=== PATIENT | female | born 1935 | race Caucasian/White ===

== ENCOUNTER 2017-08-01 10:46 | Inpatient (IN) | payer MEDICARE, OTHER ==
[~2017-08-01] VITALS: Ht 180.3 cm; Wt 72.8 kg
[~2017-08-01 10:46] MED LIST: ASPI-9 PO; CYCL10TA9 PO; DCS100C PO; DILT30TA30 PO; ESOM20CA PO; FLUC100T PO; HYDR-3730 PO; LORA0.5T PO; LORA2TAB PO; MIRT30TA6 PO; NITR-65 PO; ONDA-43 PO; POLY17PO23 GT; PRIM250T33 PO; PROM50SU10 RC; QUET25TA PO; QUET50TA PO; SENN8.6T80 GT; SUCR1TAB23 PO; TRAM-21 PO
[2017-08-01] MEDS ORDERED: FAMOTIDINE 20 MG (PEPCID) TABLET PO PRN (12:30)
[2017-08-01] MEDS: FAMOTIDINE 20 MG (PEPCID) TABLET PO SCH ×2 (13:30→20:52)
[2017-08-01] MEDS: clonazePAM 0.5 MG (KlonoPIN) TAB PO SCH ×2 (13:56→20:51)
[2017-08-01 15:00] VITALS: BP 103/63
--- NOTE | 2017-08-01 15:33 | Physical Therapy Evaluation ---
PT Evaluation-General Medical Diagnosis Admission Date Aug 01, 2017 at 14:25 Medical Diagnosis: Right distal femoral fracture Onset Date: Jul 26, 2017 Therapy Diagnosis Therapy Diagnosis: Poor activity tolerance, functional mobility, weakness, pain Height/Weight Height (Feet): 5 Height (Inches): 11.00 Weight (Pounds): 132 Precautions Precautions/Isolations: Fall Prevention, Standard Precautions NWB on the RLE Weight Bear Status Right Lower Extremity: Right Non Weight Bearing Left Lower Extremity: Left Full Weight Bearing Referral Physician: Michael Reason for Referral: Evaluation/Treatment Medical History Additional Medical History TKA in R and L, BEATRICE in R, pacemaker Current History s/p R femoral fracture and underwent ORIF and developed acute renal failure and acute blood loss Reviewed History: Yes Social History Home: Apartment Current Living Status: Alone Entry Into Home: Stairs With Railing PT Steps Into Home: 2 PT Steps Inside Home: 1 Pt has daughter visit everyday and another woman is with her to help with bathing for 4-6 hours per day. Prior/Core FIM Prior Level of Function Functional [place] Measure 0=Not Assessed/NA 4=Minimal Assistance 1=Total Assistance 5=Supervision or Setup 2=Maximal Assistance 6=Modified [place] 3=Moderate Assistance 7=Complete [place] Bed Mobility: 7 Transfers (B,C,W/C) (FIM): 6 Gait: 6 Locomotion: 6 Patient was using a 4 wheeled walker PT Evaluation-Current Subjective Pt is sitting in [facility] pre tx and rates pain at 5/10 in the R distal thigh. Pt agrees to PT. Pain Numeric Pain Scale: 5-Moderate Pain Pt/Family Goals [place] at home with woman visiting for 4-6 hours per day Objective Patient Orientation: Person, Place, Situation Attachments: Knee Immobilizer HELEN wrap on RLE from ankle to distal thigh ROM/Strength ROM Lower Extremities R: NT due to knee immobilizer L: grossly WNL with mild tightness in hip IR Strenght Lower Extremities NT Integumentary/Posture Integumentary Patient had a lot of swelling in her right lower extremity, especially in her foot, but it was not pitting. Nurse notified. Neuromuscular (Tone, Coordination, Reflexes) NT Sensory Vision: Functional Hearing: Functional Sensation Right Lower Extremit: Intact Sensation Left Lower Extremity: Intact Sensation Lower Extremities Patient had intact light touch sensation tested in both lower extremities. Transfers Functional [place] Measure 0=Not Assessed/NA 4=Minimal Assistance 1=Total Assistance 5=Supervision or Setup 2=Maximal Assistance 6=Modified [place] 3=Moderate Assistance 7=Complete IndependenceIRFPAI Quality Coding Scale 6 Independent with activity with or without an assistive device 5 Patient requires set up or clean up by helper. Patient completes activity by themselves 4 Supervision or touching assist (CGA). [place] provide cues , steadying assist 3 The helper provides less than half the effort to complete the activity 2 The helper provides more than half the effort to complete the activity 1 Dependent. The helper does all the effort to complete an activity 7 Patient refused to complete or attempt activity 9 The patient did not perform the activity before the current illness or injury 88 Not attempted due to Medical conditions or safety concerns Transfers (B, C, W/C) (FIM): 1 Scootin Rollin Roll Left to Right (QC): 4 Supine to/from Sit: 4 Sit to/from Stand: 1 bed t/f WC(FIM only if WC use): 1 Sit to Lying (QC): 4 Lying to Sitting/Side of Bed(Q: 4 Sit to Stand (QC): 1 Chair/Vvx-qq-Epohe Xfer(QC): 1 Car Transfer (QC): 88 Patient performed bed mobility with min assist, all transfers and sit to stand was total assist Gait Does the Patient Walk?: No and Walking Goal IS indicated Mode of Locomotion: Wheelchair Anticipated Mode of Locomotion: Walk Gait (FIM): 0 Distance (FIM): 0=does not occure Walk 10 feet (QC): 88 Walk 50 ft with 2 Turns(QC): 88 Walk 150 ft (QC): 88 Walking 10ft/uneven surface-QC: 88 Distance: 0 feet Comments/Gait Description Pt is not yet walking. She is dependent for just standing. Wheelchair Training Does the Pt Use a Wheelchair?: No Stairs Pt did not perform steps because she is not yet walking. Balance Sitting Static: Normal Sitting Dynamic: Poor Standing Static: Poor Standing Dynamic: Poor Picking up an Object (QC): 88 Treatment Pt performing bed mobility and functional activity. Assessment/Needs Pt seems to be fearful of standing as she requires total A for sit to stand and bed to chair transfer. As time went on, pain in R distal thigh increase form / 10 to 7/10. Rehab Potential: Fair Equipment Needs FWW PT Short Term Goals Short Term Goals Time Frame: Aug 08, 2017 Transfers (B,C,W/C) (FIM): 3 Gait (FIM): 1 Distance (FIM): 7=225-39 ft Gait Distance Comment: 20' Gait Level of Assist: 4 Gait Assistive Device: FWW Wheelchair (FIM): 5 Wheelchair distance (FIM): 8=777-31 ft Wheelchair Distance: 150 feet Wheelchair Level of Assist: 5 PT Prison Goals Prison Goals PT Prison Goals Time Frame: Aug 22, 2017 Transfers (B,C,W/C) (FIM): 5 Sit to Lying (QC): 4 Lying-Sitting on Side/Bed(QC): 4 Sit to Stand (QC): 4 Rollin Roll Left to Right (QC): 4 Chair/Pgg-vs-Uhfqa Xfer(QC): 4 Car Transfer (QC): 4 Does the Patient Walk: No and Walking Goal IS indicated Gait (FIM): 2 Distance: 50' Walk 10 feet (QC): 4 Walk 10ft-Uneven Surface(QC): 4 Walk 50ft with 2 Turns (QC): 4 Walk 150 ft (QC): 4 Gait Level of Assist: 5 Gait Assistive Device: FWW Does the Pt use WC or Scooter?: No Stairs (FIM): 2 # of Steps: 4 1 Step (curb) (QC): 4 4 Steps (QC): 4 12 Steps (QC): 88 Stairs Level Of Assist: 4 PT Plan Problem List Problem List: Activity Tolerance, Functional Strength, Safety, Balance, Gait, Transfer, Bed Mobility, ROM Treatment/Plan Treatment Plan: Continue Plan of Care Treatment Plan: Bed Mobility, Education, Functional Activity Ana, Functional Strength, Group Therapy, Gait, Safety, Therapeutic Exercise, Transfers Treatment Duration: Aug 22, 2017 Frequency: At least 5 of 7 days/Wk (IRF) Estimated Hrs Per Day: 1.5 hours per day Patient and/or Family Agrees t: Yes Safety Risks/Education Patient Education: Transfer Techniques, Reviewed Precautions, Correct Positioning, W/C Management, Reviewed Don/Doff Brace, Disease Process, Safety Issues Teaching Recipient: Patient Teaching Methods: Demonstration, Discussion Response to Teaching: Reinforcement Needed Discharge Recommendations Plan Patient will perform bed mobility and transfer training, balance and endurance training, functional strengthening, stair training, gait training, and education , to improve functional mobility and independence at home. Therapy D/C Recommendations: Home w/ Family Support, Senior Care (TCU/NH) Time/GCodes Time In: 1414 Time Out: 1514 Total Billed Treatment Time: 60 Total Billed Treatment 1 visit 10' EVM 40' FA PT performed evaluation from [id number]. OT performed evaluation from 1424- 1434. PT and OT co-treated from [id number] for 40'. PT worked on bed mobility, transfers, standing and sitting balance. OT worked on upper extremity positioning during transfers and ADL's. LISE BRUCE PT Aug 01, 2017 15:33
[2017-08-01] MEDS ORDERED: LACTOBACILLUS Acidoph/Bulgar (LACTINEX/FLORANEX) TAB PO SCH (16:00)
--- NOTE | 2017-08-01 16:08 | Physical Therapy Daily Note ---
PT Daily Note-Current Subjective Pt. states she has a fear of falling and will work on trying to let that go so she can participate in Rx better. Pain Numeric Pain Scale: 3 Location: Right Location Body Site: Knee Pain Description: Pressure Transfers Functional [place] Measure 0=Not Assessed/NA 4=Minimal Assistance 1=Total Assistance 5=Supervision or Setup 2=Maximal Assistance 6=Modified [place] 3=Moderate Assistance 7=Complete IndependenceIRFPAI Quality Coding Scale 6 Independent with activity with or without an assistive device 5 Patient requires set up or clean up by helper. Patient completes activity by themselves 4 Supervision or touching assist (CGA). [place] provide cues , steadying assist 3 The helper provides less than half the effort to complete the activity 2 The helper provides more than half the effort to complete the activity 1 Dependent. The helper does all the effort to complete an activity 7 Patient refused to complete or attempt activity 9 The patient did not perform the activity before the current illness or injury 88 Not attempted due to Medical conditions or safety concerns Transfers (B, C, W/C) (FIM): 2 Scootin Rollin Supine to/from Sit: 4 Sit to/from Stand: 2 Weight Bearing Right Lower Extremity: Right Non Weight Bearing Left Lower Extremity: Left Full Weight Bearing Exercises Supine Ex: Ankle pumps (bilkat), Rolling, Straight leg raise Supine Reps: 10 Treatments During SPT toward pts left pt. required mod to max assist of 1-2 BSC to bed. sit to stand x 3 with pt. expressing fear and clinging to the arms of the w/c and BSC requiring instruction and explanation as well as reassurance that she is safe here with therapists for TRFs and mobility. immobilizer insitu on RLE. Pt. in bed after TRF training and toileting with RLE elevated. co Rx with OT for balance and NWB patency during pants up down for toileting. troubleshooting and problem solving for appropriate w/c height as well as likely appropriate TRF mode for nurses was established likely the slide board or 2 man SPT. Assessment Current Status: Good Progress pt. tall at 5ft 11.5 in and will profit from tall w/c and cushion as well as lift recline chair. A shoe was applied L foot to attempt to increase pts height for TRF clearance PT Plan Problem List Problem List: Activity Tolerance, Functional Strength, Safety, Balance, Gait, Transfer, Bed Mobility, ROM Treatment/Plan Treatment Plan: Continue Plan of Care Treatment Plan: Bed Mobility, Concurrent Therapy, Education, Functional Activity Ana, Functional Strength, Group Therapy, Gait, Safety, Therapeutic Exercise, Transfers Treatment Duration: Aug 22, 2017 Frequency: At least 5 of 7 days/Wk (IRF) Estimated Hrs Per Day: 1.5 hours per day Patient and/or Family Agrees t: Yes Safety Risks/Education Patient Education: Transfer Techniques, Correct Positioning, Safety Issues Teaching Recipient: Patient Teaching Methods: Demonstration Response to Teaching: Verbalize Understanding, Unable to Return Demonstration ( fearful), Reinforcement Needed Time/GCodes Time In: 1515 Time Out: 1555 Total Billed Treatment Time: 40 Total Billed Treatment 1,FA40m co Rx w OT G Codes Necessary: NIKKI Molina LEADITE HEATER Aug 01, 2017 16:08
--- NOTE | 2017-08-01 16:13 | Occupational Therapy Eval ---
OT Evaluation-General/PLF Medical Diagnosis Admission Date Aug 01, 2017 at 14:25 Medical Diagnosis: R femur fx, R ORIF Onset Date: Jul 27, 2017 Therapy Diagnosis Therapy Diagnosis: decr self care, decr funct mob, decr act merari, weakness, decr funct use UEs Height/Weight Height (Feet): 5 Height (Inches): 11.00 Weight (Pounds): 132 Precautions Precautions/Isolations: Standard Precautions Weight Bear Status Weight Bearing Restriction: Non Weight Bearing Location Restriction: R LE Has knee immobilizer, to be on all the time Medical History Pertinent Medical History: Atrial Fib, CAD, HTN Additional Medical History Pt reported bilat TKA. Anemia, pacemaker Current History Fall at home. s/p R femoral fracture and underwent ORIF and developed acute renal failure and acute blood loss Reviewed History: Yes Social History Home: Apartment Current Living Status: Alone ADL-Prior Level of Function ADL PLOF Comments Pt reported that she was able to manage her basic self care activities except that she has someone help about 4 hours a day, M-F, who helps give her a shower. This person also cleans, and cooks for her. 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 her 11 year old granddaughter comes to stay with her every day after school and her daughter helps her on the weekends. DME/Equipment: Bath Bench, Tub/Shower Drive Self: No OT Current Status Subjective Pt seen in room, up in w/c, agreeable to OT. Pain reported 7/10 in R leg below knee. Not described. Appearance Alert, cooperative, looks fatigued Mental Status/Objective Patient Orientation: Person, Place, Time, Situation Attachments: Knee Immobilizer (R) Current Glasses/Contacts: Yes ("But I don't wear them") Hearing Aids: No Dentures/Partials: Yes (uppers and lowers) Hand Dominance: Right Upper Extremity ROM Grossly WFL bilat. Arthritic changes in hands Upper Extremity Coordination Impaired due to bilat tremors Upper Extremity Sensation Pt reported some general numbness in hands Upper Extremity Strength Grossly 4/5 bilat Edema: Significant edema R foot that is not pitting ADL-Treatment ADL-Current Pt arrived via wheelchair transport and was very fatigued. She was also apprehensive about moving during ADLs. Co-tx with PT due to decreased activity tolerance, fatigue from ride from out of town, need for skilled interventions from two different professionals at the same time. PT looked at transfers, mobility, positioning while OT looked at UE function, ADLs. Pt required two people to transfer from BSC to bed, doing pivot transfers and three people for toileting and lower body dressing (two to stand her and one to manage clothing) . She has a knee immobilizer on R that needs to be on all the time. R foot tends to internally rotate so it was positioned in neutral on pillows. A foot splint would not fit due to immobilizer. Pt is 5'11" tall and needs taller equipment such as tall BSC and w/c with cushion Functional [place] Measure 0=Not Assessed/NA 4=Minimal Assistance 1=Total Assistance 5=Supervision or Setup 2=Maximal Assistance 6=Modified [place] 3=Moderate Assistance 7=Complete IndependenceIRFPAI Quality Coding Scale 6 Independent with activity with or without an assistive device 5 Patient requires set up or clean up by helper. Patient completes activity by themselves 4 Supervision or touching assist (CGA). [place] provide cues , steadying assist 3 The helper provides less than half the effort to complete the activity 2 The helper provides more than half the effort to complete the activity 1 Dependent. The helper does all the effort to complete an activity 7 Patient refused to complete or attempt activity 9 The patient did not perform the activity before the current illness or injury 88 Not attempted due to Medical conditions or safety concerns Eating (FIM): 5 (Pt reported setup needed for meals. She is able to feed herself and did not think that tremors affected her eating. She wears dentures and there are food that she cannot eat without them. ) Eating (QC): 5 Bathing (FIM): 1 (70%. Sponge bath. Unable to stand without help to wash bottom - required three person assist (two to stand and one to clean)) Bathing Location: L Arm, R Arm, L Upper Leg, R Upper Leg, Chest, Abdomen, Perineal Area Shower/Bathe Self (QC): 1 Upper Body Dressing (FIM): 4 (Just a little help needed to pull shirt down in back. Able to take shirt off) Upper Body Dressing (QC): 3 Lower Body Dressing (FIM): 1 (Three people needed - two to stand her and 1 to manage clothing. Unable to doff/don pants or slipper socks) Lower Body Dressing (QC): 1 On/Off Footwear (QC): 1 Toileting (FIM): 1 (Two people to stand her to wipe bottom and one to manage clothing. BSC) Toileting Hygiene (QC): 1 Toilet/Commode Transfer (FIM): 1 (Two person assist, BSC) Toilet Transfer (QC): 1 At end of tx, pt was in bed, 4 rails up, all needs met. Orientation to rehab process and expectations completed. Education OT Patient Education: Modified ADL techniques, Purpose of tx/functional activities, Reviewed precautions, Rehab process, Safety issues, Transfer techniques Teaching Recipient: Patient Teaching Methods: Demonstration, Discussion Response to Teaching: Verbalize Understanding, Reinforcement Needed OT Short Term Goals Short Term Goals Time Frame: Aug 15, 2017 Bathing(FIM): 4 Lower Body Dressing(FIM): 3 Toileting(FIM): 3 Toilet/Commode Transfer(FIM): 3 Additional Short Term Goals: 1-Demonstrate ADL Tasks, 2-Verbalize Understanding , 3-ImproveStrength/Ana 1=Demonstrate adherence to instructed precautions during ADL tasks. 2=Patient will verbalize/demonstrate understanding of assistive devices/ modifications for ADL. 3=Patient will improve strength/tolerance for activity to enable patient to perform ADL's. OT Voip Technician Goals Voip Technician Goals Time Frame: Aug 22, 2017 Eating (FIM): 6 Eating (QC): 6 Groomin Oral Hygiene (QC): 6 Bathing(FIM): 5 Shower/Bathe Self (QC): 5 Upper Body Dressing(FIM): 5 Upper Body Dressing (QC): 5 Lower Body Dressing(FIM): 5 Lower Body Dressing (QC): 5 On/Off Footwear (QC): 5 Toileting(FIM): 5 Toileting Hygiene (QC): 5 Toilet/Commode Transfer(FIM): 5 Toilet/Commode Transfer (QC): 5 Shower Transfer(FIM): 5 Additional Goals: 1-Demonstrate ADL Tasks, 2-Verbalize Understanding, 3- ImproveStrength/Ana 1=Demonstrate adherence to instructed precautions during ADL tasks. 2=Patient will verbalize/demonstrate understanding of assistive devices/ modifications for ADL. 3=Patient will improve strength/tolerance for activity to enable patient to perform ADL's. OT Education/Plan Problem List/Assessment Assessment: Decreased Activ Tolerance, Decreased UE Strength, Dependent Transfers, Impaired Coordination, Impaired Funct Balance, Impaired Self-Care Skills, Restricted Funct UE ROM Pt would benefit from skilled OT to increase her independence in basic self care and to decrease caregiver burden Discharge Recommendations Plan/Recommendations: Continue POC Barriers to Progress fear of movement, inability to maintain weight bearing restrictions Treatment Plan/Plan of Care Treatment,Training & Education: Yes Patient would benefit from OT for education, treatment and training to promote independence in ADL's, mobility, safety and/or upper extremity function for ADL' s. Plan of Care: ADL Retraining, Functional Mobility, Group Exercise/Act as Ind ( education, exercise, act tolerance, funct activities, mobility), UE Funct Exercise/Act, UE Neuromus Re-Ed/Coord Treatment Duration: Aug 22, 2017 Frequency: At least 5 of 7 days/Wk (IRF) Estimated Hrs Per Day: 1.5 hours per day Agreement: Yes Rehab Potential: Fair Time/GCodes Start Time: 14:25 Stop Time: 16:00 Total Time Billed (hr/min): 95 Billed Treatment Time visit, 10 minutes evaluation high intensity, 25 minutes functional activities, 60 minutes ADL (all but evaluation were co-tx with PT). MINOO HOLLAND OT Aug 01, 2017 16:13
[2017-08-01] MEDS: ACETAMINOPHEN 500 MG TAB (TYLENOL) PO PRN (16:55)
[2017-08-01] MEDS: PRIMIDONE 250MG (MYSOLINE) TAB PO SCH ×2 (16:56→20:52)
--- NOTE | 2017-08-01 18:15 | Diagnostic Imaging Report ---
PROCEDURE: US right lower extremity venous. TECHNIQUE: Multiple real-time grayscale images were obtained over the right lower extremity in various projections. Additional duplex Doppler and color Doppler images were also obtained. INDICATION: Leg pain and swelling. FINDINGS: There are no prior studies available for comparison. There is generally good blood flow and compressibility at all levels of the deep venous system. There is no evidence for deep venous thrombosis. IMPRESSION: There is no evidence for deep venous thrombosis of the right lower extremity. Dictated by: Dictated on workstation # [id number]
[2017-08-01 18:36] VITALS: BP 107/61
[2017-08-01] MEDS ORDERED: INFLUENZA TRIvalent 2017-2018 0.5 ML/45 MCG SYR IM ONE (18:45)
[2017-08-01] MEDS: meTOprolol TARTRATE 25 MG (LOPRESSOR) TABLET PO SCH (20:51)
[2017-08-01] MEDS: SENNA W/DOCUSATE (SENOKOT S) TABLET PO SCH (20:52)
[2017-08-01] MEDS: DILTIAZEM 30 MG (CARDIZEM) TAB PO SCH (20:52)
[2017-08-01] MEDS: MIRTAZAPINE 15 MG (REMERON) TAB PO SCH (20:52)
[2017-08-01] MEDS ORDERED: meTOprolol TARTRATE 50 MG (LOPRESSOR) TAB PO SCH (21:00)
[2017-08-02 05:11] VITALS: BP 99/57
[2017-08-02] MEDS: PRIMIDONE 250MG (MYSOLINE) TAB PO SCH ×3 (05:28→20:20)
[2017-08-02 08:51] VITALS: BP 120/78
[2017-08-02] MEDS: FAMOTIDINE 20 MG (PEPCID) TABLET PO SCH ×2 (08:53→20:21)
[2017-08-02] MEDS: ASPIRIN E.C. 325 MG (ECOTRIN) TABLET PO SCH (08:53)
[2017-08-02] MEDS: DULoxetine 30 MG (CYMBALTA) CAP PO SCH (08:54)
[2017-08-02] MEDS: SENNA W/DOCUSATE (SENOKOT S) TABLET PO SCH ×2 (08:54→20:21)
[2017-08-02] MEDS: meTOprolol TARTRATE 50 MG (LOPRESSOR) TAB PO SCH (08:54)
[2017-08-02] MEDS: clonazePAM 0.5 MG (KlonoPIN) TAB PO SCH ×3 (08:54→20:21)
[2017-08-02] MEDS: LACTOBACILLUS Acidoph/Bulgar (LACTINEX/FLORANEX) TAB PO SCH (08:54)
[2017-08-02] MEDS: DILTIAZEM 30 MG (CARDIZEM) TAB PO SCH ×2 (08:54→20:21)
[2017-08-02] MEDS: ACETAMINOPHEN 500 MG TAB (TYLENOL) PO PRN ×2 (08:55→23:56)
[2017-08-02] MEDS ORDERED: lisINopril 20 MG (ZESTRIL) TAB PO SCH ×2 (09:00)
[2017-08-02] MEDS ORDERED: HYDROCHLOROTHIAZIDE 12.5 MG (HCTZ) CAP PO SCH (09:00)
[2017-08-02] MEDS ORDERED: AMIODARONE 200 MG (CORDARONE) TAB PO SCH (09:00)
--- NOTE | 2017-08-02 09:12 | PM&R Post Admission Assessment ---
Post Admission Physician Asses The preadmission screen agrees with the post admission assessment that the patient is a good candidate for inpatient rehabilitation. The patient will have a comprehensive program of inpatient rehabilitation with a goal of maximizing level of functional independence prior to discharge home with daughter and HHC. The patient will have PT/OT ninety minutes per day, each discipline, five days a week for gait, strengthening, conditioning, balance , ADLs, any patient/family/caregiver training as necessary. Speech therapy to do cognitive assessment and treat as indicated. Rehabilitation nursing to assist with bowel, bladder, skin, wound care, medication administration, pain management. Mixer Operator [employer] to assist with discharge planning, community reentry. SCD's for DVT prophylaxis. She appears to be well motivated to participate in three hours of therapy a day. She should be able to tolerate three hours of therapy a day from a medical and surgical standpoint. She should benefit from the three hours of therapy a day. She has a reasonable discharge plan, reasonable discharge rehabilitation goals and a supportive family. She has various comorbidities that need to be closely monitored with medications and treatments adjusted on a daily basis as needed. These include: Postop anemia Acute renal failure due to dehydration SSS s/p pacemaker SVT Prior BTKRS and RT BEATRICE for OA Barriers to discharge for this patient who had been independent prior to this are for her to be modified independent to supervision for ADLs and mobility skills at the w/c level of function due to NWBS RLE prior to discharge home with daughter and HHC, so as to lessen the burden of the caregivers.The patient and family are considering a discharge to an RETIREMENT if necessary. Risks for this patient include: 1. Fall 2. Fracture 3. DVT 4. Pulmonary embolism 5. Wound infection 6. Skin breakdown 7. Contractures 8. Poorly controlled pain 9. Urinary retention 10. UTI 11. Respiratory infection 12. Aspiration 13. recurrent SVT 14. Hypotension Estimated Length of Stay: 17 days Prognosis: Rehab prognosis appears good for goal of discharge home with daughter and HHC or to an [facility] modified independent to supervision for ADLs and mobility skills.at the w/c level of function until WBS can be advanced RLE by orthopedics. JACQUELINE HORNE MD Aug 02, 2017 09:12
--- NOTE | 2017-08-02 09:37 | Physical Therapy Daily Note ---
PT Daily Note-Current Subjective Patient is in bed and agrees to PT. Pain Numeric Pain Scale: 6 Location: Right Location Body Site: Thigh Pain Description: Ache, Acute Mental Status Patient Orientation: Normal For Age Attachments: Knee Immobilizer Transfers Functional [place] Measure 0=Not Assessed/NA 4=Minimal Assistance 1=Total Assistance 5=Supervision or Setup 2=Maximal Assistance 6=Modified [place] 3=Moderate Assistance 7=Complete IndependenceIRFPAI Quality Coding Scale 6 Independent with activity with or without an assistive device 5 Patient requires set up or clean up by helper. Patient completes activity by themselves 4 Supervision or touching assist (CGA). [place] provide cues , steadying assist 3 The helper provides less than half the effort to complete the activity 2 The helper provides more than half the effort to complete the activity 1 Dependent. The helper does all the effort to complete an activity 7 Patient refused to complete or attempt activity 9 The patient did not perform the activity before the current illness or injury 88 Not attempted due to Medical conditions or safety concerns Transfers (B, C, W/C) (FIM): 2 Scootin Rollin Roll Left to Right (QC): 5 Supine to/from Sit: 4 Sit to/from Stand: 2 Sit to Lying (QC): 4 Sit to Stand (QC): 2 Chair/Cdb-ut-Yzahw Xfer(QC): 2 Bed to/from Chair: 2 Patient performed bed mobility to EOB with PT assist for right LE. Patient did perform bridging and rolling to pull pants up in supine position. Sit to stand and SPT max assist with PT to left. Weight Bearing Right Lower Extremity: Right Non Weight Bearing Left Lower Extremity: Left Full Weight Bearing Exercises Supine Ex: Ankle pumps, Quad Set, Heel Slides (left LE), Straight leg raise ( AAROM right LE) Supine Reps: 10 (2 sets) Assessment Patient c/o nausea during treatment, however, participate with therapy without difficulty. PT to increase activity as tolerated by patient. PT Short Term Goals Short Term Goals Time Frame: Aug 08, 2017 Transfers (B,C,W/C) (FIM): 3 Gait (FIM): 1 Distance (FIM): 3=763-54 ft Gait Distance Comment: 20' Gait Level of Assist: 4 Gait Assistive Device: FWW Wheelchair (FIM): 5 Wheelchair distance (FIM): 3=124-37 ft Wheelchair Distance: 150 feet Wheelchair Level of Assist: 5 PT Certified Orthotist Goals Certified Orthotist Goals PT Mcc Goals Time Frame: Aug 22, 2017 Transfers (B,C,W/C) (FIM): 5 Sit to Lying (QC): 4 Lying-Sitting on Side/Bed(QC): 4 Sit to Stand (QC): 4 Rollin Roll Left to Right (QC): 4 Chair/Yey-rd-Wmrwb Xfer(QC): 4 Car Transfer (QC): 4 Does the Patient Walk: No and Walking Goal IS indicated Gait (FIM): 2 Distance: 50' Walk 10 feet (QC): 4 Walk 10ft-Uneven Surface(QC): 4 Walk 50ft with 2 Turns (QC): 4 Walk 150 ft (QC): 4 Gait Level of Assist: 5 Gait Assistive Device: FWW Does the Pt use WC or Scooter?: No Stairs (FIM): 2 # of Steps: 4 1 Step (curb) (QC): 4 4 Steps (QC): 4 12 Steps (QC): 88 Stairs Level Of Assist: 4 PT Plan Treatment/Plan Treatment Plan: Continue Plan of Care Treatment Plan: Bed Mobility, Concurrent Therapy, Education, Functional Activity Ana, Functional Strength, Group Therapy, Gait, Safety, Therapeutic Exercise, Transfers Treatment Duration: Aug 22, 2017 Frequency: At least 5 of 7 days/Wk (IRF) Estimated Hrs Per Day: 1.5 hours per day Patient and/or Family Agrees t: Yes Time/GCodes Time In: 850 Time Out: 915 Total Billed Treatment Time: 25 Total Billed Treatment 1 visit EX 14 min FA 11 min SONYA MRAIA PT Aug 02, 2017 09:37
--- NOTE | 2017-08-02 10:49 | HISTORY AND PHYSICAL ---
DATE OF SERVICE: CHIEF COMPLAINT: Difficulty walking. HISTORY OF PRESENT ILLNESS: The patient is an 82-year-old female who has been living alone in an apartment in [place], [place], with her daughter looking at her daily and also a academic associate assisting, who fell at home and sustained a distal right femur fracture. The patient was admitted to [facility] and underwent ORIF of the right distal femur. The patient was made nonweightbearing right lower extremity and is now referred to inpatient rehabilitation unit at [facility] to be closer to home for ongoing care and therapies. She has a supportive daughter that presents to the unit with her. She had been modified independent with a front wheel walker for the most part prior to this. Currently, she is nonambulatory. She is a min assist for transfers and bed mobility. She is modified independent for eating, set up for grooming, min assist for upper body dressing, max assist for lower body dressing and toileting. She has some swelling in the right foot. Doppler was done at this facility upon admission and was negative for DVT. The patient was also somewhat hypotensive and some of her medications were adjusted immediately. PAST MEDICAL HISTORY: She had a postop anemia required transfusion. She had acute renal failure due to dehydration and she was provided with IV fluids. She has a history of SVT and is on diltiazem. Also sick sinus syndrome and is status post pacemaker. PAST SURGICAL HISTORY: Pacemaker and as per above, bilateral total knee replacements, right total hip arthroplasty. ALLERGIES: No known medication allergies. FAMILY HISTORY: Noncontributory. SOCIAL HISTORY: She is single, lives alone. There is an apartment in [place], [place]. Her PCP is Dr. Smith. REVIEW OF SYSTEMS: The 10-point review of systems significant for leg pain, falls, irregular heartbeat. MEDICATIONS: ASA 325 mg p.o. daily, Cymbalta 60 mg p.o. every day, Lactinex one tablet p.o. every day, metoprolol 50 mg p.o. q.a.m. and 25 mg p.o. q. evening, diltiazem 30 mg p.o. b.i.d., Senokot-S 1 tablet p.o. b.i.d., Remeron 30 mg p.o. each day at bedtime, hydrocodone/APAP 5 mg 1 tablet p.o. q.4 hours p.r.n. moderate pain, Mysoline 125 mg p.o. q.8 hours, Pepcid 20 mg p.o. b.i.d., clonazepam 0.5 mg p.o. t.i.d. PHYSICAL EXAMINATION: GENERAL: Significant for a pleasant elderly female, sitting in wheelchair, in no acute distress. VITAL SIGNS: She is afebrile. Blood pressure is 103/63, respirations 18, pulse 81, O2 sat 99% on room air. HEENT: Vision, speech and hearing are grossly intact. No oral lesions noted. NECK: Supple without mass. CHEST: Pacemaker noted. HEART: Regular rhythm. ABDOMEN: Soft, nontender, bowel sounds present. EXTREMITIES: There is 2+ edema noted in the right ankle. No calf tenderness. The incision site is healing. MUSCULOSKELETAL: The patient has functional active range of motion both upper extremities and left lower extremity. NEUROLOGIC: Cognition mild memory deficit. Sensation is grossly intact to light touch. Strength is 4/5 both upper limbs and left lower limb. She has some tremors, which impairs her coordination in both upper limbs. She is right hand dominant. There are some arthritic changes noted in her hands. She is able to dorsi and plantar flex the right ankle. She has limited active range of motion right lower limb due to recent fracture and repair. IMPRESSION: 1. Ambulatory dysfunction secondary to fall resulting distal right femur fracture status post open reduction and internal fixation at [facility], nonweightbearing right lower extremity. 2. Osteoarthritis with prior bilateral total knee replacements and right total hip arthroplasty. 3. Postop anemia status post transfusion. 4. Supraventricular tachycardia, controlled with diltiazem. 5. Sick sinus syndrome, status post pacemaker. 6. Dehydration with acute renal failure, improved with IV fluids. 7. Mild cognitive deficit PLAN: The patient is admitted for a comprehensive program of inpatient rehabilitation with goal of maximizing level of functional Indpendence prior to discharge home with her daughter and home health care. The patient and family are considering assisted living facility placement. Focus will be on wheelchair level of function due to nonweightbearing status right lower extremity until advanced by orthopedics at a later time. Please see details of PT, OT therapies POC in post-admission physician evaluation. Speech therapy to do a cognitive eval and treat as indicated for cognition. Rehabilitation nursing to assist with bowel, bladder, skin, wound care, medication administration, pain management. Social service to assist with discharge planning, community reentry. Therapy with cardiac and fall precautions. Consult Dr. Alvarado in lieu of Dr. Smith for medical concerns. ESTIMATED LENGTH OF STAY: 14 days. PROGNOSIS: Prognosis appears good with goal of discharging either to home with home health care and daughter or to assisted living facility, modified independent to supervision for ADLs and mobility skills at wheelchair level of function due to nonweightbearing status right lower extremity. DIET: Regular. CODE STATUS: Full code. Job ID: [id number] DocumentID: [id number] Dictated Date: 08/02/2017 09:22:58 Swimming Pool Cleaner Date: 08/02/2017 10:48:55 Dictated By: JACQUELINE HORNE MD MTDD
--- NOTE | 2017-08-02 10:54 | Occupational Ther Daily Note ---
OT Current Status-Daily Note Subjective Pt seen in room, up in recliner, after PT. Agreeable to OT. No pain mentioned. Appearance Alert, cooperative. Mental Status/Objective Functional [place] Measure 0=Not Assessed/NA 4=Minimal Assistance 1=Total Assistance 5=Supervision or Setup 2=Maximal Assistance 6=Modified [place] 3=Moderate Assistance 7=Complete [place] ADL-Treatment Pt reported she had toileted over night, using bedpan so had not been up to [facility]. Pt cleaned dentures and put them in (they were soaking already), washed face and hands and combed hair, all with setup, done seating level. Pt left up in recliner, all needs met. Functional [place] Measure 0=Not Assessed/NA 4=Minimal Assistance 1=Total Assistance 5=Supervision or Setup 2=Maximal Assistance 6=Modified [place] 3=Moderate Assistance 7=Complete IndependenceIRFPAI Quality Coding Scale 6 Independent with activity with or without an assistive device 5 Patient requires set up or clean up by helper. Patient completes activity by themselves 4 Supervision or touching assist (CGA). [place] provide cues , steadying assist 3 The helper provides less than half the effort to complete the activity 2 The helper provides more than half the effort to complete the activity 1 Dependent. The helper does all the effort to complete an activity 7 Patient refused to complete or attempt activity 9 The patient did not perform the activity before the current illness or injury 88 Not attempted due to Medical conditions or safety concerns Grooming (FIM): 5 (setup) Oral Hygiene (QC): 5 OT Short Term Goals Short Term Goals Time Frame: Aug 15, 2017 Bathing(FIM): 4 Lower Body Dressing(FIM): 3 Toileting(FIM): 3 Transfers (B,C,W/C) (FIM): 3 Toilet/Commode Transfer(FIM): 3 Additional Short Term Goals: 1-Demonstrate ADL Tasks, 2-Verbalize Understanding , 3-ImproveStrength/Ana 1=Demonstrate adherence to instructed precautions during ADL tasks. 2=Patient will verbalize/demonstrate understanding of assistive devices/ modifications for ADL. 3=Patient will improve strength/tolerance for activity to enable patient to perform ADL's. OT Usp Goals Distillery Worker Goals Time Frame: Aug 22, 2017 Eating (FIM): 6 Eating (QC): 6 Groomin Oral Hygiene (QC): 6 Bathing(FIM): 5 Shower/Bathe Self (QC): 5 Upper Body Dressing(FIM): 5 Upper Body Dressing (QC): 5 Lower Body Dressing(FIM): 5 Lower Body Dressing (QC): 5 On/Off Footwear (QC): 5 Toileting(FIM): 5 Toileting Hygiene (QC): 5 Toilet/Commode Transfer(FIM): 5 Toilet/Commode Transfer (QC): 5 Shower Transfer(FIM): 5 Additional Goals: 1-Demonstrate ADL Tasks, 2-Verbalize Understanding, 3- ImproveStrength/Ana 1=Demonstrate adherence to instructed precautions during ADL tasks. 2=Patient will verbalize/demonstrate understanding of assistive devices/ modifications for ADL. 3=Patient will improve strength/tolerance for activity to enable patient to perform ADL's. OT Education/Plan Problem List/Assessment Pt would benefit from skilled OT to increase her independence in basic self care and to decrease caregiver burden Discharge Recommendations Plan/Recommendations: Continue POC Treatment Plan/Plan of Care Patient would benefit from OT for education, treatment and training to promote independence in ADL's, mobility, safety and/or upper extremity function for ADL' s. Plan of Care: ADL Retraining, Functional Mobility, Group Exercise/Act as Ind ( education, exercise, act tolerance, funct activities, mobility), UE Funct Exercise/Act, UE Neuromus Re-Ed/Coord Treatment Duration: Aug 22, 2017 Frequency: At least 5 of 7 days/Wk (IRF) Estimated Hrs Per Day: 1.5 hours per day Agreement: Yes Rehab Potential: Fair Time/GCodes Start Time: 10:13 Stop Time: 10:29 Total Time Billed (hr/min): 16 Billed Treatment Time visit, 16 minutes ADL MINOO HOLLAND OT Aug 02, 2017 10:54
--- NOTE | 2017-08-02 11:43 | Consultation-Hospitalist ---
HPI History of Present Illness: HPI/Chief Complaint CC: Medical management following right hip fracture HPI: This is an 82-year-old white female clinic patient of Dr. Smith at [facility] who also sees [facility] in [place] who presents to inpatient rehabilitation to recover from right hip fracture. Since she has been here she is been placed on bowel regimen due to constipation and had a right lower extremity ultrasound to rule out DVT due to the significant edema but that was negative for thrombosis. She has been restarted on all of her home medication except for blood pressure medicine since she has been slightly hypotensive. Her family has no concerns at this time and patient appears to be comfortable. Source: patient Exam Limitations: no limitations Date Seen 08/02/17 Attending Physician Kedar Rodriguez MD PCP Yanni Smith MD Referring Physician Date of Admission Aug 01, 2017 at 14:25 Home Medications & Allergies Home Medications Reviewed patient Home Medication Reconciliation Form Allergies Allergies Coded Allergies No Known Drug Allergies (Ynapomaeoc00/7/14) Past Wdkrwvb-Okpwxt-Zvrlgc Hx Patient Social History Marrital Status: Employed/Student: retired Alcohol Use: Denies Use Recreational Drug Use: No Smoking Status: Never a Smoker Physical Abuse Screen: No Sexual Abuse: No Recent Foreign Travel: No Contact w/other who traveled: No Recent Hopitalizations: Yes Recent Infectious Disease Expo: No Immunizations Up To Date Date of Pneumonia Vaccine: Jul 23, 2012 Seasonal Allergies Seasonal Allergies: No Surgeries Yes (HEART ABLATION, PACEMAKER, BILAT TKR, RIGHT HIP REPLACEMENT, LEFT SHOULDER ) Orthopedic, Pacemaker Respiratory No Cardiovascular Yes (MEDITRONIC PACEMAKER for SVT) Hypertension Neurological No Reproductive System Female Reproductive Disorders: Denies Genitourinary Yes Renal Failure Gastrointestinal No Musculoskeletal Yes Arthritis Endocrine History of Endocrine Disorders: No HEENT History of HEENT Disorders: No Loss of Vision: Denies Cancer No Psychosocial History of Psychiatric Problem: No Blood Transfusions History of Blood Disorders: No Adverse Reaction to a Blood Tr: No Family Medical History Family Hx: Diabetes mellitus 19 MOTHER FH: cancer 19 MOTHER FH: heart disease 19 FATHER FH: stroke 19 MOTHER Hypertension 19 FATHER Review of Systems Constitutional: see HPI, weakness EENTM: no symptoms reported Respiratory: no symptoms reported Cardiovascular: no symptoms reported Gastrointestinal: constipation Genitourinary: no symptoms reported Musculoskeletal: joint pain Skin: no symptoms reported Psychiatric/Neurological: No Symptoms Reported All Other Systems Reviewed Negative Unless Noted: Yes Physical Exam Physical Exam Vital Signs Vital Sign - Last 12Hours 08/01/17 15:00 Temp 97.9 Pulse 81 Resp 18 B/P (MAP) 103/63 (76) Pulse Ox 99 O2 Delivery Room Air Capillary Refill : General Appearance: No Apparent Distress, WD/WN, Chronically ill Eyes: Bilateral Eye Normal Inspection, Bilateral Eye PERRL HEENT: PERRL/EOMI, Normal ENT Inspection, Pharynx Normal Neck: Full Range of Motion, Normal Inspection, Non Tender, Supple, Carotid Bruit Respiratory: Chest Non Tender, Lungs Clear, Normal Breath Sounds, No Accessory Muscle Use, No Respiratory Distress Cardiovascular: Regular Rate, Rhythm, No Edema, No Gallop, No JVD, No Murmur, Normal Peripheral Pulses Gastrointestinal: Normal Bowel Sounds, No Organomegaly, No Pulsatile Mass, Non Tender, Soft Back: Normal Inspection, No CVA Tenderness, No Vertebral Tenderness Extremity: Normal Capillary Refill, Normal Inspection, Normal Range of Motion, Non Tender, No Calf Tenderness, No Pedal Edema Neurologic/Psychiatric: Alert, Oriented x3, No Motor/Sensory Deficits, Depressed Affect Skin: Normal Color, Warm/Dry Lymphatic: No Adenopathy Assessment/Plan Admission Diagnosis Assessment: Severe debility following right hip fracture status post uncomplicated repair Postop anemia requiring transfusion History of acute renal failure due to dehydration Sick sinus syndrome requiring permanent pacemaker managed by Dr. Serafin Sarmiento Hypertension Assessment and Plan Plan: Bowel regimen Home meds Monitor blood pressure Rehabilitation Copy Copies To 1: YANNI SMITH MD Clinical Quality Measures DVT/VTE Risk/Contraindication: Risk Factor Score Per Nursin RFS Level Per Nursing on Admit: 4+=Very High ZEUS FREEMAN DO Aug 02, 2017 11:43
[2017-08-02 17:49] VITALS: BP 114/57
[2017-08-02] MEDS: meTOprolol TARTRATE 25 MG (LOPRESSOR) TABLET PO SCH (20:20)
[2017-08-02] MEDS: MIRTAZAPINE 15 MG (REMERON) TAB PO SCH (20:21)
[2017-08-03 05:14] VITALS: BP 135/84
[2017-08-03] MEDS: PRIMIDONE 250MG (MYSOLINE) TAB PO SCH ×3 (07:03→21:03)
--- OUTSIDE RECORDS SUMMARY | 2017-08-03 08:01 | XMS REPORT | Clinical Summary ---
Author Author [facility] Organization [facility] Address Unknown Phone Unavailable Care Team Providers Care Prekindergarten Teacher Name Role Phone Thi Macdonald MD Unavailable Yanni Smith MD PCP Source Comments Some departments are not documenting in the electronic medical record. If you do not see the information that you expected, contact Release of Information in the Health Information Management department at [phone] for further assistance in locating additional records.[facility] Allergies No Known Allergies Current Medications Prescription Sig. Disp. Refills Start End Date Status Date LORazepam (ATIVAN) 1 mg Take 1 mg by mouth three Active tablet times daily. Patient takes 1/2 tab twice daily and 2tabs at bedtime escitalopram (LEXAPRO) 10 Take 10 mg by mouth Active mg tablet daily. amiodarone (CORDARONE) Take 200 mg by mouth four Active 200 mg tablet times weekly. diltiazem (CARDIZEM) 30 Take 30 mg by mouth twice Active mg tablet daily. primidone (MYSOLINE) 250 Take 250 mg by mouth four Active mg tablet times daily. Patient takes 1/2 tab four times daily VITS Take by mouth daily. Active W-CA,FE,FA(<1MG) ( VITAMIN PO) cholecalciferol (Vitamin Take 1,000 Units by mouth Active D3) (VITAMIN D) 1,000 daily. units tablet lisinopril (PRINIVIL; Take 20 mg by mouth Active ZESTRIL) 20 mg tablet daily. DOCUSATE SODIUM (DULCOLAX Take by mouth daily. Active STOOL SOFTENER PO) ondansetron (ZOFRAN) 8 mg Take 8 mg by mouth every Active tablet 8 hours as needed. cyclobenzaprine Take 5 mg by mouth three Active (FLEXERIL) 5 mg tablet times daily as needed. traMADol (ULTRAM) 50 mg Take 50 mg by mouth every Active tablet 8 hours as needed. esomeprazole DR(+) 1 Cap twice daily. 60 Cap 3 01/12/20 Active (NEXIUM) 40 mg 13 capsuleIndications: Dyspepsia, Anemia Active Problems Problem Noted Date Dyspepsia 08/13/2012 Overview: Duration: 6 mth. EGD 02/2012: h.pylori positive, treated with ABx. Eradication has not been documented. Anemia 08/13/2012 Overview: No evidence of overt GI bleeding. egd and colonoscopy in 02/2012: no source of bleeding. Family History Medical History Relation Name Comments Diabetes Father Heart Disease Father Stroke Father Heart Disease Mother Stroke Mother Diabetes Sister Heart Disease Sister Cancer Sister Diabetes Sister Relation Name Status Comments Daughter Alive Father Mother Sister Alive Sister Sister Social History Tobacco Use Types Packs/Day Years Used Date Never Smoker Alcohol Use Drinks/Week oz/Week Comments No Sex Assigned at Date Recorded Not on file Last Filed Vital Signs Vital Sign Reading Time Taken Blood Pressure 145/74 08/13/2012 10:52 AM LOOM FIXER APPRENTICE Pulse 100 08/13/2012 10:52 AM LOOM FIXER APPRENTICE Temperature 36.1 C (97 F) 08/13/2012 10:52 AM LOOM FIXER APPRENTICE Respiratory Rate 16 08/13/2012 10:52 AM LOOM FIXER APPRENTICE Oxygen Saturation - - Inhaled Oxygen - - Concentration Weight 60.4 kg (133 lb 1.6 oz) 08/13/2012 10:52 AM LOOM FIXER APPRENTICE Height 180.3 cm (5' 11") 08/13/2012 10:52 AM LOOM FIXER APPRENTICE Body Mass Index 18.56 08/13/2012 10:52 AM LOOM FIXER APPRENTICE Plan of Treatment Health Maintenance Due Date Last Done Comments PHYSICAL (COMPREHENSIVE) 02/02/1942 EXAM PERTUSSIS VACCINE 02/02/1948 TETANUS VACCINE 1954 SHINGLES VACCINE 1997 OSTEOPOROSIS SCREENING 2002 PREVNAR/PNEUMOVAX (#1) 2002 INFLUENZA VACCINE 02/04/2017 Results Not on filefrom Last 3 Months
--- OUTSIDE RECORDS SUMMARY | 2017-08-03 08:01 | XMS REPORT | Continuity of Care Document ---
Author Author [facility] Organization [facility] Address Unknown Phone Unavailable Allergies Active Description Code Type Severity Reaction Onset Reported/Identified Relationship to Patient Clinical Status Yes No Known Drug Allergies [id number] Drug Allergy Unknown N/A 05/13/2014 Medications There is no data. Problems Date Dx Coded Attending Type Code Diagnosis Diagnosed By 05/20/2014 BRUNO ABRAHAM MD Ot 574.10 06/09/2014 BRUNO ABRAHAM MD Ot 496 06/09/2014 BRUNO ABRAHAM MD Ot 574.10 06/09/2014 BRUNO ABRAHAM MD Ot V72.83 06/09/2014 BRUNO ABRAHMA MD Ot V74.8 01/20/2015 BRUNO ABRAHAM MD Ot 530.11 01/20/2015 BRUNO ABRAHAM MD Ot 535.50 01/20/2015 BRUNO ABRAHAM MD Ot 553.3 Procedures There is no data. Results There is no data. Encounters ACCT No. Visit Date/Time Discharge Status Pt. Type Provider Facility Loc./Unit Complaint [id number] 01/20/2015 11:07:00 01/20/2015 13:35:00 DIS Outpatient BRUNO ABRAHAM MD [facility] [id number] 05/20/2014 07:15:00 05/20/2014 14:30:00 DIS Outpatient BRUNO ABRAHAM MD [facility] [id number] 05/19/2014 14:59:00 05/19/2014 23:59:59 CLS Outpatient BRUNO ABRAHAM MD [facility] PREOP [id number] 05/13/2014 07:08:00 05/13/2014 23:59:59 CLS Outpatient [id number] 08/01/2017 14:25:00 ACT Inpatient JACQUELINE HORNE MD [facility] IRF RIGHT FEMUR FRACTURE
[2017-08-03 08:35] VITALS: BP 127/68
[2017-08-03] MEDS: meTOprolol TARTRATE 50 MG (LOPRESSOR) TAB PO SCH (08:35)
[2017-08-03] MEDS: clonazePAM 0.5 MG (KlonoPIN) TAB PO SCH ×3 (08:35→20:19)
[2017-08-03] MEDS: DILTIAZEM 30 MG (CARDIZEM) TAB PO SCH ×2 (08:35→20:19)
[2017-08-03] MEDS: LACTOBACILLUS Acidoph/Bulgar (LACTINEX/FLORANEX) TAB PO SCH (08:35)
[2017-08-03] MEDS: FAMOTIDINE 20 MG (PEPCID) TABLET PO SCH ×2 (08:35→20:20)
[2017-08-03] MEDS: SENNA W/DOCUSATE (SENOKOT S) TABLET PO SCH ×2 (08:35→20:20)
[2017-08-03] MEDS: DULoxetine 30 MG (CYMBALTA) CAP PO SCH (08:35)
[2017-08-03] MEDS: ASPIRIN E.C. 325 MG (ECOTRIN) TABLET PO SCH (08:35)
[2017-08-03 18:11] VITALS: BP 128/78
[2017-08-03] MEDS: MIRTAZAPINE 15 MG (REMERON) TAB PO SCH (20:19)
[2017-08-03] MEDS: meTOprolol TARTRATE 25 MG (LOPRESSOR) TABLET PO SCH (20:20)
[2017-08-03] MEDS: ACETAMINOPHEN 500 MG TAB (TYLENOL) PO PRN (20:20)
[2017-08-04 04:22] VITALS: BP 117/75
[2017-08-04] MEDS: PRIMIDONE 250MG (MYSOLINE) TAB PO SCH ×3 (05:30→20:18)
[2017-08-04] MEDS: LACTOBACILLUS Acidoph/Bulgar (LACTINEX/FLORANEX) TAB PO SCH (06:38)
[2017-08-04] MEDS: FAMOTIDINE 20 MG (PEPCID) TABLET PO SCH ×2 (06:38→20:19)
[2017-08-04 08:40] VITALS: BP 127/74
--- NOTE | 2017-08-04 09:32 | ST Cognitive Linguistic Eval ---
Speech Evaluation-General Medical Diagnosis R femur fx, R ORIF Onset Date: Jul 27, 2017 Therapy Diagnosis Therapy Diagnosis: Suspected Mild Cognitive Deficit Precautions Precautions/Isolations: Fall Prevention, Standard Precautions Referral Referring Physician: Dr. Kedar Rodriguez Reason for Referral: Evaluation/Treatment Cognitive Evaluation Medical History Pertinent Medical History: Atrial Fib, CAD, HTN Reviewed History: Yes Social History Current Living Status: Alone Speech PLF-Current Status Prior Level of Function The patient denied deficits with language or speech. Per patient, "I have been struggling with my memory for a bit now." Subjective The patient was laying in bed upon entrance. The patient greeted the clinician and stated she was feeling nauseated. The patient's RN was present in the room and provided the patient with water and crackers in attempts to settle her stomach. The patient was agreeable to a limited cognitive evaluation. Language Eval: Auditory Comprehends Simple Yes/No Ques: Functional Indent/Objects Multiple Murphy: Functional Ident/Pics in Multiple Murphy: Functional Follows 1-Step Commands: Functional Follows General Conversations: Functional Language Eval: Verbal Language Completes Spontaneous Greeting: Functional Produces Auto, Serial Info: Functional Imitates Simple Words/Phrases: Functional Word Finding: Mild Requests Basic Needs: Functional States Basic Personal Info: Functional Cognitive Patient Orientation The patient was oriented to month and day of week. The patient stated she was in [place] and the year was "." Objective Cognitive Domain Attention: Mild (Attention was difficult to assess due to the patient's current discomfort.) Memory: Mild (The patient was able to recall two of three single words following a five minute delay.) Objective Impression At this time, the patient demonstrates a minimal to mild cognitive deficit in the area of memory and attention. Due to the patient's current discomfort, a full evaluation was limited. Speech pathology will reattempt a full evaluation at a later date/time, as the patient is feeling less nauseated. Communication/Social Cognition Comprehension: 5 Expression: 5 Social Interaction: 5 Problem Solvin Memory: 4 Speech Patient Assess Expression of Ideas/Wants: Exhibits (3) Understanding [place] Content: Usually Understands (3) Brief Interview-Mental Status: Yes Repetition of Three Words: Three (3) Temporal Orientation: Year: No answer (0) Temporal Orientation: Month: Accurate within 5 days(2) Temporal Orientation: Day: Correct (1) Recall : Wear to say "Sock": Yes, no cue required (2) Recall : Color: Yes, no cue required (2) Recall : Bed: No, could not recall (0) Speech Short Term Goals Short Term Goals Short Term Goals 1. The patient will complete a full cognitive evaluation with limited verbal prompting from the clinician. Time Frame-STG: One Day Speech Cost Reduction Engineer Goals Skilled Nursing Goals 1. To be determined following complete cognitive evaluation. Time Frame: Two Days Speech-Plan Treatment Plan Speech Therapy Treatment Plan: Continue Plan of Care Continue skilled speech pathology to complete a full cognitive evaluation as the patient is feeling less nauseated. Treatment Duration: Aug 18, 2017 Frequency: Modified Program (IRF) (Four to five times per week.) Estimated Hrs Per Day: .5 hour per day Rehab Potential: Fair Safety Risks/Education Teaching Recipient: Patient Teaching Methods: Discussion Response to Teaching: Verbalize Understanding Education Topics Provided: Results, Recommendations, Plan of Care Time Speech Therapy Time In: 08:45 Speech Therapy Time Out: 09:00 Total Billed Time: 15 Billed Treatment Time 1, ELENA MORA Aug 04, 2017 09:32
[2017-08-04] MEDS: ASPIRIN E.C. 325 MG (ECOTRIN) TABLET PO SCH (09:35)
[2017-08-04] MEDS: DILTIAZEM 30 MG (CARDIZEM) TAB PO SCH ×2 (09:35→20:19)
[2017-08-04] MEDS: meTOprolol TARTRATE 50 MG (LOPRESSOR) TAB PO SCH (09:35)
[2017-08-04] MEDS: clonazePAM 0.5 MG (KlonoPIN) TAB PO SCH ×3 (09:35→20:19)
[2017-08-04] MEDS: ACETAMINOPHEN 500 MG TAB (TYLENOL) PO PRN (09:36)
[2017-08-04] MEDS: DULoxetine 30 MG (CYMBALTA) CAP PO SCH (09:36)
[2017-08-04] MEDS: SENNA W/DOCUSATE (SENOKOT S) TABLET PO SCH ×2 (09:41→20:19)
[2017-08-04] MEDS ORDERED: PREMPRO PO (10:13)
[2017-08-04] MEDS ORDERED: DOCU-143 PO (10:13)
[2017-08-04] MEDS ORDERED: LACT1CAP40 PO (10:13)
[2017-08-04] MEDS ORDERED: PRIM250T PO (10:13)
[2017-08-04] MEDS ORDERED: LISI1TAB8 PO (10:13)
[2017-08-04] MEDS ORDERED: ASPI325T32 PO (10:13)
[2017-08-04] MEDS ORDERED: AMIO200T2 PO (10:13)
[2017-08-04] MEDS ORDERED: RANI150T11 PO (10:13)
[2017-08-04] MEDS ORDERED: MIRT30TA6 PO (10:13)
[2017-08-04] MEDS ORDERED: METO50TA15 PO ×2 (10:13→10:23)
[2017-08-04] MEDS ORDERED: DULO60CA58 PO (10:13)
[2017-08-04] MEDS ORDERED: DILT30TA PO (10:13)
[2017-08-04] MEDS ORDERED: CLON0.5T3 PO (10:13)
--- NOTE | 2017-08-04 10:14 | Occupational Ther Daily Note ---
OT Current Status-Daily Note Subjective Pt alert, lying in bed. Pt c/o headache and stomach. Reported to nrsg, pt rated pain 7/10. Pt agreed to therapy. Pt appears anxious and timid about getting up out of bed. Then fearful with transfers, needing continual encouragement. Mental Status/Objective Patient Orientation: Person, Place, Time, Situation Functional [place] Measure 0=Not Assessed/NA 4=Minimal Assistance 1=Total Assistance 5=Supervision or Setup 2=Maximal Assistance 6=Modified [place] 3=Moderate Assistance 7=Complete [place] ADL-Treatment Pt requested to use BSC prior to sponge bathe. Min A to go from supine to siting with HOB raised and using bedrails. Pt then required max A to complete stand pivot transfer. Mulitiple cues to push up from bed and push with L LE to come to stand. Attempted sit to stand 3x's before pt was able to assist to push self up off of bed with arms and L LE. After therapy, pt sitting in w/c with call light/phone in reach. All needs met in room. Functional [place] Measure 0=Not Assessed/NA 4=Minimal Assistance 1=Total Assistance 5=Supervision or Setup 2=Maximal Assistance 6=Modified [place] 3=Moderate Assistance 7=Complete IndependenceIRFPAI Quality Coding Scale 6 Independent with activity with or without an assistive device 5 Patient requires set up or clean up by helper. Patient completes activity by themselves 4 Supervision or touching assist (CGA). [place] provide cues , steadying assist 3 The helper provides less than half the effort to complete the activity 2 The helper provides more than half the effort to complete the activity 1 Dependent. The helper does all the effort to complete an activity 7 Patient refused to complete or attempt activity 9 The patient did not perform the activity before the current illness or injury 88 Not attempted due to Medical conditions or safety concerns Grooming (FIM): 5 (After being positioned in w/c at sink then assist in retrieving dentures from room, pt able to complete own grooming.) Oral Hygiene (QC): 5 Bathing (FIM): 3 (Sitting on BSC, pt was able to bathe upper body, lisa area and upper legs after setup.) Bathing Location: L Arm, R Arm, L Upper Leg, R Upper Leg, Chest, Abdomen, Perineal Area Shower/Bathe Self (QC): 2 Upper Body (FIM): 5 (After set up, pt able to complete by self.) Upper Body Dressing (QC): 5 Lower Body Dressing (FIM): 1 (Assist x2 to don/doff pants. When pt completes standing pt is very anxious and holds onto therapist. Assist to hike pants over hips.) Lower Body Dressing (QC): 1 On/Off Footwear (QC): 1 Toileting (FIM): 1 (When pt completes standing pt is very anxious and holds onto therapist. Assist x2 to cleanse buttocks and manipulate clothing. Pt able to cleanse lisa area sitting on toilet.) Toileting Hygiene (QC): 1 Toilet/Commode Transfer (FIM): 2 Toilet Transfer (QC): 2 OT Short Term Goals Short Term Goals Time Frame: Aug 15, 2017 Bathing(FIM): 4 Lower Body Dressing(FIM): 3 Toileting(FIM): 3 Transfers (B,C,W/C) (FIM): 3 Toilet/Commode Transfer(FIM): 3 Additional Short Term Goals: 1-Demonstrate ADL Tasks, 2-Verbalize Understanding , 3-ImproveStrength/Ana 1=Demonstrate adherence to instructed precautions during ADL tasks. 2=Patient will verbalize/demonstrate understanding of assistive devices/ modifications for ADL. 3=Patient will improve strength/tolerance for activity to enable patient to perform ADL's. OT Crop Duster Goals Group Home Goals Time Frame: Aug 22, 2017 Eating (FIM): 6 Eating (QC): 6 Groomin Oral Hygiene (QC): 6 Bathing(FIM): 5 Shower/Bathe Self (QC): 5 Upper Body Dressing(FIM): 5 Upper Body Dressing (QC): 5 Lower Body Dressing(FIM): 5 Lower Body Dressing (QC): 5 On/Off Footwear (QC): 5 Toileting(FIM): 5 Toileting Hygiene (QC): 5 Toilet/Commode Transfer(FIM): 5 Toilet/Commode Transfer (QC): 5 Shower Transfer(FIM): 5 Additional Goals: 1-Demonstrate ADL Tasks, 2-Verbalize Understanding, 3- ImproveStrength/Ana 1=Demonstrate adherence to instructed precautions during ADL tasks. 2=Patient will verbalize/demonstrate understanding of assistive devices/ modifications for ADL. 3=Patient will improve strength/tolerance for activity to enable patient to perform ADL's. OT Education/Plan Problem List/Assessment Pt would benefit from skilled OT to increase her independence in basic self care and to decrease caregiver burden Discharge Recommendations Plan/Recommendations: Continue POC Treatment Plan/Plan of Care Patient would benefit from OT for education, treatment and training to promote independence in ADL's, mobility, safety and/or upper extremity function for ADL' s. Plan of Care: ADL Retraining, Functional Mobility, Group Exercise/Act as Ind ( education, exercise, act tolerance, funct activities, mobility), UE Funct Exercise/Act, UE Neuromus Re-Ed/Coord Treatment Duration: Aug 22, 2017 Frequency: At least 5 of 7 days/Wk (IRF) Estimated Hrs Per Day: 1.5 hours per day Agreement: Yes Rehab Potential: Fair Time/GCodes Start Time: 09:00 Stop Time: 10:00 Total Time Billed (hr/min): 60 Billed Treatment Time 1 visit-ADL 4 (60 min) SONIA CROCKETT Aug 04, 2017 10:14
[2017-08-04] MEDS: ONDANSETRON 4 MG (ZOFRAN) ORAL DISSOLVE TAB PO PRN (11:05)
[2017-08-04 11:16] LABS: HEMOGLOBIN 9.6 G/DL (11.5-16.0); MEAN PLATELET VOLUME 9.2 FL (7.4-10.4); RED BLOOD COUNT 3.11 10^6/uL (4.35-5.85); RED CELL DISTRIBUTION WIDTH 16.2 % (10.0-14.5); WHITE BLOOD COUNT 8.2 10^3/uL (4.3-11.0)
[2017-08-04 11:43] LABS: ALBUMIN 3.1 GM/DL (3.2-4.5); BILIRUBIN,TOTAL 0.6 MG/DL (0.1-1.0); CREATININE SERUM 1.36 MG/DL (0.60-1.30); POTASSIUM 4.8 MMOL/L (3.6-5.0); TOTAL PROTEIN 5.9 GM/DL (6.4-8.2)
--- NOTE | 2017-08-04 11:45 | Physical Therapy Daily Note ---
PT Daily Note-Current Subjective Pt. states she feels so weak and that she has had nursing lift her in out bed. Pt. states she has been in bed for a long time. Long discussion regarding NWB status and strengthening process. Pain Numeric Pain Scale: 0-No Pain Mental Status Patient Orientation: Person, Place, Time, Situation Attachments: Other-See Comments (right knee immoblizer ) Transfers Functional [place] Measure 0=Not Assessed/NA 4=Minimal Assistance 1=Total Assistance 5=Supervision or Setup 2=Maximal Assistance 6=Modified [place] 3=Moderate Assistance 7=Complete IndependenceIRFPAI Quality Coding Scale 6 Independent with activity with or without an assistive device 5 Patient requires set up or clean up by helper. Patient completes activity by themselves 4 Supervision or touching assist (CGA). [place] provide cues , steadying assist 3 The helper provides less than half the effort to complete the activity 2 The helper provides more than half the effort to complete the activity 1 Dependent. The helper does all the effort to complete an activity 7 Patient refused to complete or attempt activity 9 The patient did not perform the activity before the current illness or injury 88 Not attempted due to Medical conditions or safety concerns Transfers (B, C, W/C) (FIM): 2 Scootin Rollin Supine to/from Sit: 4 Sit to/from Stand: 2 initiated slide board with pt. requiring only min assist with levels even and some education and instruction Weight Bearing Right Lower Extremity: Right Non Weight Bearing Left Lower Extremity: Left Full Weight Bearing Gait Training Does the Patient Walk?: No and Walking Goal IS indicated Wheelchair Training Does the Pt Use a Wheelchair?: Yes Wheelchair (FIM): 2 Wheelchair Distance: 6=338-74 ft Wheelchair Level of Assist: 4 Type of Wheelchair: Manual pt. weak and has difficulty locking brakes, but does with great effort. needs instruction for turns, slow moving for all Exercises Supine Ex: Bridging, Ankle pumps, Quad Set, Rolling, Glut sets, Heel Slides ( left), Short Arc Quads (left), Scooting, Straight leg raise (assist right), Hip abd/add (assist right) Supine Reps: 12 Treatments sit to stand at parallel bars max assist 1-2. after standing pt. maintained 40sec Assessment Current Status: Good Progress, Fair Progress pt. progressed with w/c mobility and slide board is a good safe way for TRF at this time as pt is unable to stand without max assist 1-2 PT Short Term Goals Short Term Goals Time Frame: Aug 08, 2017 Transfers (B,C,W/C) (FIM): 3 Gait (FIM): 1 Distance (FIM): 5=718-66 ft Gait Distance Comment: 20' Gait Level of Assist: 4 Gait Assistive Device: FWW Wheelchair (FIM): 5 Wheelchair distance (FIM): 7=515-11 ft Wheelchair Distance: 150 feet Wheelchair Level of Assist: 5 PT Assistant Portfolio Manager Goals Half-Way Goals PT Assistant Portfolio Manager Goals Time Frame: Aug 22, 2017 Transfers (B,C,W/C) (FIM): 5 Sit to Lying (QC): 4 Lying-Sitting on Side/Bed(QC): 4 Sit to Stand (QC): 4 Rollin Roll Left to Right (QC): 4 Chair/Onn-ht-Yooeg Xfer(QC): 4 Car Transfer (QC): 4 Does the Patient Walk: No and Walking Goal IS indicated Gait (FIM): 2 Distance: 50' Walk 10 feet (QC): 4 Walk 10ft-Uneven Surface(QC): 4 Walk 50ft with 2 Turns (QC): 4 Walk 150 ft (QC): 4 Gait Level of Assist: 5 Gait Assistive Device: FWW Does the Pt use WC or Scooter?: No Stairs (FIM): 2 # of Steps: 4 1 Step (curb) (QC): 4 4 Steps (QC): 4 12 Steps (QC): 88 Stairs Level Of Assist: 4 PT Plan Treatment/Plan Treatment Plan: Continue Plan of Care Treatment Plan: Bed Mobility, Concurrent Therapy, Education, Functional Activity Ana, Functional Strength, Group Therapy, Gait, Safety, Therapeutic Exercise, Transfers Treatment Duration: Aug 22, 2017 Frequency: At least 5 of 7 days/Wk (IRF) Estimated Hrs Per Day: 1.5 hours per day Patient and/or Family Agrees t: Yes Safety Risks/Education Patient Education: Transfer Techniques, Correct Positioning, W/C Management, Safety Issues Teaching Recipient: Patient Teaching Methods: Demonstration, Discussion Response to Teaching: Verbalize Understanding, Return Demonstration, Reinforcement Needed slide board and w/c Time/GCodes Time In: 1000 Time Out: 1115 Total Billed Treatment Time: 75 Total Billed Treatment 1,WC30m,EX15m,FA30m G Codes Necessary: NIKKI Molina CRIPPLE WORKER Aug 04, 2017 11:45
--- NOTE | 2017-08-04 13:49 | Occupational Ther Daily Note ---
OT Current Status-Daily Note Subjective Pt alert, lying in bed. Pt stated that she had to go to the bathroom and felt like she had already started. Mental Status/Objective Patient Orientation: Person, Place, Time, Situation Functional [place] Measure 0=Not Assessed/NA 4=Minimal Assistance 1=Total Assistance 5=Supervision or Setup 2=Maximal Assistance 6=Modified [place] 3=Moderate Assistance 7=Complete [place] ADL-Treatment Min A to go from supine to sitting EOB with HOB raised. CARUSO explained sequence of stand pivot transfer from bed to BSC. Pt progressed by pushing to stand with more strength than earlier in the day. Max A for stand pivot transfer. Pt required assist x2 for toileting, assist to stand then assist to manipulate clothing. Assist x2 for hygiene. Pt transfers to strong side with max A. Pt transferred back to bed with max A. After therapy, pt sitting in recliner with call light/phone in reach. All needs met in room. Nrsg notified that pt was incontinent of bowel. Functional [place] Measure 0=Not Assessed/NA 4=Minimal Assistance 1=Total Assistance 5=Supervision or Setup 2=Maximal Assistance 6=Modified [place] 3=Moderate Assistance 7=Complete IndependenceIRFPAI Quality Coding Scale 6 Independent with activity with or without an assistive device 5 Patient requires set up or clean up by helper. Patient completes activity by themselves 4 Supervision or touching assist (CGA). [place] provide cues , steadying assist 3 The helper provides less than half the effort to complete the activity 2 The helper provides more than half the effort to complete the activity 1 Dependent. The helper does all the effort to complete an activity 7 Patient refused to complete or attempt activity 9 The patient did not perform the activity before the current illness or injury 88 Not attempted due to Medical conditions or safety concerns Toileting (FIM): 1 Toileting Hygiene (QC): 1 Transfers (B, C, W/C) (FIM): 2 Toilet/Commode Transfer (FIM): 2 Toilet Transfer (QC): 2 OT Short Term Goals Short Term Goals Time Frame: Aug 15, 2017 Bathing(FIM): 4 Lower Body Dressing(FIM): 3 Toileting(FIM): 3 Transfers (B,C,W/C) (FIM): 3 Toilet/Commode Transfer(FIM): 3 Additional Short Term Goals: 1-Demonstrate ADL Tasks, 2-Verbalize Understanding , 3-ImproveStrength/Ana 1=Demonstrate adherence to instructed precautions during ADL tasks. 2=Patient will verbalize/demonstrate understanding of assistive devices/ modifications for ADL. 3=Patient will improve strength/tolerance for activity to enable patient to perform ADL's. OT Farmworker Fruit Goals Farmworker Fruit Goals Time Frame: Aug 22, 2017 Eating (FIM): 6 Eating (QC): 6 Groomin Oral Hygiene (QC): 6 Bathing(FIM): 5 Shower/Bathe Self (QC): 5 Upper Body Dressing(FIM): 5 Upper Body Dressing (QC): 5 Lower Body Dressing(FIM): 5 Lower Body Dressing (QC): 5 On/Off Footwear (QC): 5 Toileting(FIM): 5 Toileting Hygiene (QC): 5 Toilet/Commode Transfer(FIM): 5 Toilet/Commode Transfer (QC): 5 Shower Transfer(FIM): 5 Additional Goals: 1-Demonstrate ADL Tasks, 2-Verbalize Understanding, 3- ImproveStrength/Ana 1=Demonstrate adherence to instructed precautions during ADL tasks. 2=Patient will verbalize/demonstrate understanding of assistive devices/ modifications for ADL. 3=Patient will improve strength/tolerance for activity to enable patient to perform ADL's. OT Education/Plan Problem List/Assessment Pt would benefit from skilled OT to increase her independence in basic self care and to decrease caregiver burden Discharge Recommendations Plan/Recommendations: Continue POC Treatment Plan/Plan of Care Patient would benefit from OT for education, treatment and training to promote independence in ADL's, mobility, safety and/or upper extremity function for ADL' s. Plan of Care: ADL Retraining, Functional Mobility, Group Exercise/Act as Ind ( education, exercise, act tolerance, funct activities, mobility), UE Funct Exercise/Act, UE Neuromus Re-Ed/Coord Treatment Duration: Aug 22, 2017 Frequency: At least 5 of 7 days/Wk (IRF) Estimated Hrs Per Day: 1.5 hours per day Agreement: Yes Rehab Potential: Fair Time/GCodes Start Time: 13:00 Stop Time: 13:30 Total Time Billed (hr/min): 30 Billed Treatment Time 1 visit-ADL 2 (30 min) SONIA CROCKETT Aug 04, 2017 13:49
[2017-08-04 18:05] VITALS: BP 119/71
--- NOTE | 2017-08-04 18:58 | PM & R (SOAP) Progress Note ---
Subjective Time Seen by Provider: 18:50 Subjective/Events-last exam Patient was seen in her room this evening Patient min assist for transfers Appreciate Dr Paz note and orders Discussed case with RN Patient with mild nausea this AM -relieved with Zofrmacarena Review of Systems Cardiovascular: Edema Gastrointestinal: Nausea Musculoskeletal: leg pain Objective Exam Last Set of Vital Signs Vital Signs Date Time Temp Pulse Resp B/P (MAP) Pulse Ox O2 Delivery O2 Flow Rate FiO2 08/04/17 08:40 97.3 89 18 127/74 (91) 97 Room Air Capillary Refill : I&O Intake and Output 08/04/17 00:00 Intake Total 1320 ml Output Total 400 ml Balance 920 ml Intake Oral 1320 ml Output Urine Total 400 ml # Voids 3 # Urine Diapers 2 # Bowel Movements 1 General: Alert, Oriented X3, Cooperative, No Acute Distress HEENT: Atraumatic, PERRLA, EOMI, Mucous Memb Moist/[place] Neck: Supple, No JVD Lungs: Clear to Auscultation Heart: Regular Rate, Other (S/P pacemaker) Abdomen: Normal Bowel Sounds, Soft, No Tenderness Extremities: Other (plus edeam RT ankle > left) Neuro: Other (Weakness RT leg functional BUES and LEFT LE) Psych/Mental Status: Mental Status NL Results Lab Laboratory Tests 08/04/17 11:09: White Blood Count 8.2, Red Blood Count 3.11L, Hemoglobin 9.6L, Hematocrit 29L, Mean Corpuscular Volume 94, Mean Corpuscular Hemoglobin 31, Mean Corpuscular Hemoglobin Concent 33, Red Cell Distribution Width 16.2H, Platelet Count 374, Mean Platelet Volume 9.2, Sodium Level 139, Potassium Level 4.8, Chloride Level 109H, Carbon Dioxide Level 19L, Anion Gap 11, Blood Urea Nitrogen 21H, Creatinine 1.36H, Estimat Glomerular Filtration Rate 37, BUN/Creatinine Ratio 15 , Glucose Level 105, Calcium Level 9.0, Total Bilirubin 0.6, Aspartate Amino Transf (AST/SGOT) 27, Alanine Aminotransferase (ALT/SGPT) 18, Alkaline Phosphatase 105, Total Protein 5.9L, Albumin 3.1L Assessment/Plan Assessment Distal RT Femur FRX s/p ORIF OSH NWB RLE Prior RT TKR Postop anemia Postop nausea HTN Renal insufficiency Hypoalbuminemia S/P pacemanker for SSS S/P cardiac ablation Plan Continue PT/OT Team Conference 08-06-17 Venous doppler negative for DVT Pierre stoner for Edema SCDS for DVT Prophylaxis JACQUELINE HORNE MD Aug 04, 2017 18:58
[2017-08-04] MEDS: meTOprolol TARTRATE 25 MG (LOPRESSOR) TABLET PO SCH (20:18)
[2017-08-04] MEDS: MIRTAZAPINE 15 MG (REMERON) TAB PO SCH (20:19)
[2017-08-05] MEDS: PRIMIDONE 250MG (MYSOLINE) TAB PO SCH ×3 (05:14→19:55)
[2017-08-05 05:16] VITALS: BP 108/71
--- NOTE | 2017-08-05 08:12 | PM & R (SOAP) Progress Note ---
Subjective Time Seen by Provider: 07:40 Subjective/Events-last exam Patient was seen in her room this AM Patient Max assist for toilet transfers Review of Systems Cardiovascular: Edema Musculoskeletal: leg pain Objective Exam Last Set of Vital Signs Vital Signs Date Time Temp Pulse Resp B/P (MAP) Pulse Ox O2 Delivery O2 Flow Rate FiO2 08/05/17 05:16 98.8 88 16 108/71 (83) 99 Room Air Capillary Refill : I&O Intake and Output 08/05/17 00:00 Intake Total 1520 ml Balance 1520 ml Intake Oral 1520 ml # Voids 9 # Bowel Movements 1 General: Alert, Oriented X3, Cooperative, No Acute Distress HEENT: Atraumatic, PERRLA, EOMI, Mucous Memb Moist/[place] Neck: Supple, No JVD Lungs: Clear to Auscultation Heart: Regular Rate, Other (S/P pacemaker) Abdomen: Normal Bowel Sounds, Soft, No Tenderness Extremities: Other (plus edeam RT ankle > left) Neuro: Other (Weakness RT leg functional BUES and LEFT LE) Psych/Mental Status: Mental Status NL Results Lab Laboratory Tests 08/04/17 11:09: White Blood Count 8.2, Red Blood Count 3.11L, Hemoglobin 9.6L, Hematocrit 29L, Mean Corpuscular Volume 94, Mean Corpuscular Hemoglobin 31, Mean Corpuscular Hemoglobin Concent 33, Red Cell Distribution Width 16.2H, Platelet Count 374, Mean Platelet Volume 9.2, Sodium Level 139, Potassium Level 4.8, Chloride Level 109H, Carbon Dioxide Level 19L, Anion Gap 11, Blood Urea Nitrogen 21H, Creatinine 1.36H, Estimat Glomerular Filtration Rate 37, BUN/Creatinine Ratio 15 , Glucose Level 105, Calcium Level 9.0, Total Bilirubin 0.6, Aspartate Amino Transf (AST/SGOT) 27, Alanine Aminotransferase (ALT/SGPT) 18, Alkaline Phosphatase 105, Total Protein 5.9L, Albumin 3.1L Assessment/Plan Assessment Distal RT Femur FRX s/p ORIF OSH NWB RLE Prior RT TKR Postop anemia Postop nausea HTN Renal insufficiency Hypoalbuminemia S/P pacemanker for SSS S/P cardiac ablation Plan Continue PT/OT Team Conference tomorrow 08-06-17 Venous doppler negative for DVT Pierre stoner for Edema SCDS for DVT Prophylaxis JACQUELINE HORNE MD Aug 05, 2017 08:12
--- NOTE | 2017-08-05 08:29 | Individualized Plan of Care ---
Individualized Plan of Care Rehab Nursing IPOC Order Admission Date Aug 01, 2017 at 14:25 Current Orders Orders Follow-Up Appointment (08/01/17 11:07) Admission-Acute Rehab Unit (08/01/17 12:17) Vital Signs: Routine 08,16,00 (08/01/17 12:17) Pulmonary Physical Therapist-Inpt Rehab (08/01/17 12:17) Rehab Nursing Orders-Ipoc (08/01/17 12:17) Physical Therapy Rehab Orders (08/01/17 12:17) Occupational Therapy Rehab Ord (08/01/17 12:17) Speech Therapy Rehab Orders (08/01/17 12:17) General/Regular (08/01/17 Dinner) Turn And Reposition Q2HR (08/01/17 12:17) Intake & Output 06,14,22 (08/01/17 12:17) Weight Bearing Status (08/01/17 12:17) Precautions (Aru) (08/01/17 12:17) Weekly Weight (Lbs) WEEK (08/01/17 12:17) Amiodarone Tablet (Cordarone Tablet) (08/02/17 09:00) Aspirin Enteric Coated Tablet (Ecotrin T (08/02/17 09:00) Clonazepam Tablet (Klonopin Tablet) (08/01/17 13:00) Lactobacillus/Bulgaricus Tab (Lactinex (08/01/17 16:00) Diltiazem Tablet (Cardizem Tablet) (08/01/17 21:00) Senna S Tablet (Senokot S Tablet) (08/01/17 21:00) Duloxetine Capsule (Cymbalta Capsule) (08/02/17 09:00) Lisinopril Tablet (Zestril Tablet) (08/02/17 09:00) Hydrochlorothiazide Cap/Tablet (Hctz Cap (08/02/17 09:00) Metoprolol Tartrate (Ir) Tab (Lopressor (08/01/17 21:00) Mirtazapine Tablet (Remeron Tablet) (08/01/17 21:00) Primidone Tablet (Mysoline Tablet) (08/01/17 14:00) Famotidine Tablet (Pepcid Tablet) (08/01/17 12:30) Lactobacillus/Bulgaricus Tab (Lactinex (08/02/17 09:00) Pharmacy Communication (Pharmacy Communi (08/01/17 13:00) Famotidine Tablet (Pepcid Tablet) (08/01/17 13:30) Consult Physician (08/01/17 13:28) Lisinopril Tablet (Zestril Tablet) (08/02/17 09:00) Admission Arrival Bed Request (08/01/17 14:33) Us Venous Lower Ext Rt (08/01/17 15:50) Hydrocodone/Apap 5/325 Tablet (Lortab 5 (08/01/17 16:00) Acetaminophen Tablet (Tylenol Tablet) (08/01/17 16:00) Metoprolol Tartrate (Ir) Tab (Lopressor (08/02/17 09:00) Metoprolol Tartrate (Ir) Tab (Lopressor (08/01/17 21:00) Ambulate TID (08/01/17 18:36) Sequential Compression Device 08,20 (08/01/17 18:36) Dvt/Vte Risk - Notifiy Physici (08/01/17 18:36) Influenza Trivalent [id number] (Afluria (08/01/17 18:45) Patient Visit (08/02/17 ) Exercise Therap, Ea 15 Min (08/02/17 ) Functional Activities, Ea 15 (08/02/17 ) Patient Visit (08/01/17 ) Pt Eval Moderate Complexity (08/01/17 ) Functional Activities, Ea 15 (08/01/17 ) Patient Visit (08/01/17 ) Functional Activities, Ea 15 (08/01/17 ) Cbc No Diff (08/04/17 09:29) Comprehensive Metabolic Panel (08/04/17 09:29) Patient Visit (08/04/17 ) Speech Sound Lang Comp (08/04/17 ) Ondansetron Oral Dissolve Tab (Zofran (08/04/17 10:30) Patient Visit (08/04/17 ) Wheelchair Mgmt/Propulsn 15min (08/04/17 ) Exercise Therap, Ea 15 Min (08/04/17 ) Functional Activities, Ea 15 (08/04/17 ) Pierre Coughlin 09,21 (08/05/17 08:14) Rehab Nursing Orders: Diseage Management, Edu in Press Rel Techn, Hydration Management, Nutrition Management, Pain Management Other Nursing Orders: Monitor for postop constipation and urinary retention PT IPOC Problem List: Activity Tolerance, Functional Strength, Safety, Balance, Gait, Transfer, Bed Mobility, ROM Treatment Plan: Continue Plan of Care Bed Mobility, Concurrent Therapy, Education, Functional Activity Ana, Functional Strength, Group Therapy, Gait, Safety, Therapeutic Exercise, Transfers Treatment Duration: Aug 22, 2017 Frequency: At least 5 of 7 days/Wk (IRF) Estimated Hrs Per Day: 1.5 hours per day OT IPOC Problems: Decreased Activ Tolerance, Decreased UE Strength, Dependent Transfers , Impaired Coordination, Impaired Funct Balance, Impaired Self-Care Skills, Restricted Funct UE ROM OT Treatment, Training and Edu: Yes OT Problems Pt would benefit from skilled OT to increase her independence in basic self care and to decrease caregiver burden Plan of Care: ADL Retraining, Functional Mobility, Group Exercise/Act as Ind ( education, exercise, act tolerance, funct activities, mobility), UE Funct Exercise/Act, UE Neuromus Re-Ed/Coord Treatment Duration: Aug 22, 2017 Frequency: At least 5 of 7 days/Wk (IRF) Estimated Hrs Per Day: 1.[address] IPOC Speech Therapy Treatment Plan: Continue Plan of Care Treatment Duration: Aug 18, 2017 Frequency: Modified Program (IRF) (Four to five times per week.) Estimated Hrs Per Day: .5 hour per day Pulmonary Physical Therapist/Case Mgmt Pulmonary Physical Therapist/Case Managemen: Discharge Planning, Patient/Family Counseling Physician IPOC Medical Issues being managed closely and that require the 24 hour availability of a physician: Postop confusion and anemia Pain management SVT on diltiazam SSS s/p Pacemaker Medical Issues: Bowel/Bladder Function, DVT Prophylaxis, Falls Precautions, Fluid/Electrolyte/Nutrition Balance, Infection Protection, Pain Management, Weight Bearing Precautions, Wound Care, Other (List) (as per above) Brief Synthesis of Preadmission Screen, Post-Admission Evaluation, and Therapy Evaluations:82 yo female s/p fal with resulting distal rt femur frx s/p ORIF OSH NWB RLE Patient had been Modified Independent prior to this with her daughter looking in her daily.PMH Post op confusion Post op anemia Acute renal failure treated with IVFS Medical Prognosis: good Anticipated Length of Stay: 17 days Rehab Goals Modified Independent to supervision for adls and mobility skills at the W/C level due to NWB status RLE Anticipated discharge destinat: Home with helio and C vs JACQUELINE HARRIS MD Aug 05, 2017 08:29
[2017-08-05 09:00] VITALS: BP 121/68
[2017-08-05] MEDS: LACTOBACILLUS Acidoph/Bulgar (LACTINEX/FLORANEX) TAB PO SCH (09:04)
[2017-08-05] MEDS: clonazePAM 0.5 MG (KlonoPIN) TAB PO SCH ×3 (09:04→19:56)
[2017-08-05] MEDS: DILTIAZEM 30 MG (CARDIZEM) TAB PO SCH ×2 (09:05→19:56)
[2017-08-05] MEDS: SENNA W/DOCUSATE (SENOKOT S) TABLET PO SCH ×2 (09:05→19:56)
[2017-08-05] MEDS: DULoxetine 30 MG (CYMBALTA) CAP PO SCH (09:05)
[2017-08-05] MEDS: ASPIRIN E.C. 325 MG (ECOTRIN) TABLET PO SCH (09:05)
[2017-08-05] MEDS: FAMOTIDINE 20 MG (PEPCID) TABLET PO SCH (09:05)
[2017-08-05] MEDS: ACETAMINOPHEN 500 MG TAB (TYLENOL) PO PRN ×3 (09:06→19:10)
[2017-08-05] MEDS: meTOprolol TARTRATE 50 MG (LOPRESSOR) TAB PO SCH (09:08)
--- NOTE | 2017-08-05 10:00 | Physical Therapy Daily Note ---
PT Daily Note-Current Subjective Pt is laying in bed pre tx and c/o pain at 10/10. Nurse gave pt pain pills a few minutes before tx began. Pt agrees to PT. Pain Numeric Pain Scale: 10-Worst Possible Pain Location: Left Location Body Site: Hip Appearance Pt is sitting in [facility] in room post tx with nurse call, remote, and tray within reach. Mental Status Patient Orientation: Person, Place, Situation Knee immobilizer on RLE. Transfers Functional [place] Measure 0=Not Assessed/NA 4=Minimal Assistance 1=Total Assistance 5=Supervision or Setup 2=Maximal Assistance 6=Modified [place] 3=Moderate Assistance 7=Complete IndependenceIRFPAI Quality Coding Scale 6 Independent with activity with or without an assistive device 5 Patient requires set up or clean up by helper. Patient completes activity by themselves 4 Supervision or touching assist (CGA). [place] provide cues , steadying assist 3 The helper provides less than half the effort to complete the activity 2 The helper provides more than half the effort to complete the activity 1 Dependent. The helper does all the effort to complete an activity 7 Patient refused to complete or attempt activity 9 The patient did not perform the activity before the current illness or injury 88 Not attempted due to Medical conditions or safety concerns Transfers (B, C, W/C) (FIM): 2 Scootin Rollin Supine to/from Sit: 4 Sit to/from Stand: 2 Bed to/from Chair: 2 Max A needed for sit to stand and min A for bed mobility. Patient needs cues for positioning and needs a lot of assistance due to weakness. Weight Bearing Right Lower Extremity: Right Non Weight Bearing Left Lower Extremity: Left Full Weight Bearing Gait Training Does the Patient Walk?: No and Walking Goal IS indicated Wheelchair Training Does the Pt Use a Wheelchair?: Yes Wheelchair (FIM): 2 Distance: 50 feet x1 Wheelchair Level of Assist: 4 Type of Wheelchair: Manual Min A required due to UE weakness. Exercises Supine Ex: Heel Slides (10 x2 LLE), Short Arc Quads (10 x2 LLE), Hip abd/add ( 10 x2 LLE) Standing: Sit to Stand (2 x1) Treatments Pt performed bed mobility, functional activity, LE exercises, WCH mobility. Assessment Current Status: Poor Progress Pt continues to need max A for sit to stand and bed to chair transfer. Pt pain decreased from 10/10 to 7/10 during treatment session. Pt utilizes sliding board and requires set up and verbal cues to succeed in task. PT Short Term Goals Short Term Goals Time Frame: Aug 08, 2017 Transfers (B,C,W/C) (FIM): 3 Gait (FIM): 1 Distance (FIM): 7=781-68 ft Gait Distance Comment: 20' Gait Level of Assist: 4 Gait Assistive Device: FWW Wheelchair (FIM): 5 Wheelchair distance (FIM): 9=257-29 ft Wheelchair Distance: 150 feet Wheelchair Level of Assist: 5 PT Nursing Home Goals Plant Operations Manager Goals PT Plant Operations Manager Goals Time Frame: Aug 22, 2017 Transfers (B,C,W/C) (FIM): 5 Sit to Lying (QC): 4 Lying-Sitting on Side/Bed(QC): 4 Sit to Stand (QC): 4 Rollin Roll Left to Right (QC): 4 Chair/Cjv-wj-Ltigg Xfer(QC): 4 Car Transfer (QC): 4 Does the Patient Walk: No and Walking Goal IS indicated Gait (FIM): 2 Distance: 50' Walk 10 feet (QC): 4 Walk 10ft-Uneven Surface(QC): 4 Walk 50ft with 2 Turns (QC): 4 Walk 150 ft (QC): 4 Gait Level of Assist: 5 Gait Assistive Device: FWW Does the Pt use WC or Scooter?: No Stairs (FIM): 2 # of Steps: 4 1 Step (curb) (QC): 4 4 Steps (QC): 4 12 Steps (QC): 88 Stairs Level Of Assist: 4 PT Plan Problem List Problem List: Activity Tolerance, Functional Strength, Safety, Balance, Gait, Transfer, Bed Mobility, ROM Treatment/Plan Treatment Plan: Continue Plan of Care Treatment Plan: Bed Mobility, Concurrent Therapy, Education, Functional Activity Ana, Functional Strength, Group Therapy, Gait, Safety, Therapeutic Exercise, Transfers Treatment Duration: Aug 22, 2017 Frequency: At least 5 of 7 days/Wk (IRF) Estimated Hrs Per Day: 1.5 hours per day Patient and/or Family Agrees t: Yes Safety Risks/Education Patient Education: Transfer Techniques, Reviewed Precautions, Correct Positioning, W/C Management, Safety Issues Teaching Recipient: Patient Teaching Methods: Demonstration, Discussion Response to Teaching: Reinforcement Needed Time/GCodes Time In: 900 Time Out: 1000 Total Billed Treatment Time: 60 Total Billed Treatment 1 visit 20 min FA 25 min EX 15' LISE MENJIVAR PT Aug 05, 2017 10:00
--- NOTE | 2017-08-05 10:16 | Speech Therapy Daily Note ---
Speech Daily Progress Note Subjective Date Seen by Provider: Aug 05, 2017 Time Seen by Provider: 08:30 The patient was laying in bed, eyes closed upon entrance. The patient was roused easily, however, remained significantly fatigued throughout the session. The patient complained of a headache and of a slightly nauseated stomach. Per patient, the RN was aware and was returning to provide medication momentarily. Objective To continue cognitive evaluation, the MoCA was provided with the following results: - Visuospatial/Executive Functioning: The patient stated she was unable to complete writing activities due to her tremors, therefore, these activities were not attempted. - Memory: The patient was unable to recall any of five single words following a five minute delay. - Language: The patient was able to repeat short phrases, however, was unable to repeat word-finding activity or find similarities between two items. - Naming: The patient was able to name two of three black and white images of animals. - Orientation: The patient was oriented to year and day of week. The patient was not oriented to date, location, city, or month. - Attention: The patient was able to complete serial seven subtraction, identification of specific letter in a string of letters, and digit repetition. Overall, the patient demonstrated a result of +14/25 (56%) correlating to a moderate cognitive deficit. Assessment Assessment Current Status: Poor Progress Treatment Plan Continue Plan of Care Communication Comprehension: 4 Expression: 4 Social Cognition Social Interaction: 4 Problem Solvin Memory: 3 Speech Short Term Goals Short Term Goals Short Term Goals 1. The patient will complete a full cognitive evaluation with limited verbal prompting from the clinician. MET (08/05/17) 2. The patient will provide simple orientation information with 90% accuracy independently or with the use of an external aid. 3. The patient will recall two functional memory strategies for use at home. 4. The patient will demonstrate 80% accuracy with safety problem solving with mild clinician verbal cueing. Time Frame-STG: Two Weeks Speech Retirement Goals Retirement Goals 1. The patient will demonstrate improved cognitive linguistic skills for increased function and safety with ADL's. Time Frame: Three Weeks Comprehension: 5 Expression: 5 Social Interaction: 5 Problem Solvin Memory: 4 Speech-Plan Treatment Plan Speech Therapy Treatment Plan: Continue Plan of Care Continue skilled speech pathology to target functional problem solving and memory. Treatment Duration: Aug 18, 2017 Frequency: Modified Program (IRF) (Four to five times per week.) Estimated Hrs Per Day: .5 hour per day Rehab Potential: Fair Safety Risks/Education Teaching Recipient: Patient Teaching Methods: Discussion Response to Teaching: Reinforcement Needed Education Topics Provided: Results, Recommendations, Plan of Care Time Speech Therapy Time In: 08:30 Speech Therapy Time Out: 09:00 Total Billed Time: 30 Billed Treatment Time 1 ELENA OTOOLE Aug 05, 2017 10:16
--- NOTE | 2017-08-05 13:30 | Physical Therapy Daily Note ---
PT Daily Note-Current Subjective Pt is laying in bed in room with pain rated at 7/10 and agrees to PT. Pain Numeric Pain Scale: 7 Location: Right Location Body Site: Hip Appearance Pt is sitting in [facility] post tx in therapy gym, has OT right after PT. Pt needs met. Mental Status Patient Orientation: Person, Place, Situation Attachments: Knee Immobilizer Transfers Functional [place] Measure 0=Not Assessed/NA 4=Minimal Assistance 1=Total Assistance 5=Supervision or Setup 2=Maximal Assistance 6=Modified [place] 3=Moderate Assistance 7=Complete IndependenceIRFPAI Quality Coding Scale 6 Independent with activity with or without an assistive device 5 Patient requires set up or clean up by helper. Patient completes activity by themselves 4 Supervision or touching assist (CGA). [place] provide cues , steadying assist 3 The helper provides less than half the effort to complete the activity 2 The helper provides more than half the effort to complete the activity 1 Dependent. The helper does all the effort to complete an activity 7 Patient refused to complete or attempt activity 9 The patient did not perform the activity before the current illness or injury 88 Not attempted due to Medical conditions or safety concerns Transfers (B, C, W/C) (FIM): 2 Scootin Rollin Supine to/from Sit: 4 Sit to/from Stand: 2 Bed to/from Chair: 2 Pt requires max A during sit to stand and bed to WCH transfer. Verbal cues needed for hand placement and safety. Weight Bearing Right Lower Extremity: Right Non Weight Bearing Left Lower Extremity: Left Full Weight Bearing Gait Training Does the Patient Walk?: No and Walking Goal IS indicated Wheelchair Training Does the Pt Use a Wheelchair?: Yes Wheelchair (FIM): 2 Distance: 100 feet x1 Wheelchair Level of Assist: 4 Type of Wheelchair: Manual Min A needed for steering. Exercises Standing: Sit to Stand (3 x1) Pt stood in parallel x2 for 60 seconds each. Treatments Pt performed bed mobility, WCH mobility, functional activity. Assessment Current Status: Fair Progress Pt was able to stand, after max A sit to stand transfer, for 60 seconds x2 and only holding on with the RUE. Pt requires manual and verbal cues to extend L knee. Pt was able to propel WCH from room to therapy gym, which is 100 feet. PT Short Term Goals Short Term Goals Time Frame: Aug 08, 2017 Transfers (B,C,W/C) (FIM): 3 Gait (FIM): 1 Distance (FIM): 6=554-38 ft Gait Distance Comment: 20' Gait Level of Assist: 4 Gait Assistive Device: FWW Wheelchair (FIM): 5 Wheelchair distance (FIM): 0=088-94 ft Wheelchair Distance: 50 feet x1 Wheelchair Level of Assist: 5 PT Detention Goals Detention Goals PT Senior Peoplesoft Developer Goals Time Frame: Aug 22, 2017 Transfers (B,C,W/C) (FIM): 5 Sit to Lying (QC): 4 Lying-Sitting on Side/Bed(QC): 4 Sit to Stand (QC): 4 Rollin Roll Left to Right (QC): 4 Chair/Gzp-bt-Kjafb Xfer(QC): 4 Car Transfer (QC): 4 Does the Patient Walk: No and Walking Goal IS indicated Gait (FIM): 2 Distance: 50' Walk 10 feet (QC): 4 Walk 10ft-Uneven Surface(QC): 4 Walk 50ft with 2 Turns (QC): 4 Walk 150 ft (QC): 4 Gait Level of Assist: 5 Gait Assistive Device: FWW Does the Pt use WC or Scooter?: No Stairs (FIM): 2 # of Steps: 4 1 Step (curb) (QC): 4 4 Steps (QC): 4 12 Steps (QC): 88 Stairs Level Of Assist: 4 PT Plan Problem List Problem List: Activity Tolerance, Functional Strength, Safety, Balance, Gait, Transfer, Bed Mobility, ROM Treatment/Plan Treatment Plan: Continue Plan of Care Treatment Plan: Bed Mobility, Concurrent Therapy, Education, Functional Activity Ana, Functional Strength, Group Therapy, Gait, Safety, Therapeutic Exercise, Transfers Treatment Duration: Aug 22, 2017 Frequency: At least 5 of 7 days/Wk (IRF) Estimated Hrs Per Day: 1.5 hours per day Patient and/or Family Agrees t: Yes Safety Risks/Education Patient Education: Transfer Techniques, Correct Positioning, W/C Management, Safety Issues Teaching Recipient: Patient Teaching Methods: Demonstration, Discussion Response to Teaching: Reinforcement Needed Time/GCodes Time In: 1300 Time Out: 1330 Total Billed Treatment Time: 30 (30) Total Billed Treatment 1 visit 10 min WC 20 min LISE AVALOS PT Aug 05, 2017 13:30
--- NOTE | 2017-08-05 17:02 | Occupational Ther Daily Note ---
OT Current Status-Daily Note Subjective Pt. reports pain with movement, but does not report pain level. Has already had her pain medication per nursing. Appearance Pt. is up in chair finishing breakfast. Agrees to treatment. Mental Status/Objective Patient Orientation: Person, Place, Time, Situation Functional [place] Measure 0=Not Assessed/NA 4=Minimal Assistance 1=Total Assistance 5=Supervision or Setup 2=Maximal Assistance 6=Modified [place] 3=Moderate Assistance 7=Complete [place] ADL-Treatment Functional [place] Measure 0=Not Assessed/NA 4=Minimal Assistance 1=Total Assistance 5=Supervision or Setup 2=Maximal Assistance 6=Modified [place] 3=Moderate Assistance 7=Complete IndependenceIRFPAI Quality Coding Scale 6 Independent with activity with or without an assistive device 5 Patient requires set up or clean up by helper. Patient completes activity by themselves 4 Supervision or touching assist (CGA). [place] provide cues , steadying assist 3 The helper provides less than half the effort to complete the activity 2 The helper provides more than half the effort to complete the activity 1 Dependent. The helper does all the effort to complete an activity 7 Patient refused to complete or attempt activity 9 The patient did not perform the activity before the current illness or injury 88 Not attempted due to Medical conditions or safety concerns Eating (FIM): 5 (set up with packages.) Eating (QC): 5 Grooming (FIM): 5 (set up to brush hair.) Bathing (FIM): 2 (Pt. requires assist to wash lisa areas and LE. Pt. is able to wash all other parts, but still requires cues to lean forward and assist for OT to wash her back.) Shower/Bathe Self (QC): 2 Upper Body (FIM): 4 (Min assist to fully pull down shirt.) Upper Body Dressing (QC): 4 Lower Body Dressing (FIM): 1 (Pt. attempts to put on pants, but is unable to do so. Requires dependent assist for brief and socks as well, as well as leg brace.) Lower Body Dressing (QC): 1 On/Off Footwear (QC): 1 Toileting (FIM): 1 (Max/Dependent assist to stand while another person fully cleanses and pulls up pants.) Toileting Hygiene (QC): 1 Transfers (B, C, W/C) (FIM): 1 (Please see note.) Toilet/Commode Transfer (FIM): 1 Toilet Transfer (QC): 1 Other Treatment Pt. up in wheelchair. Requests to use BSC. OT places it. OT assist with sit- stand. However, due to NWB precautions on right LE, pt. is unable to assist much and OT completes dependent stand pivot to commode. Pt. is able to assist with bathing while up on BSC, but OT does most of this for her. OT also assists with dressing tasks, as this is difficult for pt. OT positions BSC by bed, and pt. requires assist of two to stand and pull pants up, and transfer to bed. Note that pt. is significantly weak in all areas. Max assist for sit- supine. All needs met and pt. positioned. Education OT Patient Education: Correct positioning, Modified ADL techniques, Progress toward Goal/Update tx plan, Purpose of tx/functional activities, Reviewed precautions, Rehab process, Transfer techniques Teaching Recipient: Patient Teaching Methods: Demonstration, Discussion Response to Teaching: Verbalize Understanding, Return Demonstration OT Short Term Goals Short Term Goals Time Frame: Aug 15, 2017 Bathing(FIM): 4 Lower Body Dressing(FIM): 3 Toileting(FIM): 3 Transfers (B,C,W/C) (FIM): 3 Toilet/Commode Transfer(FIM): 3 Additional Short Term Goals: 1-Demonstrate ADL Tasks, 2-Verbalize Understanding , 3-ImproveStrength/Ana 1=Demonstrate adherence to instructed precautions during ADL tasks. 2=Patient will verbalize/demonstrate understanding of assistive devices/ modifications for ADL. 3=Patient will improve strength/tolerance for activity to enable patient to perform ADL's. OT Emergency Generator Mechanic Goals Emergency Generator Mechanic Goals Time Frame: Aug 22, 2017 Eating (FIM): 6 Eating (QC): 6 Groomin Oral Hygiene (QC): 6 Bathing(FIM): 5 Shower/Bathe Self (QC): 5 Upper Body Dressing(FIM): 5 Upper Body Dressing (QC): 5 Lower Body Dressing(FIM): 5 Lower Body Dressing (QC): 5 On/Off Footwear (QC): 5 Toileting(FIM): 5 Toileting Hygiene (QC): 5 Toilet/Commode Transfer(FIM): 5 Toilet/Commode Transfer (QC): 5 Shower Transfer(FIM): 5 Comprehension(FIM): 5 Expression (FIM): 5 Social Interaction(FIM): 5 Problem Solving(FIM): 4 Memory(FIM): 4 Additional Goals: 1-Demonstrate ADL Tasks, 2-Verbalize Understanding, 3- ImproveStrength/Ana 1=Demonstrate adherence to instructed precautions during ADL tasks. 2=Patient will verbalize/demonstrate understanding of assistive devices/ modifications for ADL. 3=Patient will improve strength/tolerance for activity to enable patient to perform ADL's. OT Education/Plan Problem List/Assessment Assessment: Decreased Activ Tolerance, Decreased UE Strength, Dependent Transfers, Impaired Bed Mobility, Impaired Coordination, Impaired Funct Balance , Impaired I ADL's, Impaired Self-Care Skills, Restricted Funct UE ROM Pt would benefit from skilled OT to increase her independence in basic self care and to decrease caregiver burden Discharge Recommendations Plan/Recommendations: Continue POC Therapy D/C Recommendations: 24 hr Supervision Treatment Plan/Plan of Care Treatment,Training & Education: Yes Patient would benefit from OT for education, treatment and training to promote independence in ADL's, mobility, safety and/or upper extremity function for ADL' s. Plan of Care: ADL Retraining, Functional Mobility, Group Exercise/Act as Ind ( education, exercise, act tolerance, funct activities, mobility), UE Funct Exercise/Act, UE Neuromus Re-Ed/Coord Treatment Duration: Aug 22, 2017 Frequency: At least 5 of 7 days/Wk (IRF) Estimated Hrs Per Day: 1.5 hours per day Agreement: Yes Rehab Potential: Fair Time/GCodes Start Time: 10:15 Stop Time: 11:00 Total Time Billed (hr/min): 45 Billed Treatment Time 1, ADL x 3 JAMIL MONTOYA OT Aug 05, 2017 17:02
--- NOTE | 2017-08-05 17:10 | Occupational Ther Daily Note ---
OT Current Status-Daily Note Subjective Pt. does not report pain, but reports that she has a headache. Appearance Pt. is up in chair in gym. Agrees to treatment. Mental Status/Objective Patient Orientation: Unable to Assess Functional [place] Measure 0=Not Assessed/NA 4=Minimal Assistance 1=Total Assistance 5=Supervision or Setup 2=Maximal Assistance 6=Modified [place] 3=Moderate Assistance 7=Complete [place] ADL-Treatment Functional [place] Measure 0=Not Assessed/NA 4=Minimal Assistance 1=Total Assistance 5=Supervision or Setup 2=Maximal Assistance 6=Modified [place] 3=Moderate Assistance 7=Complete IndependenceIRFPAI Quality Coding Scale 6 Independent with activity with or without an assistive device 5 Patient requires set up or clean up by helper. Patient completes activity by themselves 4 Supervision or touching assist (CGA). [place] provide cues , steadying assist 3 The helper provides less than half the effort to complete the activity 2 The helper provides more than half the effort to complete the activity 1 Dependent. The helper does all the effort to complete an activity 7 Patient refused to complete or attempt activity 9 The patient did not perform the activity before the current illness or injury 88 Not attempted due to Medical conditions or safety concerns Lower Body Dressing (FIM): 2 (OT introduced LE equipment and educated pt. on using this. Pt. attempted, but had great difficulty. Utilized dressing stick and sock aide.) Lower Body Dressing (QC): 2 On/Off Footwear (QC): 2 Toileting (FIM): 1 Toileting Hygiene (QC): 1 Transfers (B, C, W/C) (FIM): 1 (Dependent sit-stand and pivot to BSC.) Toilet/Commode Transfer (FIM): 1 Toilet Transfer (QC): 1 Other Treatment Pt. reports that her brace is "on sideways." OT checks this, but it is noted that pt. has her right LE internally rotated. Consulted PT, who came and looked at leg as well. It is noted that pt. is weak, and is unable to externally rotate leg. Educated her that the brace is adjusted to her knee in the position that she is holding it, not the other way around. OT doffed brace and re-applied. However, due to her having her leg internally rotated, knee brace looks rotated as well. Pt. is educated on importance of increasing strength. Completed 3 bilateral UE exercises with yellow theraband x 10 reps each. Required increased time as pt. is very slow. Pt. requires assist to open packages when food comes, and declines ordering her own food. Does not seem to initiate her own care, and requires encouragement to do for herself. When nursing came to give medication, pt. waited for nursing to put water to her lips instead of reaching for water glass herself. Will continue to address strength issues. Education OT Patient Education: Correct positioning, Exercise program, Instructions don/ doff splint/brace, Modified ADL techniques, Progress toward Goal/Update tx plan , Purpose of tx/functional activities, Reviewed precautions, Rehab process, Transfer techniques, Use of adapted equipment Teaching Recipient: Patient Teaching Methods: Demonstration, Discussion Response to Teaching: Verbalize Understanding, Return Demonstration OT Short Term Goals Short Term Goals Time Frame: Aug 15, 2017 Bathing(FIM): 4 Lower Body Dressing(FIM): 3 Toileting(FIM): 3 Transfers (B,C,W/C) (FIM): 3 Toilet/Commode Transfer(FIM): 3 Additional Short Term Goals: 1-Demonstrate ADL Tasks, 2-Verbalize Understanding , 3-ImproveStrength/Ana 1=Demonstrate adherence to instructed precautions during ADL tasks. 2=Patient will verbalize/demonstrate understanding of assistive devices/ modifications for ADL. 3=Patient will improve strength/tolerance for activity to enable patient to perform ADL's. OT Nursing Home Goals Hospice Care Transitions Coordinator Goals Time Frame: Aug 22, 2017 Eating (FIM): 6 Eating (QC): 6 Groomin Oral Hygiene (QC): 6 Bathing(FIM): 5 Shower/Bathe Self (QC): 5 Upper Body Dressing(FIM): 5 Upper Body Dressing (QC): 5 Lower Body Dressing(FIM): 5 Lower Body Dressing (QC): 5 On/Off Footwear (QC): 5 Toileting(FIM): 5 Toileting Hygiene (QC): 5 Toilet/Commode Transfer(FIM): 5 Toilet/Commode Transfer (QC): 5 Shower Transfer(FIM): 5 Comprehension(FIM): 5 Expression (FIM): 5 Social Interaction(FIM): 5 Problem Solving(FIM): 4 Memory(FIM): 4 Additional Goals: 1-Demonstrate ADL Tasks, 2-Verbalize Understanding, 3- ImproveStrength/Ana 1=Demonstrate adherence to instructed precautions during ADL tasks. 2=Patient will verbalize/demonstrate understanding of assistive devices/ modifications for ADL. 3=Patient will improve strength/tolerance for activity to enable patient to perform ADL's. OT Education/Plan Problem List/Assessment Assessment: Decreased Activ Tolerance, Decreased UE Strength, Dependent Transfers, Impaired Bed Mobility, Impaired Funct Balance, Impaired I ADL's, Impaired Self-Care Skills, Restricted Funct UE ROM Pt would benefit from skilled OT to increase her independence in basic self care and to decrease caregiver burden Discharge Recommendations Plan/Recommendations: Continue POC Therapy D/C Recommendations: 24 hr Supervision Treatment Plan/Plan of Care Treatment,Training & Education: Yes Patient would benefit from OT for education, treatment and training to promote independence in ADL's, mobility, safety and/or upper extremity function for ADL' s. Plan of Care: ADL Retraining, Functional Mobility, Group Exercise/Act as Ind ( education, exercise, act tolerance, funct activities, mobility), UE Funct Exercise/Act, UE Neuromus Re-Ed/Coord Treatment Duration: Aug 22, 2017 Frequency: At least 5 of 7 days/Wk (IRF) Estimated Hrs Per Day: 1.5 hours per day Agreement: Yes Rehab Potential: Fair Time/GCodes Start Time: 13:30 Stop Time: 14:15 Total Time Billed (hr/min): 45 Billed Treatment Time 1, EX x 15minutes, FA x 15minutes, ADL x 15minutes JAMIL MONTOYA OT Aug 05, 2017 17:10
[2017-08-05 18:03] VITALS: BP 142/93
[2017-08-05] MEDS ORDERED: FAMOTIDINE 20 MG (PEPCID) TABLET ONE (19:51)
[2017-08-05] MEDS: meTOprolol TARTRATE 25 MG (LOPRESSOR) TABLET PO SCH (19:55)
[2017-08-05] MEDS: MIRTAZAPINE 15 MG (REMERON) TAB PO SCH (19:56)
[2017-08-06] MEDS: ACETAMINOPHEN 500 MG TAB (TYLENOL) PO PRN ×2 (04:58→18:21)
[2017-08-06] MEDS: PRIMIDONE 250MG (MYSOLINE) TAB PO SCH ×3 (04:58→21:11)
[2017-08-06 05:38] VITALS: BP 104/61
--- NOTE | 2017-08-06 07:51 | PM & R (SOAP) Progress Note ---
Subjective Time Seen by Provider: 07:30 Subjective/Events-last exam Patient was seen in her room this AM Patient c/o nausea again Zofran offered Current meds reviewed,Will check U/A Review of Systems Gastrointestinal: Nausea Objective Exam Last Set of Vital Signs Vital Signs Date Time Temp Pulse Resp B/P (MAP) Pulse Ox O2 Delivery O2 Flow Rate FiO2 08/06/17 05:38 98.0 78 17 104/61 (75) 100 Room Air Capillary Refill : I&O Intake and Output 08/06/17 00:00 Intake Total 1230 ml Balance 1230 ml Intake Oral 1230 ml # Voids 7 General: Alert, Oriented X3, Cooperative, No Acute Distress HEENT: Atraumatic, PERRLA, EOMI, Mucous Memb Moist/[place] Neck: Supple, No JVD Lungs: Clear to Auscultation Heart: Regular Rate, Other (S/P pacemaker) Abdomen: Normal Bowel Sounds, Soft, No Tenderness Extremities: Other (plus edeam RT ankle > left) Neuro: Other (Weakness RT leg functional BUES and LEFT LE) Psych/Mental Status: Mental Status NL Results Lab Laboratory Tests 08/04/17 11:09: White Blood Count 8.2, Red Blood Count 3.11L, Hemoglobin 9.6L, Hematocrit 29L, Mean Corpuscular Volume 94, Mean Corpuscular Hemoglobin 31, Mean Corpuscular Hemoglobin Concent 33, Red Cell Distribution Width 16.2H, Platelet Count 374, Mean Platelet Volume 9.2, Sodium Level 139, Potassium Level 4.8, Chloride Level 109H, Carbon Dioxide Level 19L, Anion Gap 11, Blood Urea Nitrogen 21H, Creatinine 1.36H, Estimat Glomerular Filtration Rate 37, BUN/Creatinine Ratio 15 , Glucose Level 105, Calcium Level 9.0, Total Bilirubin 0.6, Aspartate Amino Transf (AST/SGOT) 27, Alanine Aminotransferase (ALT/SGPT) 18, Alkaline Phosphatase 105, Total Protein 5.9L, Albumin 3.1L Assessment/Plan Assessment Distal RT Femur FRX s/p ORIF OSH NWB RLE Prior RT TKR Postop anemia Postop nausea HTN Renal insufficiency Hypoalbuminemia S/P pacemanker for SSS S/P cardiac ablation Plan Continue PT/OT Team Conference later today-see report for full functional update and POC and ELOS Venous doppler negative for DVT Pierre stoner for Edema SCDS for DVT Prophylaxis F/U re recurrent nausea. JACQUELINE HORNE MD Aug 06, 2017 07:50
[2017-08-06] MEDS: LACTOBACILLUS Acidoph/Bulgar (LACTINEX/FLORANEX) TAB PO SCH (07:58)
[2017-08-06] MEDS: ASPIRIN E.C. 325 MG (ECOTRIN) TABLET PO SCH (07:58)
[2017-08-06] MEDS: ONDANSETRON 4 MG (ZOFRAN) ORAL DISSOLVE TAB PO PRN (07:58)
[2017-08-06] MEDS: DILTIAZEM 30 MG (CARDIZEM) TAB PO SCH ×2 (07:58→20:05)
[2017-08-06] MEDS: PANTOPRAZOLE 20 MG TABLET (PROTONIX) PO SCH ×2 (07:58→15:57)
[2017-08-06] MEDS: SENNA W/DOCUSATE (SENOKOT S) TABLET PO SCH ×2 (07:58→20:05)
[2017-08-06] MEDS: clonazePAM 0.5 MG (KlonoPIN) TAB PO SCH ×3 (07:59→20:05)
[2017-08-06] MEDS: meTOprolol TARTRATE 50 MG (LOPRESSOR) TAB PO SCH (07:59)
[2017-08-06] MEDS: DULoxetine 30 MG (CYMBALTA) CAP PO SCH (07:59)
[2017-08-06] MEDS: FAMOTIDINE 20 MG (PEPCID) TABLET PO SCH (07:59)
--- NOTE | 2017-08-06 10:22 | Speech Therapy Daily Note ---
Speech Daily Progress Note Subjective Date Seen by Provider: Aug 06, 2017 Time Seen by Provider: 08:30 The patient was laying in bed, eyes closed and lights off, upon entrance. The patient was roused with gentle verbal prompts, however, continued to re-close eyes and speak in a soft, weak vocal quality. The clinician turned additional lights on in attempts to improve alertness and participation. Maximum verbal cueing was required for limited participation by the patient. The patient again reported nausea. The patient's RN was notified, who stated the patient recently received medication. The patient forgot she received her medication, asking the clinician several times through the session, "Now did I get my medication?" Objective Telling Time: The patient was asked to tell time on an analog clock. With maximum clinician cuing, the patient demonstrated 60% accuracy with frequent "rest breaks" and pauses. Self-Awareness: Due to the patient's reduced participation, the clinician discussed her goals for her stay in rehab. Per patient, "I want to get stronger and get back to what I was doing." The clinician asked the patient how she wished to accomplish this goal and she stated, "well you guys are working with me." At this time, the patient participates minimally in treatment and demonstrates significant weakness. The patient appears unaware of this observation. Assessment Assessment Current Status: Poor Progress Treatment Plan Continue Plan of Care Communication Comprehension: 3 Expression: 3 Social Cognition Social Interaction: 3 Problem Solvin Memory: 3 Speech Short Term Goals Short Term Goals Short Term Goals 1. The patient will complete a full cognitive evaluation with limited verbal prompting from the clinician. MET (08/05/17) 2. The patient will provide simple orientation information with 90% accuracy independently or with the use of an external aid. 3. The patient will recall two functional memory strategies for use at home. 4. The patient will demonstrate 80% accuracy with safety problem solving with mild clinician verbal cueing. Time Frame-STG: Two Weeks Speech Snf Goals Snf Goals 1. The patient will demonstrate improved cognitive linguistic skills for increased function and safety with ADL's. Time Frame: Three Weeks Comprehension: 5 Expression: 5 Social Interaction: 5 Problem Solvin Memory: 4 Speech-Plan Treatment Plan Speech Therapy Treatment Plan: Continue Plan of Care Continue skilled speech pathology to target functional communication and problem solving. Treatment Duration: Aug 18, 2017 Frequency: Modified Program (IRF) (Four to five times per week.) Estimated Hrs Per Day: .5 hour per day Rehab Potential: Fair Safety Risks/Education Teaching Recipient: Patient Teaching Methods: Discussion Response to Teaching: Verbalize Understanding Education Topics Provided: Necessity of Participation, Goals of Therapy Time Speech Therapy Time In: 08:30 Speech Therapy Time Out: 09:00 Total Billed Time: 30 Billed Treatment Time 1, ELENA OTOOLE Aug 06, 2017 10:22
--- NOTE | 2017-08-06 10:39 | Progress Note-Hospitalist ---
Progress Note HPI/CC on Admission CC: Medical management following right hip fracture HPI: This is an 82-year-old white female clinic patient of Dr. Smith at [facility] who also sees [facility] in [place] who presents to inpatient rehabilitation to recover from right hip fracture. Since she has been here she is been placed on bowel regimen due to constipation and had a right lower extremity ultrasound to rule out DVT due to the significant edema but that was negative for thrombosis. She has been restarted on all of her home medication except for blood pressure medicine since she has been slightly hypotensive. Her family has no concerns at this time and patient appears to be comfortable. Progress Notes/Assess & Plan Date Seen 08/06/17 Time Seen by Provider: 10:30 Admission Dx/Process Assessment: Severe debility following right hip fracture status post uncomplicated repair Postop anemia requiring transfusion History of acute renal failure due to dehydration Sick sinus syndrome requiring permanent pacemaker managed by Dr. Sreafin Sarmiento Hypertension Diagonsis/Assessment & Plan Pt Interview: Pt states she is not well and wakes up sick. Pt denies having taken medication for GI issues at home. I informed the pt that I will discuss switching the timing of her medication with her RN so that she can take it earlier. Pt states she may need to eat with the medication as she does at home. Physical exam stable. Lung sound perfect Pt confirms having BMs Patient appears to have chronic somatic issues and unsure how much we can improve upon while hospitalized No fever, vital signs stable Frail, thin, debilitated, depressed Irregular rhythm noted Clear to auscultation bilaterally No edema Assessment: Severe debility following right hip fracture status post uncomplicated repair Postop anemia requiring transfusion History of acute renal failure due to dehydration Sick sinus syndrome requiring permanent pacemaker managed by Dr. Serafin Sarmiento Hypertension Nausea recurrent? Plan: Bowel regimen Home meds Monitor blood pressure Rehabilitation Look into timing of medication administration? ZEUS FREEMAN DO Aug 06, 2017 10:39
--- NOTE | 2017-08-06 12:08 | Physical Therapy Daily Note ---
PT Daily Note-Current Subjective Pt is laying in bed in room pre tx with c/o pain at 10/10 in right knee. Pt has no signs of distress. Pt agrees to PT. Appearance Pt is sitting in recliner in room post tx with legs elevated and nurse call, phone, and tray within reach. Mental Status Patient Orientation: Person, Place, Situation Attachments: Knee Immobilizer Transfers Functional [place] Measure 0=Not Assessed/NA 4=Minimal Assistance 1=Total Assistance 5=Supervision or Setup 2=Maximal Assistance 6=Modified [place] 3=Moderate Assistance 7=Complete IndependenceIRFPAI Quality Coding Scale 6 Independent with activity with or without an assistive device 5 Patient requires set up or clean up by helper. Patient completes activity by themselves 4 Supervision or touching assist (CGA). [place] provide cues , steadying assist 3 The helper provides less than half the effort to complete the activity 2 The helper provides more than half the effort to complete the activity 1 Dependent. The helper does all the effort to complete an activity 7 Patient refused to complete or attempt activity 9 The patient did not perform the activity before the current illness or injury 88 Not attempted due to Medical conditions or safety concerns Transfers (B, C, W/C) (FIM): 2 Scootin Rollin Supine to/from Sit: 4 Sit to/from Stand: 2 Bed to/from Chair: 2 Pt requires max A for sit to stand and bed to chair transfer. Pt requires mod A for most other transfers. Verbal and manual cues required for safety. Weight Bearing Right Lower Extremity: Right Non Weight Bearing Left Lower Extremity: Left Full Weight Bearing Gait Training Does the Patient Walk?: No and Walking Goal IS indicated Wheelchair Training Does the Pt Use a Wheelchair?: Yes Wheelchair (FIM): 2 Distance: 100 feet x1 Wheelchair Level of Assist: 4 Type of Wheelchair: Manual Exercises Standing: Sit to Stand (5 x5 from differing heights) Sitting: Leaning side to side and forward and backward 15 x2 to work on trunk strengthening and sitting limits of stability Treatments Pt performed bed mobility, [facility] mobility, functional activity. Assessment Pt leans mostly through the arms during sit to stand at differing heights. Pt c/ o increase pain at R knee and back after exercises. Pt requires many manual and verbal cues to stand and extend the L hip and knee. Patient has profound weakness and has a lot of difficulty performing simple activities that she should be able to perform easily with three good limbs, like scooting forward or sideways in bed for example. She seems to try to maintain her weight bearing status but may be too weak to be always compliant. PT Short Term Goals Short Term Goals Time Frame: Aug 08, 2017 Transfers (B,C,W/C) (FIM): 3 Gait (FIM): 1 Distance (FIM): 8=081-81 ft Gait Distance Comment: 20' Gait Level of Assist: 4 Gait Assistive Device: FWW Wheelchair (FIM): 5 Wheelchair distance (FIM): 1=517-62 ft Wheelchair Distance: 100 feet x1 Wheelchair Level of Assist: 5 PT Long-Term Goals Long-Term Goals PT Long-Term Goals Time Frame: Aug 22, 2017 Transfers (B,C,W/C) (FIM): 5 Sit to Lying (QC): 4 Lying-Sitting on Side/Bed(QC): 4 Sit to Stand (QC): 4 Rollin Roll Left to Right (QC): 4 Chair/Wjk-ft-[place] Xfer(QC): 4 Car Transfer (QC): 4 Does the Patient Walk: No and Walking Goal IS indicated Gait (FIM): 2 Distance: 50' Walk 10 feet (QC): 4 Walk 10ft-Uneven Surface(QC): 4 Walk 50ft with 2 Turns (QC): 4 Walk 150 ft (QC): 4 Gait Level of Assist: 5 Gait Assistive Device: FWW Does the Pt use WC or Scooter?: No Stairs (FIM): 2 # of Steps: 4 1 Step (curb) (QC): 4 4 Steps (QC): 4 12 Steps (QC): 88 Stairs Level Of Assist: 4 PT Plan Problem List Problem List: Activity Tolerance, Functional Strength, Safety, Balance, Gait, Transfer, Bed Mobility, ROM Treatment/Plan Treatment Plan: Continue Plan of Care Treatment Plan: Bed Mobility, Concurrent Therapy, Education, Functional Activity Ana, Functional Strength, Group Therapy, Gait, Safety, Therapeutic Exercise, Transfers Treatment Duration: Aug 22, 2017 Frequency: At least 5 of 7 days/Wk (IRF) Estimated Hrs Per Day: 1.5 hours per day Patient and/or Family Agrees t: Yes Safety Risks/Education Patient Education: Transfer Techniques, Reviewed Precautions, Correct Positioning, W/C Management, Safety Issues Teaching Recipient: Patient Teaching Methods: Demonstration, Discussion Response to Teaching: Reinforcement Needed Time/GCodes Time In: 1100 Time Out: 1200 Total Billed Treatment Time: 60 Total Billed Treatment 1 visit 45 min FA 15 min LISE MENJIVAR PT Aug 06, 2017 12:08
--- NOTE | 2017-08-06 13:17 | Occupational Ther Daily Note ---
OT Current Status-Daily Note Subjective Pt. states that she needs "something" but can't state if she is nauseated or if she is in pain. Appearance Pt. in bed. Requires cues for encouragement. Mental Status/Objective Patient Orientation: Person Functional [place] Measure 0=Not Assessed/NA 4=Minimal Assistance 1=Total Assistance 5=Supervision or Setup 2=Maximal Assistance 6=Modified [place] 3=Moderate Assistance 7=Complete [place] ADL-Treatment Functional [place] Measure 0=Not Assessed/NA 4=Minimal Assistance 1=Total Assistance 5=Supervision or Setup 2=Maximal Assistance 6=Modified [place] 3=Moderate Assistance 7=Complete IndependenceIRFPAI Quality Coding Scale 6 Independent with activity with or without an assistive device 5 Patient requires set up or clean up by helper. Patient completes activity by themselves 4 Supervision or touching assist (CGA). [place] provide cues , steadying assist 3 The helper provides less than half the effort to complete the activity 2 The helper provides more than half the effort to complete the activity 1 Dependent. The helper does all the effort to complete an activity 7 Patient refused to complete or attempt activity 9 The patient did not perform the activity before the current illness or injury 88 Not attempted due to Medical conditions or safety concerns Bathing (FIM): 2 (Max assist to wash rear lisa area and bilateral LE. Cues to wash chest.) Shower/Bathe Self (QC): 2 Upper Body (FIM): 4 (Min assist and cues to pull down shirt.) Upper Body Dressing (QC): 4 Lower Body Dressing (FIM): 1 (Pt. attempts to use AE, but is not very motivated to do for self. Overall, requires dependent assist to don socks and pants, depend.) Lower Body Dressing (QC): 1 On/Off Footwear (QC): 1 Toileting (FIM): 1 (Max assist x 2 to toilet self.) Toileting Hygiene (QC): 1 Transfers (B, C, W/C) (FIM): 1 (Max assist x 2.) Toilet/Commode Transfer (FIM): 1 Toilet Transfer (QC): 1 Other Treatment Pt. is somewhat lethargic. Requires cues and encouragement. Does not initiate tasks. Pt. was asked if she had a back up plan. Pt. states that she has a "lady" that will come and stay with her. Education OT Patient Education: Correct positioning, Modified ADL techniques, Progress toward Goal/Update tx plan, Purpose of tx/functional activities, Reviewed precautions, Rehab process, Transfer techniques Teaching Recipient: Patient Teaching Methods: Demonstration, Discussion Response to Teaching: Verbalize Understanding, Return Demonstration OT Short Term Goals Short Term Goals Time Frame: Aug 15, 2017 Bathing(FIM): 4 Lower Body Dressing(FIM): 3 Toileting(FIM): 3 Transfers (B,C,W/C) (FIM): 3 Toilet/Commode Transfer(FIM): 3 Additional Short Term Goals: 1-Demonstrate ADL Tasks, 2-Verbalize Understanding , 3-ImproveStrength/Ana 1=Demonstrate adherence to instructed precautions during ADL tasks. 2=Patient will verbalize/demonstrate understanding of assistive devices/ modifications for ADL. 3=Patient will improve strength/tolerance for activity to enable patient to perform ADL's. OT Plastics Design Engineer Goals Residential Goals Time Frame: Aug 22, 2017 Eating (FIM): 6 Eating (QC): 6 Groomin Oral Hygiene (QC): 6 Bathing(FIM): 5 Shower/Bathe Self (QC): 5 Upper Body Dressing(FIM): 5 Upper Body Dressing (QC): 5 Lower Body Dressing(FIM): 5 Lower Body Dressing (QC): 5 On/Off Footwear (QC): 5 Toileting(FIM): 5 Toileting Hygiene (QC): 5 Toilet/Commode Transfer(FIM): 5 Toilet/Commode Transfer (QC): 5 Shower Transfer(FIM): 5 Comprehension(FIM): 5 Expression (FIM): 5 Social Interaction(FIM): 5 Problem Solving(FIM): 4 Memory(FIM): 4 Additional Goals: 1-Demonstrate ADL Tasks, 2-Verbalize Understanding, 3- ImproveStrength/Ana 1=Demonstrate adherence to instructed precautions during ADL tasks. 2=Patient will verbalize/demonstrate understanding of assistive devices/ modifications for ADL. 3=Patient will improve strength/tolerance for activity to enable patient to perform ADL's. OT Education/Plan Problem List/Assessment Assessment: Decreased Activ Tolerance, Decreased UE Strength, Dependent Transfers, Impaired Bed Mobility, Impaired Cognition, Impaired Funct Balance, Impaired I ADL's, Impaired Self-Care Skills Pt would benefit from skilled OT to increase her independence in basic self care and to decrease caregiver burden Discharge Recommendations Plan/Recommendations: Continue POC Therapy D/C Recommendations: 24 hr Supervision Treatment Plan/Plan of Care Treatment,Training & Education: Yes Patient would benefit from OT for education, treatment and training to promote independence in ADL's, mobility, safety and/or upper extremity function for ADL' s. Plan of Care: ADL Retraining, Functional Mobility, Group Exercise/Act as Ind ( education, exercise, act tolerance, funct activities, mobility), UE Funct Exercise/Act, UE Neuromus Re-Ed/Coord Treatment Duration: Aug 22, 2017 Frequency: At least 5 of 7 days/Wk (IRF) Estimated Hrs Per Day: 1.5 hours per day Agreement: Yes Rehab Potential: Fair Time/GCodes Start Time: 09:00 Stop Time: 10:00 Total Time Billed (hr/min): 60 Billed Treatment Time 1, ADL x 4 JAMIL MONTOYA OT Aug 06, 2017 13:17
--- NOTE | 2017-08-06 14:58 | Therapy Group Daily Note ---
Therapy Daily Group Note Patient Education Topic Other List Below (Relaxation Strategies) Exercises LE Seated Exercise, UE Exercise Other/Notes Pt was propelled to PT/Ot Group via [facility]. PT/OT Group consisted of Introductions (Name, Where you are from & What relaxes you), Socialization, ARU Description & Expectations, Patient led UE & LE Exercises and Relaxation Strategies. Pt participated in Group today by not only leading a couple of Exercises but was able to cite personal relaxation strategies that the pt uses when needed. Pt returned to room via [facility] to rest. Pt transfers at Max A from [facility] to [facility] to use before going back to bed at the end of Group with all needs met. Start Time: 13:00 Stop Time: 14:30 Total Billed Treatment Time: 90 Total Billed Treatment 1, Group (90m) SHERITA JAY HOGSHEAD DUMPER Aug 06, 2017 14:58
[2017-08-06 18:23] VITALS: BP 128/79
[2017-08-06] MEDS: meTOprolol TARTRATE 25 MG (LOPRESSOR) TABLET PO SCH (20:05)
[2017-08-06] MEDS: MIRTAZAPINE 15 MG (REMERON) TAB PO SCH (20:05)
[2017-08-07 02:00] VITALS: BP 95/62
[2017-08-07] MEDS: ACETAMINOPHEN 500 MG TAB (TYLENOL) PO PRN (04:49)
[2017-08-07] MEDS: PRIMIDONE 250MG (MYSOLINE) TAB PO SCH ×3 (06:18→21:06)
[2017-08-07] MEDS: PANTOPRAZOLE 20 MG TABLET (PROTONIX) PO SCH ×2 (06:18→16:05)
[2017-08-07 08:01] VITALS: BP 113/67
[2017-08-07] MEDS: ASPIRIN E.C. 325 MG (ECOTRIN) TABLET PO SCH (08:01)
[2017-08-07] MEDS: SENNA W/DOCUSATE (SENOKOT S) TABLET PO SCH ×2 (08:01→21:06)
[2017-08-07] MEDS: LACTOBACILLUS Acidoph/Bulgar (LACTINEX/FLORANEX) TAB PO SCH (08:01)
[2017-08-07] MEDS: DILTIAZEM 30 MG (CARDIZEM) TAB PO SCH ×2 (08:01→21:07)
[2017-08-07] MEDS: DULoxetine 30 MG (CYMBALTA) CAP PO SCH (08:01)
[2017-08-07] MEDS: clonazePAM 0.5 MG (KlonoPIN) TAB PO SCH ×3 (08:01→21:06)
[2017-08-07] MEDS: meTOprolol TARTRATE 50 MG (LOPRESSOR) TAB PO SCH (08:01)
[2017-08-07] MEDS: FAMOTIDINE 20 MG (PEPCID) TABLET PO SCH (08:01)
--- NOTE | 2017-08-07 08:47 | PM & R (SOAP) Progress Note ---
Subjective Time Seen by Provider: 07:55 Subjective/Events-last exam Patient was seen in her room this AM Patient Mod assist for transfers Still with c/o nausea Will check ABD Xray aaaaaaand add Reglan lowdose Consider checking U/A Review of Systems Gastrointestinal: Nausea Objective Exam Last Set of Vital Signs Vital Signs Date Time Temp Pulse Resp B/P (MAP) Pulse Ox O2 Delivery O2 Flow Rate FiO2 08/07/17 02:00 97.5 84 16 95/62 (73) 96 Room Air Capillary Refill : I&O Intake and Output 08/07/17 00:00 Intake Total 1225 ml Balance 1225 ml Intake Oral 1225 ml # Voids 7 General: Alert, Oriented X3, Cooperative, No Acute Distress HEENT: Atraumatic, PERRLA, EOMI, Mucous Memb Moist/[place] Neck: Supple, No JVD Lungs: Clear to Auscultation Heart: Regular Rate, Other (S/P pacemaker) Abdomen: Normal Bowel Sounds, Soft, No Tenderness Extremities: Other (plus edeam RT ankle > left) Neuro: Other (Weakness RT leg functional BUES and LEFT LE) Psych/Mental Status: Mental Status NL Results Lab Laboratory Tests 08/04/17 11:09: White Blood Count 8.2, Red Blood Count 3.11L, Hemoglobin 9.6L, Hematocrit 29L, Mean Corpuscular Volume 94, Mean Corpuscular Hemoglobin 31, Mean Corpuscular Hemoglobin Concent 33, Red Cell Distribution Width 16.2H, Platelet Count 374, Mean Platelet Volume 9.2, Sodium Level 139, Potassium Level 4.8, Chloride Level 109H, Carbon Dioxide Level 19L, Anion Gap 11, Blood Urea Nitrogen 21H, Creatinine 1.36H, Estimat Glomerular Filtration Rate 37, BUN/Creatinine Ratio 15 , Glucose Level 105, Calcium Level 9.0, Total Bilirubin 0.6, Aspartate Amino Transf (AST/SGOT) 27, Alanine Aminotransferase (ALT/SGPT) 18, Alkaline Phosphatase 105, Total Protein 5.9L, Albumin 3.1L Assessment/Plan Assessment Distal RT Femur FRX s/p ORIF OSH NWB RLE Prior RT TKR Postop anemia Nausea HTN Renal insufficiency Hypoalbuminemia S/P pacemanker for SSS S/P cardiac ablation Plan Continue PT/OT Team Conference held yesterday-see report for full functional update and POC and ELOS Venous doppler negative for DVT Pierre stoner for Edema SCDS for DVT Prophylaxis F/U re recurrent nausea. See orders JACQUELINE HORNE MD Aug 07, 2017 08:47
--- NOTE | 2017-08-07 09:40 | ST Dysphagia Evaluation ---
Speech Evaluation-General Medical Diagnosis R femur fx, R ORIF Onset Date: Jul 27, 2017 Therapy Diagnosis Therapy Diagnosis: Oropharyngeal Swallow WNL Precautions Precautions/Isolations: Fall Prevention, Standard Precautions Referral Referring Physician: Dr. Kedar Rodriguez Reason for Referral: Evaluation/Treatment Bedside Swallowing Evaluation Medical History Pertinent Medical History: Atrial Fib, CAD, HTN Reviewed History: Yes Social History Current Living Status: Alone Speech PLF/Current-Dysphagia Prior Level of Function The patient reported an intermittent globus sensation upon swallowing. The patient denied any correlation of the globus sensation to specific food consistencies. Subjective The patient was seated upright in a chair upon entrance. The patient had her breakfast meal present. The patient was agreeable to participation in the bedside swallowing evaluation. Cognitive Status Patient Orientation: Person, Place Oral Motor Skills Dentition: Edentalous Denture Type: Full- Upper & Lower (The patient has dentures present, however, does not wish to wear them throughout her meal.) Current Food Consistancy: Regular, Thin Liquids Ability to Follow Directions: Fair Oral Expression Ability: Mild Impairment Voice Voice Phonatory-Based Quality: Breathy, Weak Voice Pitch: Normal Voice Loudness: Mildly Soft/Quiet Face Facial Symmetry: Symmetrical Oral-Facial Assessment Oral-Facial Dentition: Normal Labial Seal Description: Normal Smile: Normal Lingual Protrusion: Normal Lingual ROM: Normal Lingual Strength: Normal Dysphagia Evaluation Consistencies Presented: Regular (Saltine Cracker), Thin Liquid (Apple Juice via straw.), Pureed, Mixed No oral impairments were noted throughout the evaluation. No pharyngeal deficits were noted throughout the evaluation. - No signs/symptoms of aspiration were demonstrated throughout the evaluation. The patient reported the presence of the globus sensation (near the laryngeal region), however, was able to minimize the sensation with a bolus of thin liquid. Dietary Recommendations: Regular Liquid Recommendations: Thin Swallowing Precautions: Alternate Liquids/Solids, Small Bites and Sips, Sitting Upright 90 Degrees Dysphagia Evaluation Summary The patient displayed an oropharyngeal swallow function within normal limits. Speech Short Term Goals Short Term Goals Short Term Goals 1. The patient will complete a full cognitive evaluation with limited verbal prompting from the clinician. MET (08/05/17) 2. The patient will provide simple orientation information with 90% accuracy independently or with the use of an external aid. 3. The patient will recall two functional memory strategies for use at home. 4. The patient will demonstrate 80% accuracy with safety problem solving with mild clinician verbal cueing. Time Frame-STG: Two Weeks Speech Assisted Goals Song Lyricist Goals 1. The patient will demonstrate improved cognitive linguistic skills for increased function and safety with ADL's. Time Frame: Three Weeks Comprehension: 5 Expression: 5 Social Interaction: 5 Problem Solvin Memory: 4 Speech-Plan Treatment Plan Speech Therapy Treatment Plan: Discontinue ST Evaluation, only. ST will continue cognitive treatment. Treatment Duration: Aug 18, 2017 Frequency: Modified Program (IRF) (Four to five times per week.) Estimated Hrs Per Day: .5 hour per day Rehab Potential: Fair Safety Risks/Education Teaching Recipient: Patient Teaching Methods: Discussion Response to Teaching: Verbalize Understanding Education Topics Provided: Results, Recommendations, Plan of Care, Signs/Symptoms of Aspiration Time Speech Therapy Time In: 08:30 Speech Therapy Time Out: 09:00 Total Billed Time: 30 Billed Treatment Time 1, ELENA JIMÉNEZ Aug 07, 2017 09:40
--- NOTE | 2017-08-07 11:27 | Diagnostic Imaging Report ---
Indication: Abdominal pain. Comparison: No prior studies are available for comparison. Findings: A single view of the abdomen was obtained. The bowel gas pattern is nonobstructed. There are surgical clips in the gallbladder fossa. Calcific densities in the pelvis are noted, indeterminate. There are postop changes of right hip arthroplasty. Degenerative changes to the left hip are noted. Impression: No acute abnormality is detected. Dictated by: Dictated on workstation # [id number]
[2017-08-07] MEDS: METOCLOPRAMIDE 5 MG (REGLAN) TAB PO SCH ×3 (11:42→21:07)
--- NOTE | 2017-08-07 12:10 | Physical Therapy Daily Note ---
PT Daily Note-Current Subjective Pt is sitting in recliner pre tx with both legs elevated. Pt complains of pain at 10/10 with no visual signs of distress. Pt agrees to PT. Pain Numeric Pain Scale: 10-Worst Possible Pain Location: Right Location Body Site: Knee Appearance Pt is laying in bed post tx reports pain has decreased to 8/10. Nurse call, phone, and tray are within reach. Mental Status Patient Orientation: Person, Place, Situation knee immobilizer Transfers Functional [place] Measure 0=Not Assessed/NA 4=Minimal Assistance 1=Total Assistance 5=Supervision or Setup 2=Maximal Assistance 6=Modified [place] 3=Moderate Assistance 7=Complete IndependenceIRFPAI Quality Coding Scale 6 Independent with activity with or without an assistive device 5 Patient requires set up or clean up by helper. Patient completes activity by themselves 4 Supervision or touching assist (CGA). [place] provide cues , steadying assist 3 The helper provides less than half the effort to complete the activity 2 The helper provides more than half the effort to complete the activity 1 Dependent. The helper does all the effort to complete an activity 7 Patient refused to complete or attempt activity 9 The patient did not perform the activity before the current illness or injury 88 Not attempted due to Medical conditions or safety concerns Transfers (B, C, W/C) (FIM): 2 Scootin Rollin Supine to/from Sit: 4 Sit to/from Stand: 2 Bed to/from Chair: 2 (sliding board) Max A required for sit to stand and bed to chair transfers. Cues for positioning Weight Bearing Right Lower Extremity: Right Non Weight Bearing Left Lower Extremity: Left Full Weight Bearing Gait Training Does the Patient Walk?: No and Walking Goal IS indicated Wheelchair Training Does the Pt Use a Wheelchair?: Yes Wheelchair (FIM): 2 Distance: 100 feet x2 Wheelchair Level of Assist: 4 Type of Wheelchair: Manual Min A required for steering. Exercises Supine Ex: Ankle pumps (20 x1 RLE), Hip abd/add (20 x2 RLE) Seated Therapy Exercises: Ankle pumps (20 x2 BLE), Long arc quads (20 x1 LLE), Hip flexion (20 x1 BLE) PROM and stretching of the R ankle in PF, DF, inversion, eversion x 30 seconds each Treatments Pt performed bed mobility, WCH mobility, LE exercises, functional activity. Assessment Current Status: Fair Progress As pt performs exercises with the RLE, her pain diminishes from 10 to 8/10. Due to weakness in the RLE, pt is not yet able to actively lift the R hip off of the floor. Stretching of the R ankle performed to prevent contractures. Pt reports feeling that PT went better today. Pt is making fair progress towards goals. PT Short Term Goals Short Term Goals Time Frame: Aug 08, 2017 Transfers (B,C,W/C) (FIM): 3 Gait (FIM): 1 Distance (FIM): 0=699-42 ft Gait Distance Comment: 20' Gait Level of Assist: 4 Gait Assistive Device: FWW Wheelchair (FIM): 5 Wheelchair distance (FIM): 9=392-80 ft Wheelchair Distance: 100 feet x1 Wheelchair Level of Assist: 5 PT Dehydrogenation Operator Goals Half-Way Goals PT Dehydrogenation Operator Goals Time Frame: Aug 22, 2017 Transfers (B,C,W/C) (FIM): 5 Sit to Lying (QC): 4 Lying-Sitting on Side/Bed(QC): 4 Sit to Stand (QC): 4 Rollin Roll Left to Right (QC): 4 Chair/Gmp-ak-Vcydv Xfer(QC): 4 Car Transfer (QC): 4 Does the Patient Walk: No and Walking Goal IS indicated Gait (FIM): 2 Distance: 50' Walk 10 feet (QC): 4 Walk 10ft-Uneven Surface(QC): 4 Walk 50ft with 2 Turns (QC): 4 Walk 150 ft (QC): 4 Gait Level of Assist: 5 Gait Assistive Device: FWW Does the Pt use WC or Scooter?: No Stairs (FIM): 2 # of Steps: 4 1 Step (curb) (QC): 4 4 Steps (QC): 4 12 Steps (QC): 88 Stairs Level Of Assist: 4 PT Plan Problem List Problem List: Activity Tolerance, Functional Strength, Safety, Balance, Gait, Transfer, Bed Mobility, ROM Treatment/Plan Treatment Plan: Continue Plan of Care Treatment Plan: Bed Mobility, Concurrent Therapy, Education, Functional Activity Ana, Functional Strength, Group Therapy, Gait, Safety, Therapeutic Exercise, Transfers Treatment Duration: Aug 22, 2017 Frequency: At least 5 of 7 days/Wk (IRF) Estimated Hrs Per Day: 1.5 hours per day Patient and/or Family Agrees t: Yes Safety Risks/Education Patient Education: Transfer Techniques, Reviewed Precautions, Correct Positioning, W/C Management, Safety Issues Teaching Recipient: Patient Teaching Methods: Demonstration, Discussion Response to Teaching: Reinforcement Needed Time/GCodes Time In: 1100 Time Out: 1200 Total Billed Treatment Time: 60 Total Billed Treatment 1 visit 10 min WC 30 min EX 20 min FA LISE BRUCE PT Aug 07, 2017 12:10
--- NOTE | 2017-08-07 12:57 | Occupational Ther Daily Note ---
OT Current Status-Daily Note Subjective Pt alert, sitting in recliner. Pt agreed to therapy. C/o pain in head, stomach and a lump in throat. Nrsg notified. Mental Status/Objective Patient Orientation: Person, Place, Time, Situation Functional [place] Measure 0=Not Assessed/NA 4=Minimal Assistance 1=Total Assistance 5=Supervision or Setup 2=Maximal Assistance 6=Modified [place] 3=Moderate Assistance 7=Complete [place] ADL-Treatment Pt completed sponge bath. Pt able to cleanse upper body, lisa area and L LE. Unable to cleanse R LE due to leg brace. Assist x2 to stand and cleanse buttocks. Pt donned/doffed upper body clothing by self after set up. Pt required assist to don/doff clothing over feet then assist x2 to hike pants over hips. Pt able to complete own grooming while sitting. Pt worked on sit to stand with lift recliner to increase height to push up from. Pt still has difficulty with bearing wt with L LE to support body. After therapy, pt sitting in recliner with all needs met in room. Functional [place] Measure 0=Not Assessed/NA 4=Minimal Assistance 1=Total Assistance 5=Supervision or Setup 2=Maximal Assistance 6=Modified [place] 3=Moderate Assistance 7=Complete IndependenceIRFPAI Quality Coding Scale 6 Independent with activity with or without an assistive device 5 Patient requires set up or clean up by helper. Patient completes activity by themselves 4 Supervision or touching assist (CGA). [place] provide cues , steadying assist 3 The helper provides less than half the effort to complete the activity 2 The helper provides more than half the effort to complete the activity 1 Dependent. The helper does all the effort to complete an activity 7 Patient refused to complete or attempt activity 9 The patient did not perform the activity before the current illness or injury 88 Not attempted due to Medical conditions or safety concerns Grooming (FIM): 6 Oral Hygiene (QC): 6 Bathing (FIM): 1 (assist x2 when standing to cleanse buttocks) Bathing Location: L Arm, R Arm, L Upper Leg, R Upper Leg, L Lower Leg ( including foot), Chest, Abdomen, Perineal Area Shower/Bathe Self (QC): 1 Upper Body (FIM): 5 Upper Body Dressing (QC): 5 Lower Body Dressing (FIM): 1 Lower Body Dressing (QC): 1 On/Off Footwear (QC): 1 Toileting Hygiene (QC): 1 OT Short Term Goals Short Term Goals Time Frame: Aug 15, 2017 Bathing(FIM): 4 Lower Body Dressing(FIM): 3 Toileting(FIM): 3 Transfers (B,C,W/C) (FIM): 3 Toilet/Commode Transfer(FIM): 3 Additional Short Term Goals: 1-Demonstrate ADL Tasks, 2-Verbalize Understanding , 3-ImproveStrength/Ana 1=Demonstrate adherence to instructed precautions during ADL tasks. 2=Patient will verbalize/demonstrate understanding of assistive devices/ modifications for ADL. 3=Patient will improve strength/tolerance for activity to enable patient to perform ADL's. OT Studio Operation Engineer Goals Studio Operation Engineer Goals Time Frame: Aug 22, 2017 Eating (FIM): 6 Eating (QC): 6 Groomin Oral Hygiene (QC): 6 Bathing(FIM): 5 Shower/Bathe Self (QC): 5 Upper Body Dressing(FIM): 5 Upper Body Dressing (QC): 5 Lower Body Dressing(FIM): 5 Lower Body Dressing (QC): 5 On/Off Footwear (QC): 5 Toileting(FIM): 5 Toileting Hygiene (QC): 5 Toilet/Commode Transfer(FIM): 5 Toilet/Commode Transfer (QC): 5 Shower Transfer(FIM): 5 Comprehension(FIM): 5 Expression (FIM): 5 Social Interaction(FIM): 5 Problem Solving(FIM): 4 Memory(FIM): 4 Additional Goals: 1-Demonstrate ADL Tasks, 2-Verbalize Understanding, 3- ImproveStrength/Ana 1=Demonstrate adherence to instructed precautions during ADL tasks. 2=Patient will verbalize/demonstrate understanding of assistive devices/ modifications for ADL. 3=Patient will improve strength/tolerance for activity to enable patient to perform ADL's. OT Education/Plan Problem List/Assessment Pt would benefit from skilled OT to increase her independence in basic self care and to decrease caregiver burden Discharge Recommendations Plan/Recommendations: Continue POC Treatment Plan/Plan of Care Patient would benefit from OT for education, treatment and training to promote independence in ADL's, mobility, safety and/or upper extremity function for ADL' s. Plan of Care: ADL Retraining, Functional Mobility, Group Exercise/Act as Ind ( education, exercise, act tolerance, funct activities, mobility), UE Funct Exercise/Act, UE Neuromus Re-Ed/Coord Treatment Duration: Aug 22, 2017 Frequency: At least 5 of 7 days/Wk (IRF) Estimated Hrs Per Day: 1.5 hours per day Agreement: Yes Rehab Potential: Fair Time/GCodes Start Time: 09:00 Stop Time: 10:15 Total Time Billed (hr/min): 75 Billed Treatment Time 1 visit-ADL 5 (75 min) SONIA CROCKETT Aug 07, 2017 12:57
--- NOTE | 2017-08-07 14:37 | Physical Therapy Daily Note ---
PT Daily Note-Current Subjective Patient is in bed and agrees to PT. Pain Numeric Pain Scale: 5-Moderate Pain Location: Right Location Body Site: Thigh Pain Description: Ache Mental Status Patient Orientation: Normal For Age Transfers Functional [place] Measure 0=Not Assessed/NA 4=Minimal Assistance 1=Total Assistance 5=Supervision or Setup 2=Maximal Assistance 6=Modified [place] 3=Moderate Assistance 7=Complete IndependenceIRFPAI Quality Coding Scale 6 Independent with activity with or without an assistive device 5 Patient requires set up or clean up by helper. Patient completes activity by themselves 4 Supervision or touching assist (CGA). [place] provide cues , steadying assist 3 The helper provides less than half the effort to complete the activity 2 The helper provides more than half the effort to complete the activity 1 Dependent. The helper does all the effort to complete an activity 7 Patient refused to complete or attempt activity 9 The patient did not perform the activity before the current illness or injury 88 Not attempted due to Medical conditions or safety concerns Transfers (B, C, W/C) (FIM): 2 Scootin Rollin Roll Left to Right (QC): 4 Supine to/from Sit: 4 Sit to/from Stand: 2 Sit to Lying (QC): 4 Sit to Stand (QC): 2 sit to stand from elevated bed to FWW with max assist x 2 sets. Weight Bearing Right Lower Extremity: Right Non Weight Bearing Left Lower Extremity: Left Full Weight Bearing Exercises Supine Ex: Ankle pumps, Quad Set, Straight leg raise, Hip abd/add Supine Reps: 10 (3 sets AAROM right LE) Assessment Patient continues to have extreme difficulty with sit to stand with use use of left LE and bilateral UE's with NWB right LE. PT Short Term Goals Short Term Goals Time Frame: Aug 08, 2017 Transfers (B,C,W/C) (FIM): 3 Gait (FIM): 1 Distance (FIM): 9=802-08 ft Gait Distance Comment: 20' Gait Level of Assist: 4 Gait Assistive Device: FWW Wheelchair (FIM): 5 Wheelchair distance (FIM): 0=878-34 ft Wheelchair Distance: 100 feet x2 Wheelchair Level of Assist: 5 PT Snf Goals Snf Goals PT Snf Goals Time Frame: Aug 22, 2017 Transfers (B,C,W/C) (FIM): 5 Sit to Lying (QC): 4 Lying-Sitting on Side/Bed(QC): 4 Sit to Stand (QC): 4 Rollin Roll Left to Right (QC): 4 Chair/Nao-es-Xxlol Xfer(QC): 4 Car Transfer (QC): 4 Does the Patient Walk: No and Walking Goal IS indicated Gait (FIM): 2 Distance: 50' Walk 10 feet (QC): 4 Walk 10ft-Uneven Surface(QC): 4 Walk 50ft with 2 Turns (QC): 4 Walk 150 ft (QC): 4 Gait Level of Assist: 5 Gait Assistive Device: FWW Does the Pt use WC or Scooter?: No Stairs (FIM): 2 # of Steps: 4 1 Step (curb) (QC): 4 4 Steps (QC): 4 12 Steps (QC): 88 Stairs Level Of Assist: 4 PT Plan Treatment/Plan Treatment Plan: Continue Plan of Care Treatment Plan: Bed Mobility, Concurrent Therapy, Education, Functional Activity Ana, Functional Strength, Group Therapy, Gait, Safety, Therapeutic Exercise, Transfers Treatment Duration: Aug 22, 2017 Frequency: At least 5 of 7 days/Wk (IRF) Estimated Hrs Per Day: 1.5 hours per day Patient and/or Family Agrees t: Yes Time/GCodes Time In: 1400 Time Out: 1430 Total Billed Treatment Time: 30 Total Billed Treatment 1 visit EX 15 min FA 15 min SONYA MARIA PT Aug 07, 2017 14:37
[2017-08-07 18:41] VITALS: BP 148/76
[2017-08-07] MEDS: meTOprolol TARTRATE 25 MG (LOPRESSOR) TABLET PO SCH (21:06)
[2017-08-07] MEDS: MIRTAZAPINE 15 MG (REMERON) TAB PO SCH (21:07)
[2017-08-08] MEDS: PANTOPRAZOLE 20 MG TABLET (PROTONIX) PO SCH ×2 (05:58→16:32)
[2017-08-08] MEDS: METOCLOPRAMIDE 5 MG (REGLAN) TAB PO SCH ×4 (05:58→20:51)
[2017-08-08] MEDS: PRIMIDONE 250MG (MYSOLINE) TAB PO SCH ×3 (05:58→20:51)
[2017-08-08 06:39] VITALS: BP 121/76
[2017-08-08] MEDS: SENNA W/DOCUSATE (SENOKOT S) TABLET PO SCH ×2 (08:03→20:51)
[2017-08-08] MEDS: LACTOBACILLUS Acidoph/Bulgar (LACTINEX/FLORANEX) TAB PO SCH (08:03)
[2017-08-08] MEDS: DULoxetine 30 MG (CYMBALTA) CAP PO SCH (08:04)
[2017-08-08] MEDS: DILTIAZEM 30 MG (CARDIZEM) TAB PO SCH ×2 (08:04→20:51)
[2017-08-08] MEDS: FAMOTIDINE 20 MG (PEPCID) TABLET PO SCH (08:04)
[2017-08-08] MEDS: clonazePAM 0.5 MG (KlonoPIN) TAB PO SCH ×3 (08:04→20:51)
[2017-08-08] MEDS: ASPIRIN E.C. 325 MG (ECOTRIN) TABLET PO SCH (08:04)
[2017-08-08] MEDS: meTOprolol TARTRATE 50 MG (LOPRESSOR) TAB PO SCH (08:04)
--- NOTE | 2017-08-08 08:19 | PM & R (SOAP) Progress Note ---
Subjective Time Seen by Provider: 07:55 Subjective/Events-last exam Patient was seen in her room this AM No nausea this AM Patient min assist for transfers Review of Systems Musculoskeletal: leg pain Objective Exam Last Set of Vital Signs Vital Signs Date Time Temp Pulse Resp B/P (MAP) Pulse Ox O2 Delivery O2 Flow Rate FiO2 08/08/17 06:39 98.0 77 18 121/76 (91) 99 Room Air Capillary Refill : I&O Intake and Output 08/08/17 00:00 Intake Total 1170 ml Balance 1170 ml Intake Oral 1170 ml # Voids 7 # Bowel Movements 1 General: Alert, Oriented X3, Cooperative, No Acute Distress HEENT: Atraumatic, PERRLA, EOMI, Mucous Memb Moist/[place] Neck: Supple, No JVD Lungs: Clear to Auscultation Heart: Regular Rate, Other (S/P pacemaker) Abdomen: Normal Bowel Sounds, Soft, No Tenderness Extremities: Other (plus edeam RT ankle > left) Neuro: Other (Weakness RT leg functional BUES and LEFT LE) Psych/Mental Status: Mental Status NL Assessment/Plan Assessment Distal RT Femur FRX s/p ORIF OSH NWB RLE Prior RT TKR Postop anemia Nausea-improved HTN Renal insufficiency Hypoalbuminemia S/P pacemanker for SSS S/P cardiac ablation Plan Continue PT/OT Team Conference held 08-06-17 see report for full functional update and POC and ELOS Venous doppler negative for DVT Pierre stoner for Edema SCDS for DVT Prophylaxis Monitor for any further nausea JACQUELINE HORNE MD Aug 08, 2017 08:19
--- NOTE | 2017-08-08 10:01 | Physical Therapy Daily Note ---
PT Daily Note-Current Subjective Patient in bed pre tx, agrees to PT, will be co-treating with OT for a shower and dressing due to impairments in mobility, transfers, and balance. Patient has 5/10 pain in her right leg. Patient had 2+ edema in her right foot. Appearance Patient in bed post tx with nurse call, phone, tray, all needs met. Right leg re-wrapped and brace donned. Mental Status Patient Orientation: Person, Place, Situation Transfers Functional [place] Measure 0=Not Assessed/NA 4=Minimal Assistance 1=Total Assistance 5=Supervision or Setup 2=Maximal Assistance 6=Modified [place] 3=Moderate Assistance 7=Complete IndependenceIRFPAI Quality Coding Scale 6 Independent with activity with or without an assistive device 5 Patient requires set up or clean up by helper. Patient completes activity by themselves 4 Supervision or touching assist (CGA). [place] provide cues , steadying assist 3 The helper provides less than half the effort to complete the activity 2 The helper provides more than half the effort to complete the activity 1 Dependent. The helper does all the effort to complete an activity 7 Patient refused to complete or attempt activity 9 The patient did not perform the activity before the current illness or injury 88 Not attempted due to Medical conditions or safety concerns Transfers (B, C, W/C) (FIM): 2 Scootin Rollin Supine to/from Sit: 4 Sit to/from Stand: 2 Bed to/from Chair: 2 Weight Bearing Right Lower Extremity: Right Non Weight Bearing Left Lower Extremity: Left Full Weight Bearing Treatments Patient had to transfer to the side of the bed and then transfer to a shower chair and was transported to the shower room. She was undressed and showered. Then, she stood up with PT and dried off and sat in wheelchair and transported to her room and back to bed. She then rolled several times back and forth for dressing. PT worked on bed mobility, transfers, standing, and balance. OT worked on dressing and grooming and showering. Assessment Current Status: Poor Progress no change in mobility PT Short Term Goals Short Term Goals Time Frame: Aug 08, 2017 Transfers (B,C,W/C) (FIM): 3 Gait (FIM): 1 Distance (FIM): 6=823-48 ft Gait Distance Comment: 20' Gait Level of Assist: 4 Gait Assistive Device: FWW Wheelchair (FIM): 5 Wheelchair distance (FIM): 2=181-76 ft Wheelchair Distance: 100 feet x2 Wheelchair Level of Assist: 5 PT Care Home Goals Aluminum Siding Applicator Goals PT Care Home Goals Time Frame: Aug 22, 2017 Transfers (B,C,W/C) (FIM): 5 Sit to Lying (QC): 4 Lying-Sitting on Side/Bed(QC): 4 Sit to Stand (QC): 4 Rollin Roll Left to Right (QC): 4 Chair/Hzq-qc-Pwljp Xfer(QC): 4 Car Transfer (QC): 4 Does the Patient Walk: No and Walking Goal IS indicated Gait (FIM): 2 Distance: 50' Walk 10 feet (QC): 4 Walk 10ft-Uneven Surface(QC): 4 Walk 50ft with 2 Turns (QC): 4 Walk 150 ft (QC): 4 Gait Level of Assist: 5 Gait Assistive Device: FWW Does the Pt use WC or Scooter?: No Stairs (FIM): 2 # of Steps: 4 1 Step (curb) (QC): 4 4 Steps (QC): 4 12 Steps (QC): 88 Stairs Level Of Assist: 4 PT Plan Problem List Problem List: Activity Tolerance, Functional Strength, Safety, Balance, Gait, Transfer, Bed Mobility, ROM Treatment/Plan Treatment Plan: Continue Plan of Care Treatment Plan: Bed Mobility, Concurrent Therapy, Education, Functional Activity Ana, Functional Strength, Group Therapy, Gait, Safety, Therapeutic Exercise, Transfers Treatment Duration: Aug 22, 2017 Frequency: At least 5 of 7 days/Wk (IRF) Estimated Hrs Per Day: 1.5 hours per day Patient and/or Family Agrees t: Yes Safety Risks/Education Patient Education: Transfer Techniques, Reviewed Precautions, Correct Positioning, Reviewed Don/Doff Brace, Disease Process Teaching Recipient: Patient Teaching Methods: Demonstration, Discussion Response to Teaching: Reinforcement Needed Time/GCodes Time In: 900 Time Out: 1000 Total Billed Treatment Time: 60 Total Billed Treatment 1 visit FA 60' co-treated with OT for the whole 60 min LISE BRUCE PT Aug 08, 2017 10:00
--- NOTE | 2017-08-08 10:27 | Occupational Ther Daily Note ---
OT Current Status-Daily Note Subjective Pt alert, lying in bed. Pt agreed to therapy. No c/o pain at this time. Mental Status/Objective Patient Orientation: Person, Place, Time, Situation Functional [place] Measure 0=Not Assessed/NA 4=Minimal Assistance 1=Total Assistance 5=Supervision or Setup 2=Maximal Assistance 6=Modified [place] 3=Moderate Assistance 7=Complete [place] ADL-Treatment OT/PT co-treat due to need for skilled care during transfers and ADLs, weakness and decreased activity tolerance hinders ability to assist with functional tasks. PT worked on transfers, bed mobility and dynamic standing. OT worked on bathing, dressing and functional skills in standing. After therapy, pt lying in bed with call light/phone in reach. All needs met in room. Functional [place] Measure 0=Not Assessed/NA 4=Minimal Assistance 1=Total Assistance 5=Supervision or Setup 2=Maximal Assistance 6=Modified [place] 3=Moderate Assistance 7=Complete IndependenceIRFPAI Quality Coding Scale 6 Independent with activity with or without an assistive device 5 Patient requires set up or clean up by helper. Patient completes activity by themselves 4 Supervision or touching assist (CGA). [place] provide cues , steadying assist 3 The helper provides less than half the effort to complete the activity 2 The helper provides more than half the effort to complete the activity 1 Dependent. The helper does all the effort to complete an activity 7 Patient refused to complete or attempt activity 9 The patient did not perform the activity before the current illness or injury 88 Not attempted due to Medical conditions or safety concerns Grooming (FIM): 5 (After set up, pt is able to complete own grooming.) Oral Hygiene (QC): 5 Bathing (FIM): 4 (Sitting on rolling shower chair with cutout, pt is able to bathe all areas except R LE due to brace on leg. Assist to cleanse buttocks for efficiency and cleanliness.) Bathing Location: L Arm, R Arm, L Upper Leg, L Lower Leg (including foot), Chest, Abdomen, Perineal Area Shower/Bathe Self (QC): 4 Upper Body (FIM): 5 (After setup, pt able to complete by self.) Upper Body Dressing (QC): 5 Lower Body Dressing (FIM): 1 (Assist x2 to stand and hike over hips. Pt unable to don/doff over R foot due to brace. Pt able to reach to L foot but unable to manipulate clothing.) Lower Body Dressing (QC): 1 On/Off Footwear (QC): 1 Shower Transfer(FIM): 1 (Using rolling shower chair for shower transfer.) OT Short Term Goals Short Term Goals Time Frame: Aug 15, 2017 Bathing(FIM): 4 Lower Body Dressing(FIM): 3 Toileting(FIM): 3 Transfers (B,C,W/C) (FIM): 3 Toilet/Commode Transfer(FIM): 3 Additional Short Term Goals: 1-Demonstrate ADL Tasks, 2-Verbalize Understanding , 3-ImproveStrength/Ana 1=Demonstrate adherence to instructed precautions during ADL tasks. 2=Patient will verbalize/demonstrate understanding of assistive devices/ modifications for ADL. 3=Patient will improve strength/tolerance for activity to enable patient to perform ADL's. OT Assisted Goals Assisted Goals Time Frame: Aug 22, 2017 Eating (FIM): 6 Eating (QC): 6 Groomin Oral Hygiene (QC): 6 Bathing(FIM): 5 Shower/Bathe Self (QC): 5 Upper Body Dressing(FIM): 5 Upper Body Dressing (QC): 5 Lower Body Dressing(FIM): 5 Lower Body Dressing (QC): 5 On/Off Footwear (QC): 5 Toileting(FIM): 5 Toileting Hygiene (QC): 5 Toilet/Commode Transfer(FIM): 5 Toilet/Commode Transfer (QC): 5 Shower Transfer(FIM): 5 Comprehension(FIM): 5 Expression (FIM): 5 Social Interaction(FIM): 5 Problem Solving(FIM): 4 Memory(FIM): 4 Additional Goals: 1-Demonstrate ADL Tasks, 2-Verbalize Understanding, 3- ImproveStrength/Ana 1=Demonstrate adherence to instructed precautions during ADL tasks. 2=Patient will verbalize/demonstrate understanding of assistive devices/ modifications for ADL. 3=Patient will improve strength/tolerance for activity to enable patient to perform ADL's. OT Education/Plan Problem List/Assessment Pt would benefit from skilled OT to increase her independence in basic self care and to decrease caregiver burden Discharge Recommendations Plan/Recommendations: Continue POC Treatment Plan/Plan of Care Patient would benefit from OT for education, treatment and training to promote independence in ADL's, mobility, safety and/or upper extremity function for ADL' s. Plan of Care: ADL Retraining, Functional Mobility, Group Exercise/Act as Ind ( education, exercise, act tolerance, funct activities, mobility), UE Funct Exercise/Act, UE Neuromus Re-Ed/Coord Treatment Duration: Aug 22, 2017 Frequency: At least 5 of 7 days/Wk (IRF) Estimated Hrs Per Day: 1.5 hours per day Agreement: Yes Rehab Potential: Fair Time/GCodes Start Time: 09:00 Stop Time: 10:00 Total Time Billed (hr/min): 60 Billed Treatment Time 1 visit-ADL 4 (60 min) SONIA CROCKETT Aug 08, 2017 10:27
--- NOTE | 2017-08-08 10:57 | Speech Therapy Daily Note ---
Speech Daily Progress Note Subjective Date Seen by Provider: Aug 08, 2017 Time Seen by Provider: 10:00 The patient was seated upright in bed upon entrance. The patient greeted the clinician appropriately and was agreeable to participation in the cognitive treatment session. Prior to the onset of the patient's treatment, the clinician aided the patient in final details of getting herself ready for the day (placement of lipstick, earrings, etc.). Objective Functional Recall: The patient was read several articles from the local newspaper. The patient was asked to listen to the article and recall/retell a summary of the article's main events. The patient demonstrated fair accuracy with this task, requiring mild clinician prompting for recall of detailed information. Assessment Assessment Current Status: Good Progress Treatment Plan Continue Plan of Care Communication Comprehension: 3 Expression: 3 Social Cognition Social Interaction: 4 Problem Solvin Memory: 3 Speech Short Term Goals Short Term Goals Short Term Goals 1. The patient will complete a full cognitive evaluation with limited verbal prompting from the clinician. MET (08/05/17) 2. The patient will provide simple orientation information with 90% accuracy independently or with the use of an external aid. 3. The patient will recall two functional memory strategies for use at home. 4. The patient will demonstrate 80% accuracy with safety problem solving with mild clinician verbal cueing. Time Frame-STG: Two Weeks Speech [facility] Goals Molding Machine Tender Goals 1. The patient will demonstrate improved cognitive linguistic skills for increased function and safety with ADL's. Time Frame: Three Weeks Comprehension: 5 Expression: 5 Social Interaction: 5 Problem Solvin Memory: 4 Speech-Plan Treatment Plan Speech Therapy Treatment Plan: Continue Plan of Care Continue skilled speech pathology to target functional problem solving and memory. Treatment Duration: Aug 18, 2017 Frequency: Modified Program (IRF) (Four to five times per week.) Estimated Hrs Per Day: .5 hour per day Rehab Potential: Fair Safety Risks/Education Teaching Recipient: Patient Teaching Methods: Discussion Response to Teaching: Verbalize Understanding Education Topics Provided: Memory Strategies Time Speech Therapy Time In: 10:00 Speech Therapy Time Out: 10:30 Total Billed Time: 30 Billed Treatment Time 1QUIN ELIZABETH Aug 08, 2017 10:57
--- NOTE | 2017-08-08 15:12 | Therapy Group Daily Note ---
Therapy Daily Group Note Patient Education Topic Home Safety, Other List Below (flu prevention, walker, w/c) Exercises LE Seated Exercise, UE Exercise Other/Notes Pt transported via w/c to therapy gym for OT/PT group. Group consisted of introductions (name, place living, favorite boy/girl name), socialization, flu prevention/education, FWW and w/c education, seated UE/LE exercises, pt led exercises and home safety. Pt introduced self appropriately and actively listened to peers as they introduced themselves. Pt verbalized understanding of educational topics by asking questions and agreeing to recommendations given. Pt was able to complete exercises without difficulty and led peers in 1 exercise. Pt actively participated in home safety trivia and problem solving discussion with therapist and group members. Pt then was transported back to room via w/c and requested to use BSC. Assist x2 to complete transfer and toileting. After group, pt lying in bed with call light/phone in reach. All needs met in room. Start Time: 13:00 Stop Time: 14:30 Total Billed Treatment Time: 90 Total Billed Treatment 1-SONIA KIM Aug 08, 2017 15:12
[2017-08-08 18:00] VITALS: BP 142/81
[2017-08-08] MEDS: meTOprolol TARTRATE 25 MG (LOPRESSOR) TABLET PO SCH (20:51)
[2017-08-08] MEDS: MIRTAZAPINE 15 MG (REMERON) TAB PO SCH (20:51)
[2017-08-09 05:41] VITALS: BP 107/68
[2017-08-09] MEDS: PANTOPRAZOLE 20 MG TABLET (PROTONIX) PO SCH ×2 (06:07→16:27)
[2017-08-09] MEDS: METOCLOPRAMIDE 5 MG (REGLAN) TAB PO SCH ×4 (06:07→21:13)
[2017-08-09] MEDS: PRIMIDONE 250MG (MYSOLINE) TAB PO SCH ×3 (06:07→21:15)
[2017-08-09] MEDS: ONDANSETRON 4 MG (ZOFRAN) ORAL DISSOLVE TAB PO PRN (07:59)
[2017-08-09] MEDS: ASPIRIN E.C. 325 MG (ECOTRIN) TABLET PO SCH (08:00)
[2017-08-09] MEDS: clonazePAM 0.5 MG (KlonoPIN) TAB PO SCH ×3 (08:00→21:12)
[2017-08-09] MEDS: DULoxetine 30 MG (CYMBALTA) CAP PO SCH (08:00)
[2017-08-09] MEDS: meTOprolol TARTRATE 50 MG (LOPRESSOR) TAB PO SCH (08:00)
[2017-08-09] MEDS: LACTOBACILLUS Acidoph/Bulgar (LACTINEX/FLORANEX) TAB PO SCH (08:01)
[2017-08-09] MEDS: HYDROcodone/APAP 5 MG/325 MG (LORTAB) TAB PO PRN (08:01)
[2017-08-09] MEDS: SENNA W/DOCUSATE (SENOKOT S) TABLET PO SCH ×2 (08:01→21:12)
[2017-08-09] MEDS: DILTIAZEM 30 MG (CARDIZEM) TAB PO SCH ×2 (08:01→21:12)
[2017-08-09] MEDS: FAMOTIDINE 20 MG (PEPCID) TABLET PO SCH (08:06)
--- NOTE | 2017-08-09 10:04 | Physical Therapy Daily Note ---
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 States she has been medicated for this and it is not helping. Wants to see a nurse. this was reported. Nurse to assess pt. No Rx due to nature of pts. c/o Pain Numeric Pain Scale: 6 Location: Left Location Body Site: Chest Pain Description: Sharp Mental Status Patient Orientation: Person, Place, Time, Situation Transfers Functional [place] Measure 0=Not Assessed/NA 4=Minimal Assistance 1=Total Assistance 5=Supervision or Setup 2=Maximal Assistance 6=Modified [place] 3=Moderate Assistance 7=Complete IndependenceIRFPAI Quality Coding Scale 6 Independent with activity with or without an assistive device 5 Patient requires set up or clean up by helper. Patient completes activity by themselves 4 Supervision or touching assist (CGA). [place] provide cues , steadying assist 3 The helper provides less than half the effort to complete the activity 2 The helper provides more than half the effort to complete the activity 1 Dependent. The helper does all the effort to complete an activity 7 Patient refused to complete or attempt activity 9 The patient did not perform the activity before the current illness or injury 88 Not attempted due to Medical conditions or safety concerns Weight Bearing Right Lower Extremity: Right Non Weight Bearing Left Lower Extremity: Left Full Weight Bearing Assessment Current Status: Hold Per Dr/Nursing pt. with chest pain and nausea, will hold for assessment etc PT Short Term Goals Short Term Goals Time Frame: Aug 08, 2017 Transfers (B,C,W/C) (FIM): 3 Gait (FIM): 1 Distance (FIM): 2=683-41 ft Gait Distance Comment: 20' Gait Level of Assist: 4 Gait Assistive Device: FWW Wheelchair (FIM): 5 Wheelchair distance (FIM): 2=041-61 ft Wheelchair Distance: 100 feet x2 Wheelchair Level of Assist: 5 PT Electric Fork Operator Goals Electric Fork Operator Goals PT Group Home Goals Time Frame: Aug 22, 2017 Transfers (B,C,W/C) (FIM): 5 Sit to Lying (QC): 4 Lying-Sitting on Side/Bed(QC): 4 Sit to Stand (QC): 4 Rollin Roll Left to Right (QC): 4 Chair/Xta-hb-Yrysu Xfer(QC): 4 Car Transfer (QC): 4 Does the Patient Walk: No and Walking Goal IS indicated Gait (FIM): 2 Distance: 50' Walk 10 feet (QC): 4 Walk 10ft-Uneven Surface(QC): 4 Walk 50ft with 2 Turns (QC): 4 Walk 150 ft (QC): 4 Gait Level of Assist: 5 Gait Assistive Device: FWW Does the Pt use WC or Scooter?: No Stairs (FIM): 2 # of Steps: 4 1 Step (curb) (QC): 4 4 Steps (QC): 4 12 Steps (QC): 88 Stairs Level Of Assist: 4 PT Plan Treatment/Plan Treatment Plan: Continue Plan of Care Treatment Plan: Bed Mobility, Concurrent Therapy, Education, Functional Activity Ana, Functional Strength, Group Therapy, Gait, Safety, Therapeutic Exercise, Transfers Treatment Duration: Aug 22, 2017 Frequency: At least 5 of 7 days/Wk (IRF) Estimated Hrs Per Day: 1.5 hours per day Patient and/or Family Agrees t: Yes Time/GCodes Time In: 730 Time Out: 735 Total Billed Treatment Time: 0 Total Billed Treatment 1,No Rx , No Chg G Codes Necessary: No NIKKI KIM CARDIAC TECHNICIAN Aug 09, 2017 10:04
[2017-08-09 18:07] VITALS: BP 103/68
[2017-08-09] MEDS: MIRTAZAPINE 15 MG (REMERON) TAB PO SCH (21:12)
[2017-08-09] MEDS: meTOprolol TARTRATE 25 MG (LOPRESSOR) TABLET PO SCH (21:12)
[2017-08-10] MEDS: ACETAMINOPHEN 500 MG TAB (TYLENOL) PO PRN ×2 (02:37→23:56)
[2017-08-10 05:22] VITALS: BP 99/47
[2017-08-10] MEDS: PRIMIDONE 250MG (MYSOLINE) TAB PO SCH ×3 (06:05→21:00)
[2017-08-10] MEDS: PANTOPRAZOLE 20 MG TABLET (PROTONIX) PO SCH ×2 (06:05→16:13)
[2017-08-10] MEDS: METOCLOPRAMIDE 5 MG (REGLAN) TAB PO SCH ×4 (06:05→20:41)
[2017-08-10 08:07] VITALS: BP 104/58
[2017-08-10] MEDS: DULoxetine 30 MG (CYMBALTA) CAP PO SCH (08:13)
[2017-08-10] MEDS: clonazePAM 0.5 MG (KlonoPIN) TAB PO SCH ×3 (08:13→20:42)
[2017-08-10] MEDS: SENNA W/DOCUSATE (SENOKOT S) TABLET PO SCH ×2 (08:14→20:42)
[2017-08-10] MEDS: DILTIAZEM 30 MG (CARDIZEM) TAB PO SCH ×2 (08:14→20:41)
[2017-08-10] MEDS: meTOprolol TARTRATE 50 MG (LOPRESSOR) TAB PO SCH (08:14)
[2017-08-10] MEDS: FAMOTIDINE 20 MG (PEPCID) TABLET PO SCH (08:14)
[2017-08-10] MEDS: LACTOBACILLUS Acidoph/Bulgar (LACTINEX/FLORANEX) TAB PO SCH (08:14)
[2017-08-10] MEDS: ASPIRIN E.C. 325 MG (ECOTRIN) TABLET PO SCH (08:14)
[2017-08-10] MEDS: HYDROcodone/APAP 5 MG/325 MG (LORTAB) TAB PO PRN (08:36)
[2017-08-10] MEDS: ONDANSETRON 4 MG (ZOFRAN) ORAL DISSOLVE TAB PO PRN (12:22)
[2017-08-10 18:23] VITALS: BP 131/83
[2017-08-10] MEDS: MIRTAZAPINE 15 MG (REMERON) TAB PO SCH (20:41)
[2017-08-10] MEDS: meTOprolol TARTRATE 25 MG (LOPRESSOR) TABLET PO SCH (20:42)
[2017-08-11 02:00] VITALS: BP 103/65
[2017-08-11] MEDS: METOCLOPRAMIDE 5 MG (REGLAN) TAB PO SCH ×4 (06:19→20:46)
[2017-08-11] MEDS: PRIMIDONE 250MG (MYSOLINE) TAB PO SCH ×3 (06:19→21:17)
[2017-08-11] MEDS: PANTOPRAZOLE 20 MG TABLET (PROTONIX) PO SCH ×2 (06:19→16:27)
[2017-08-11] MEDS: clonazePAM 0.5 MG (KlonoPIN) TAB PO SCH ×3 (07:51→20:45)
[2017-08-11] MEDS: LACTOBACILLUS Acidoph/Bulgar (LACTINEX/FLORANEX) TAB PO SCH (07:51)
[2017-08-11] MEDS: meTOprolol TARTRATE 50 MG (LOPRESSOR) TAB PO SCH (07:51)
[2017-08-11] MEDS: DULoxetine 30 MG (CYMBALTA) CAP PO SCH (07:51)
[2017-08-11] MEDS: ASPIRIN E.C. 325 MG (ECOTRIN) TABLET PO SCH (07:51)
[2017-08-11] MEDS: FAMOTIDINE 20 MG (PEPCID) TABLET PO SCH (07:52)
[2017-08-11] MEDS: DILTIAZEM 30 MG (CARDIZEM) TAB PO SCH ×2 (07:52→20:46)
[2017-08-11] MEDS: HYDROcodone/APAP 5 MG/325 MG (LORTAB) TAB PO PRN ×3 (07:52→18:41)
[2017-08-11] MEDS: SENNA W/DOCUSATE (SENOKOT S) TABLET PO SCH ×2 (08:57→20:46)
--- NOTE | 2017-08-11 10:57 | Occupational Ther Daily Note ---
OT Current Status-Daily Note Subjective Pt alert, lying in bed. Pt stated that she was nauseous, nrsg brought meds. Pt agreed to therapy. No c/o pain at this time. Mental Status/Objective Patient Orientation: Person, Place, Time, Situation Functional [place] Measure 0=Not Assessed/NA 4=Minimal Assistance 1=Total Assistance 5=Supervision or Setup 2=Maximal Assistance 6=Modified [place] 3=Moderate Assistance 7=Complete [place] ADL-Treatment Pt completed lisa care lying in bed after set up. Assist to cleanse buttocks. Pt completed upper body bathing sitting in front of sink after set up. Pt completed own grooming while sitting in w/c at sink. After set up, pt complete upper body dressing by self sitting in w/c. Max A with donning/doffing lower body clothing lying in bed. Pt assisted turning side to side using bed rails to hike pants over hips. Pt max A with stand pivot transfer from surface to surface. Pt required assist to open packages and containers for breakfast then used regular utensils to cut and feed self. After therapy, pt sitting in recliner with call light/phone in reach. All needs met in room. Functional [place] Measure 0=Not Assessed/NA 4=Minimal Assistance 1=Total Assistance 5=Supervision or Setup 2=Maximal Assistance 6=Modified [place] 3=Moderate Assistance 7=Complete IndependenceIRFPAI Quality Coding Scale 6 Independent with activity with or without an assistive device 5 Patient requires set up or clean up by helper. Patient completes activity by themselves 4 Supervision or touching assist (CGA). [place] provide cues , steadying assist 3 The helper provides less than half the effort to complete the activity 2 The helper provides more than half the effort to complete the activity 1 Dependent. The helper does all the effort to complete an activity 7 Patient refused to complete or attempt activity 9 The patient did not perform the activity before the current illness or injury 88 Not attempted due to Medical conditions or safety concerns Eating (FIM): 5 Eating (QC): 5 Grooming (FIM): 5 Oral Hygiene (QC): 5 Upper Body (FIM): 5 Upper Body Dressing (QC): 5 Lower Body Dressing (FIM): 2 Lower Body Dressing (QC): 2 OT Short Term Goals Short Term Goals Time Frame: Aug 15, 2017 Bathing(FIM): 4 Lower Body Dressing(FIM): 3 Toileting(FIM): 3 Transfers (B,C,W/C) (FIM): 3 Toilet/Commode Transfer(FIM): 3 Additional Short Term Goals: 1-Demonstrate ADL Tasks, 2-Verbalize Understanding , 3-ImproveStrength/Ana 1=Demonstrate adherence to instructed precautions during ADL tasks. 2=Patient will verbalize/demonstrate understanding of assistive devices/ modifications for ADL. 3=Patient will improve strength/tolerance for activity to enable patient to perform ADL's. OT Plug Stitcher Goals [facility] Goals Time Frame: Aug 22, 2017 Eating (FIM): 6 Eating (QC): 6 Groomin Oral Hygiene (QC): 6 Bathing(FIM): 5 Shower/Bathe Self (QC): 5 Upper Body Dressing(FIM): 5 Upper Body Dressing (QC): 5 Lower Body Dressing(FIM): 5 Lower Body Dressing (QC): 5 On/Off Footwear (QC): 5 Toileting(FIM): 5 Toileting Hygiene (QC): 5 Toilet/Commode Transfer(FIM): 5 Toilet/Commode Transfer (QC): 5 Shower Transfer(FIM): 5 Comprehension(FIM): 5 Expression (FIM): 5 Social Interaction(FIM): 5 Problem Solving(FIM): 4 Memory(FIM): 4 Additional Goals: 1-Demonstrate ADL Tasks, 2-Verbalize Understanding, 3- ImproveStrength/Ana 1=Demonstrate adherence to instructed precautions during ADL tasks. 2=Patient will verbalize/demonstrate understanding of assistive devices/ modifications for ADL. 3=Patient will improve strength/tolerance for activity to enable patient to perform ADL's. OT Education/Plan Problem List/Assessment Pt would benefit from skilled OT to increase her independence in basic self care and to decrease caregiver burden Discharge Recommendations Plan/Recommendations: Continue POC Treatment Plan/Plan of Care Patient would benefit from OT for education, treatment and training to promote independence in ADL's, mobility, safety and/or upper extremity function for ADL' s. Plan of Care: ADL Retraining, Functional Mobility, Group Exercise/Act as Ind ( education, exercise, act tolerance, funct activities, mobility), UE Funct Exercise/Act, UE Neuromus Re-Ed/Coord Treatment Duration: Aug 22, 2017 Frequency: At least 5 of 7 days/Wk (IRF) Estimated Hrs Per Day: 1.5 hours per day Agreement: Yes Rehab Potential: Fair Time/GCodes Start Time: 07:53 Stop Time: 08:59 Total Time Billed (hr/min): 66 Billed Treatment Time 1 visit-ADL 4 (66 min) SONIA CROCKETT Aug 11, 2017 10:57
--- NOTE | 2017-08-11 11:47 | Speech Therapy Daily Note ---
Speech Daily Progress Note Subjective Date Seen by Provider: Aug 11, 2017 Time Seen by Provider: 10:00 The patient was seated in bed upon entrance. At the initiation of the session, the patient requested to use the restroom. The clinician aided the patient to the restroom with the aid of Yanet, a patient child care supervisor. The patient was agreeable to participation in the cognitive treatment session. Objective Orientation: The patient was oriented to month, date, and day of week. The patient stated the year was 2019. Once the accurate year was provided the patient stated, "oh I know that, I don't know why I keep saying 2019." Sequencing (functional)/Problem Solving: The patient recalled adequate transfer support and stated, "No, you are going to need some help. Two people move me." Once an additional staff member was present, the patient required moderate to maximum assist transferring to the bedside commode. In addition, the patient required [id number] problem solving and sequencing aid to safely and appropriately use the restroom. The patient was dependent of the two staff members to transfer, toilet, and return to a resting position. Assessment Assessment Current Status: Poor Progress Treatment Plan Continue Plan of Care Communication Comprehension: 3 Expression: 3 Social Cognition Social Interaction: 4 Problem Solvin Memory: 3 Speech Short Term Goals Short Term Goals Short Term Goals 1. The patient will complete a full cognitive evaluation with limited verbal prompting from the clinician. MET (08/05/17) 2. The patient will provide simple orientation information with 90% accuracy independently or with the use of an external aid. 3. The patient will recall two functional memory strategies for use at home. 4. The patient will demonstrate 80% accuracy with safety problem solving with mild clinician verbal cueing. Time Frame-STG: Two Weeks Speech [facility] Goals Accountant Bookkeeper Goals 1. The patient will demonstrate improved cognitive linguistic skills for increased function and safety with ADL's. Time Frame: Three Weeks Comprehension: 5 Expression: 5 Social Interaction: 5 Problem Solvin Memory: 4 Speech-Plan Treatment Plan Speech Therapy Treatment Plan: Continue Plan of Care Continue skilled speech pathology to target functional problem solving and sequencing. Treatment Duration: Aug 18, 2017 Frequency: Modified Program (IRF) (Four to five times per week.) Estimated Hrs Per Day: .5 hour per day Rehab Potential: Fair Safety Risks/Education Teaching Recipient: Patient Teaching Methods: Discussion Response to Teaching: Verbalize Understanding, Reinforcement Needed Education Topics Provided: Sequencing of ADL's Time Speech Therapy Time In: 10:00 Speech Therapy Time Out: 10:30 Total Billed Time: 30 Billed Treatment Time 1, ELENA OTOOLE Aug 11, 2017 11:47
--- NOTE | 2017-08-11 11:48 | Physical Therapy Daily Note ---
PT Daily Note-Current Subjective Pt is laying in bed pre tx and complains of pain at 8/10 in RLE. Pt agrees to PT. Nurse aware of her pain and she got a pain pill during tx. Pain Numeric Pain Scale: 8 Location: Right Location Body Site: Thigh Appearance Pt is sitting in recliner post tx with nurse call, phone, and tray within reach. Mental Status Patient Orientation: Normal For Age Attachments: Knee Immobilizer (RLE) Transfers Functional [place] Measure 0=Not Assessed/NA 4=Minimal Assistance 1=Total Assistance 5=Supervision or Setup 2=Maximal Assistance 6=Modified [place] 3=Moderate Assistance 7=Complete IndependenceIRFPAI Quality Coding Scale 6 Independent with activity with or without an assistive device 5 Patient requires set up or clean up by helper. Patient completes activity by themselves 4 Supervision or touching assist (CGA). [place] provide cues , steadying assist 3 The helper provides less than half the effort to complete the activity 2 The helper provides more than half the effort to complete the activity 1 Dependent. The helper does all the effort to complete an activity 7 Patient refused to complete or attempt activity 9 The patient did not perform the activity before the current illness or injury 88 Not attempted due to Medical conditions or safety concerns Transfers (B, C, W/C) (FIM): 2 Scootin Rollin Supine to/from Sit: 4 Sit to/from Stand: 2 Bed to/from Chair: 2 Pt requires min A for scooting and rolling and requires max A for sit to stand and bed to [facility] transfer. With use of sliding board, pt requires min A with manual assist at knee to prevent buckling. Weight Bearing Right Lower Extremity: Right Non Weight Bearing Left Lower Extremity: Left Full Weight Bearing Gait Training Does the Patient Walk?: No and Walking Goal IS indicated Wheelchair Training Does the Pt Use a Wheelchair?: Yes Wheelchair (FIM): 4 Distance: 150 feet x2 Wheelchair Level of Assist: 4 Type of Wheelchair: Manual Min A for steering Exercises Seated Therapy Exercises: Sit to stand (5 x2 at differing heights) Sit to stand from [facility] inside parallel bars: 2 x1 Standing posture: 2 x1 Treatments Pt performed bed mobility, WCH mobility, functional activity, and sit to stand exercises. Assessment Current Status: Poor Progress Pt continues to require max A for sit to stand and bed to [facility] transfers. Pt has difficulty extending L hip and knee during standing. Pt prefers to use both arms for sit to stand rather than LLE. PT Short Term Goals Short Term Goals Time Frame: Aug 08, 2017 Transfers (B,C,W/C) (FIM): 3 Gait (FIM): 1 Distance (FIM): 2=049-14 ft Gait Distance Comment: 20' Gait Level of Assist: 4 Gait Assistive Device: FWW Wheelchair (FIM): 5 Wheelchair distance (FIM): 1=804-12 ft Wheelchair Distance: 100 feet x2 Wheelchair Level of Assist: 5 PT Shelter Goals Shelter Goals PT Cement Mason Apprentice Goals Time Frame: Aug 22, 2017 Transfers (B,C,W/C) (FIM): 5 Sit to Lying (QC): 4 Lying-Sitting on Side/Bed(QC): 4 Sit to Stand (QC): 4 Rollin Roll Left to Right (QC): 4 Chair/Tps-ca-Cwnsw Xfer(QC): 4 Car Transfer (QC): 4 Does the Patient Walk: No and Walking Goal IS indicated Gait (FIM): 2 Distance: 50' Walk 10 feet (QC): 4 Walk 10ft-Uneven Surface(QC): 4 Walk 50ft with 2 Turns (QC): 4 Walk 150 ft (QC): 4 Gait Level of Assist: 5 Gait Assistive Device: FWW Does the Pt use WC or Scooter?: No Stairs (FIM): 2 # of Steps: 4 1 Step (curb) (QC): 4 4 Steps (QC): 4 12 Steps (QC): 88 Stairs Level Of Assist: 4 PT Plan Problem List Problem List: Activity Tolerance, Functional Strength, Safety, Balance, Gait, Transfer, Bed Mobility, ROM Treatment/Plan Treatment Plan: Continue Plan of Care Treatment Plan: Bed Mobility, Concurrent Therapy, Education, Functional Activity Naa, Functional Strength, Group Therapy, Gait, Safety, Therapeutic Exercise, Transfers Treatment Duration: Aug 22, 2017 Frequency: At least 5 of 7 days/Wk (IRF) Estimated Hrs Per Day: 1.5 hours per day Patient and/or Family Agrees t: Yes Safety Risks/Education Patient Education: Transfer Techniques, Correct Positioning, W/C Management, Safety Issues Teaching Recipient: Patient Teaching Methods: Demonstration, Discussion Response to Teaching: Reinforcement Needed Time/GCodes Time In: 1100 Time Out: 1145 Total Billed Treatment Time: 45 Total Billed Treatment 1 visit 15 min [facility] 30 min LISE AVALOS PT Aug 11, 2017 11:48
--- NOTE | 2017-08-11 15:17 | Therapy Group Daily Note ---
Therapy Daily Group Note Patient Education Topic Other List Below (Memory Strategies) Exercises LE Seated Exercise, UE Exercise Other/Notes Pt toilets then transfers to [facility] and is propelled to Group. PT/OT Group consisted of Introductions (Name, Where you are from & Naming a list of 3 items given for memory), Socialization, UE & LE Exercises, Education over Memory Strategies and a Couple of Memory Strategy Activities. Pt actively participated in Group by completing UE & LE Exercises as well as giving personal strategies the pt uses to help remember tasks. Pt also participated in the 2 Memory Strategy Activities as well. Pt was propelled to room to rest at the of Group with all needs met. Start Time: 13:00 Stop Time: 14:20 Total Billed Treatment Time: 80 Total Billed Treatment 1, GROUP (80m) SHERITA JAY AIRCRAFT ASSEMBLER Aug 11, 2017 15:17
[2017-08-11 18:00] VITALS: BP 148/77
[2017-08-11] MEDS: MIRTAZAPINE 15 MG (REMERON) TAB PO SCH (20:45)
[2017-08-11] MEDS: meTOprolol TARTRATE 25 MG (LOPRESSOR) TABLET PO SCH (20:46)
[2017-08-12 06:00] VITALS: BP 115/76
[2017-08-12] MEDS: PANTOPRAZOLE 20 MG TABLET (PROTONIX) PO SCH ×2 (06:02→16:20)
[2017-08-12] MEDS: PRIMIDONE 250MG (MYSOLINE) TAB PO SCH ×3 (06:02→21:07)
[2017-08-12] MEDS: METOCLOPRAMIDE 5 MG (REGLAN) TAB PO SCH ×4 (06:02→21:05)
[2017-08-12] MEDS: FAMOTIDINE 20 MG (PEPCID) TABLET PO SCH (08:11)
[2017-08-12] MEDS: LACTOBACILLUS Acidoph/Bulgar (LACTINEX/FLORANEX) TAB PO SCH (08:12)
[2017-08-12] MEDS: DULoxetine 30 MG (CYMBALTA) CAP PO SCH (08:12)
[2017-08-12] MEDS: clonazePAM 0.5 MG (KlonoPIN) TAB PO SCH ×3 (08:12→21:06)
[2017-08-12] MEDS: SENNA W/DOCUSATE (SENOKOT S) TABLET PO SCH ×2 (08:12→21:05)
[2017-08-12] MEDS: ASPIRIN E.C. 325 MG (ECOTRIN) TABLET PO SCH (08:13)
[2017-08-12] MEDS: DILTIAZEM 30 MG (CARDIZEM) TAB PO SCH ×2 (08:13→21:06)
[2017-08-12] MEDS: meTOprolol TARTRATE 50 MG (LOPRESSOR) TAB PO SCH (08:13)
--- NOTE | 2017-08-12 09:02 | Physical Therapy Daily Note ---
PT Daily Note-Current Subjective Pt is laying in bed pre tx and c/o pain at 5/10 in right knee. Pt reports having an accident last night and had to get changed. Pt states that this is the first time it has occurred. Pt agrees to PT. Pain Numeric Pain Scale: 5-Moderate Pain Location: Right Location Body Site: Knee Appearance Pt is sitting in [facility] post tx with nurse call, phone, and tray within reach. Mental Status Patient Orientation: Normal For Age Attachments: Knee Immobilizer (RLE) Transfers Functional [place] Measure 0=Not Assessed/NA 4=Minimal Assistance 1=Total Assistance 5=Supervision or Setup 2=Maximal Assistance 6=Modified [place] 3=Moderate Assistance 7=Complete IndependenceIRFPAI Quality Coding Scale 6 Independent with activity with or without an assistive device 5 Patient requires set up or clean up by helper. Patient completes activity by themselves 4 Supervision or touching assist (CGA). [place] provide cues , steadying assist 3 The helper provides less than half the effort to complete the activity 2 The helper provides more than half the effort to complete the activity 1 Dependent. The helper does all the effort to complete an activity 7 Patient refused to complete or attempt activity 9 The patient did not perform the activity before the current illness or injury 88 Not attempted due to Medical conditions or safety concerns Transfers (B, C, W/C) (FIM): 2 Scootin Rollin Supine to/from Sit: 5 Sit to/from Stand: 2 Bed to/from Chair: 2 SBA needed for rolling and supine to sit. Mod A needed for scooting. Max A necessary for sit to stand and bed to chair transfer. Weight Bearing Right Lower Extremity: Right Non Weight Bearing Left Lower Extremity: Left Full Weight Bearing Gait Training Does the Patient Walk?: No and Walking Goal IS indicated Wheelchair Training Does the Pt Use a Wheelchair?: Yes Wheelchair (FIM): 2 Distance: 120 feet x2 Wheelchair Level of Assist: 5 Type of Wheelchair: Manual Exercises Seated Therapy Exercises: Sit to stand (5 x2 from [facility] height in parallel bars) Treatments Pt performed bed mobility, functional activity, [facility] mobility. She was also toileted once and dressed lowers from the toilet when she stood. Assessment Current Status: Fair Progress As session began, pt stated she used the bathroom, so she was transferred to the commode. Pt was able to void and was dressed in order to continue tx. The first two sit to stand transfers in each set required mod A and the final three repetitions required max A. PT Short Term Goals Short Term Goals Time Frame: Aug 08, 2017 Transfers (B,C,W/C) (FIM): 3 Gait (FIM): 1 Distance (FIM): 4=462-46 ft Gait Distance Comment: 20' Gait Level of Assist: 4 Gait Assistive Device: FWW Wheelchair (FIM): 5 Wheelchair distance (FIM): 6=518-10 ft Wheelchair Distance: 150 feet x2 Wheelchair Level of Assist: 5 PT Senior Care Goals Assistant Professor Of Archaeology Goals PT Assistant Professor Of Archaeology Goals Time Frame: Aug 22, 2017 Transfers (B,C,W/C) (FIM): 5 Sit to Lying (QC): 4 Lying-Sitting on Side/Bed(QC): 4 Sit to Stand (QC): 4 Rollin Roll Left to Right (QC): 4 Chair/Qhs-cs-Gfqsj Xfer(QC): 4 Car Transfer (QC): 4 Does the Patient Walk: No and Walking Goal IS indicated Gait (FIM): 2 Distance: 50' Walk 10 feet (QC): 4 Walk 10ft-Uneven Surface(QC): 4 Walk 50ft with 2 Turns (QC): 4 Walk 150 ft (QC): 4 Gait Level of Assist: 5 Gait Assistive Device: FWW Does the Pt use WC or Scooter?: No Stairs (FIM): 2 # of Steps: 4 1 Step (curb) (QC): 4 4 Steps (QC): 4 12 Steps (QC): 88 Stairs Level Of Assist: 4 PT Plan Problem List Problem List: Activity Tolerance, Functional Strength, Safety, Balance, Gait, Transfer, Bed Mobility, ROM Treatment/Plan Treatment Plan: Continue Plan of Care Treatment Plan: Bed Mobility, Concurrent Therapy, Education, Functional Activity Ana, Functional Strength, Group Therapy, Gait, Safety, Therapeutic Exercise, Transfers Treatment Duration: Aug 22, 2017 Frequency: At least 5 of 7 days/Wk (IRF) Estimated Hrs Per Day: 1.5 hours per day Patient and/or Family Agrees t: Yes Safety Risks/Education Patient Education: Transfer Techniques, Reviewed Precautions, Correct Positioning, W/C Management, Safety Issues Teaching Recipient: Patient Teaching Methods: Demonstration, Discussion Response to Teaching: Reinforcement Needed Time/GCodes Time In: 800 Time Out: 900 Total Billed Treatment Time: 60 Total Billed Treatment 1 visit 15 min WC 30 min FA 15 min EX LISE BRUCE PT Aug 12, 2017 09:02
--- NOTE | 2017-08-12 10:44 | Speech Therapy Daily Note ---
Speech Daily Progress Note Subjective Date Seen by Provider: Aug 12, 2017 Time Seen by Provider: 09:00 The patient was seated upright in wheelchair upon entrance. The patient greeted the clinician appropriately and was agreeable to participation in the cognitive treatment session. Objective Functional Tasks ([place], Bill Counting): The patient demonstrated high accuracy with coin, bill, and coin + bill addition tasks. The patient was able to demonstrate alternating attention throughout the task, completing one question, visiting with the clinician, and easily returning to the task she was completing. To note, the patient has demonstrated improvement throughout functional tasks this week. Assessment Assessment Current Status: Good Progress Treatment Plan Continue Plan of Care Communication Comprehension: 4 Expression: 4 Social Cognition Social Interaction: 5 Problem Solvin Memory: 3 Speech Short Term Goals Short Term Goals Short Term Goals 1. The patient will complete a full cognitive evaluation with limited verbal prompting from the clinician. MET (08/05/17) 2. The patient will provide simple orientation information with 90% accuracy independently or with the use of an external aid. 3. The patient will recall two functional memory strategies for use at home. 4. The patient will demonstrate 80% accuracy with safety problem solving with mild clinician verbal cueing. Time Frame-STG: Two Weeks Speech Multi Needle Machine Operator Goals Multi Needle Machine Operator Goals 1. The patient will demonstrate improved cognitive linguistic skills for increased function and safety with ADL's. Time Frame: Three Weeks Comprehension: 5 Expression: 5 Social Interaction: 5 Problem Solvin Memory: 4 Speech-Plan Treatment Plan Speech Therapy Treatment Plan: Continue Plan of Care Continue skilled speech pathology to target functional communication and problem solving. Treatment Duration: Aug 18, 2017 Frequency: Modified Program (IRF) (Four to five times per week.) Estimated Hrs Per Day: .5 hour per day Rehab Potential: Fair Safety Risks/Education Teaching Recipient: Patient Teaching Methods: Discussion Response to Teaching: Verbalize Understanding Education Topics Provided: Functional Problem Solving, Sequencing Time Speech Therapy Time In: 09:00 Speech Therapy Time Out: 09:30 Total Billed Time: 30 Billed Treatment Time Brittanie JOSE CHAL CERONLarissaELENA ST Aug 12, 2017 10:44
--- NOTE | 2017-08-12 11:27 | Occupational Ther Daily Note ---
OT Current Status-Daily Note Subjective Pt alert, sitting in w/c. Pt agreed to therapy. No c/o pain at this time. Mental Status/Objective Patient Orientation: Person, Place, Time, Situation Functional [place] Measure 0=Not Assessed/NA 4=Minimal Assistance 1=Total Assistance 5=Supervision or Setup 2=Maximal Assistance 6=Modified [place] 3=Moderate Assistance 7=Complete [place] ADL-Treatment Functional [place] Measure 0=Not Assessed/NA 4=Minimal Assistance 1=Total Assistance 5=Supervision or Setup 2=Maximal Assistance 6=Modified [place] 3=Moderate Assistance 7=Complete IndependenceIRFPAI Quality Coding Scale 6 Independent with activity with or without an assistive device 5 Patient requires set up or clean up by helper. Patient completes activity by themselves 4 Supervision or touching assist (CGA). [place] provide cues , steadying assist 3 The helper provides less than half the effort to complete the activity 2 The helper provides more than half the effort to complete the activity 1 Dependent. The helper does all the effort to complete an activity 7 Patient refused to complete or attempt activity 9 The patient did not perform the activity before the current illness or injury 88 Not attempted due to Medical conditions or safety concerns Eating (FIM): 5 (Assist to open containers/packages then using regular utensils to feed self and cut food.) Eating (QC): 5 Grooming (FIM): 6 (Pt able to complete grooming sitting at sink.) Oral Hygiene (QC): 6 Bathing (FIM): 1 (Pt is able to bath self sitting on rolling shower chair with cutout. Assist x2 for standing to dry buttocks.) Bathing Location: L Arm, R Arm, L Upper Leg, R Upper Leg, L Lower Leg ( including foot), Chest, Abdomen, Buttocks, Perineal Area Shower/Bathe Self (QC): 1 Upper Body (FIM): 5 (After set up, pt is able to complete upper body dressing.) Upper Body Dressing (QC): 5 Lower Body Dressing (FIM): 1 (Assist x2 to hike pants over hips. Assist to don /doff pants over feet. Pt able to don/doff L sock by self.) Lower Body Dressing (QC): 1 On/Off Footwear (QC): 3 Shower Transfer(FIM): 1 (Using rolling shower chair to transfer into shower.) After therapy, pt lying in bed. Call light/phone in reach. All needs met in room. OT Short Term Goals Short Term Goals Time Frame: Aug 15, 2017 Bathing(FIM): 4 Lower Body Dressing(FIM): 3 Toileting(FIM): 3 Transfers (B,C,W/C) (FIM): 3 Toilet/Commode Transfer(FIM): 3 Additional Short Term Goals: 1-Demonstrate ADL Tasks, 2-Verbalize Understanding , 3-ImproveStrength/Ana 1=Demonstrate adherence to instructed precautions during ADL tasks. 2=Patient will verbalize/demonstrate understanding of assistive devices/ modifications for ADL. 3=Patient will improve strength/tolerance for activity to enable patient to perform ADL's. OT Care Home Goals Bundler Goals Time Frame: Aug 22, 2017 Eating (FIM): 6 Eating (QC): 6 Groomin Oral Hygiene (QC): 6 Bathing(FIM): 5 Shower/Bathe Self (QC): 5 Upper Body Dressing(FIM): 5 Upper Body Dressing (QC): 5 Lower Body Dressing(FIM): 5 Lower Body Dressing (QC): 5 On/Off Footwear (QC): 5 Toileting(FIM): 5 Toileting Hygiene (QC): 5 Toilet/Commode Transfer(FIM): 5 Toilet/Commode Transfer (QC): 5 Shower Transfer(FIM): 5 Comprehension(FIM): 5 Expression (FIM): 5 Social Interaction(FIM): 5 Problem Solving(FIM): 4 Memory(FIM): 4 Additional Goals: 1-Demonstrate ADL Tasks, 2-Verbalize Understanding, 3- ImproveStrength/Ana 1=Demonstrate adherence to instructed precautions during ADL tasks. 2=Patient will verbalize/demonstrate understanding of assistive devices/ modifications for ADL. 3=Patient will improve strength/tolerance for activity to enable patient to perform ADL's. OT Education/Plan Problem List/Assessment Pt would benefit from skilled OT to increase her independence in basic self care and to decrease caregiver burden Discharge Recommendations Plan/Recommendations: Continue POC Treatment Plan/Plan of Care Patient would benefit from OT for education, treatment and training to promote independence in ADL's, mobility, safety and/or upper extremity function for ADL' s. Plan of Care: ADL Retraining, Functional Mobility, Group Exercise/Act as Ind ( education, exercise, act tolerance, funct activities, mobility), UE Funct Exercise/Act, UE Neuromus Re-Ed/Coord Treatment Duration: Aug 22, 2017 Frequency: At least 5 of 7 days/Wk (IRF) Estimated Hrs Per Day: 1.5 hours per day Agreement: Yes Rehab Potential: Fair Time/GCodes Start Time: 09:30 Stop Time: 11:00 Total Time Billed (hr/min): 90 Billed Treatment Time 1 visit-ADL 6 (90 min) SONIA CROCKETT Aug 12, 2017 11:26
[2017-08-12] MEDS: HYDROcodone/APAP 5 MG/325 MG (LORTAB) TAB PO PRN ×3 (11:42→23:03)
--- NOTE | 2017-08-12 14:52 | Physical Therapy Daily Note ---
PT Daily Note-Current Subjective Pt is laying in bed pre tx and c/o pain at 5/10 and agrees to PT. Pain Numeric Pain Scale: 5-Moderate Pain Location: Right Location Body Site: Thigh Appearance Pt is laying in bed post tx with pillow under right leg and has nurse call, phone, and tray within reach. Mental Status Patient Orientation: Person, Place, Situation Attachments: Knee Immobilizer (RLE) Transfers Functional [place] Measure 0=Not Assessed/NA 4=Minimal Assistance 1=Total Assistance 5=Supervision or Setup 2=Maximal Assistance 6=Modified [place] 3=Moderate Assistance 7=Complete IndependenceIRFPAI Quality Coding Scale 6 Independent with activity with or without an assistive device 5 Patient requires set up or clean up by helper. Patient completes activity by themselves 4 Supervision or touching assist (CGA). [place] provide cues , steadying assist 3 The helper provides less than half the effort to complete the activity 2 The helper provides more than half the effort to complete the activity 1 Dependent. The helper does all the effort to complete an activity 7 Patient refused to complete or attempt activity 9 The patient did not perform the activity before the current illness or injury 88 Not attempted due to Medical conditions or safety concerns Transfers (B, C, W/C) (FIM): 2 Scootin Rollin Supine to/from Sit: 5 Sit to/from Stand: 2 Bed to/from Chair: 2 Pt requires max A for sit to stand and bed to chair transfer. Pt requires SBA during supine to sit transfer and requires min A to lift the RLE during sit to supine transfer. Weight Bearing Right Lower Extremity: Right Non Weight Bearing Left Lower Extremity: Left Full Weight Bearing Gait Training Does the Patient Walk?: No and Walking Goal IS indicated Wheelchair Training Does the Pt Use a Wheelchair?: Yes Wheelchair (FIM): 2 Distance: 100 feet x2 Wheelchair Level of Assist: 5 Type of Wheelchair: Manual Exercises NuStep Minutes: 10 NuStep Workload: 4 Treatments Pt performed bed mobility and WCH mobility, LE exercise and functional activity. Assessment Current Status: Fair Progress Pt bed mobility is improving. Pt was able to tolerate 10 min of NuStep at 4 workload. PT Short Term Goals Short Term Goals Time Frame: Aug 08, 2017 Transfers (B,C,W/C) (FIM): 3 Gait (FIM): 1 Distance (FIM): 0=292-95 ft Gait Distance Comment: 20' Gait Level of Assist: 4 Gait Assistive Device: FWW Wheelchair (FIM): 5 Wheelchair distance (FIM): 9=251-95 ft Wheelchair Distance: 120 feet x2 Wheelchair Level of Assist: 5 PT Cigarette Making Machine Hopper Feeder Goals [facility] Goals PT [facility] Goals Time Frame: Aug 22, 2017 Transfers (B,C,W/C) (FIM): 5 Sit to Lying (QC): 4 Lying-Sitting on Side/Bed(QC): 4 Sit to Stand (QC): 4 Rollin Roll Left to Right (QC): 4 Chair/Uqs-ft-Cumlw Xfer(QC): 4 Car Transfer (QC): 4 Does the Patient Walk: No and Walking Goal IS indicated Gait (FIM): 2 Distance: 50' Walk 10 feet (QC): 4 Walk 10ft-Uneven Surface(QC): 4 Walk 50ft with 2 Turns (QC): 4 Walk 150 ft (QC): 4 Gait Level of Assist: 5 Gait Assistive Device: FWW Does the Pt use WC or Scooter?: No Stairs (FIM): 2 # of Steps: 4 1 Step (curb) (QC): 4 4 Steps (QC): 4 12 Steps (QC): 88 Stairs Level Of Assist: 4 PT Plan Problem List Problem List: Activity Tolerance, Functional Strength, Safety, Balance, Gait, Transfer, Bed Mobility, ROM Treatment/Plan Treatment Plan: Continue Plan of Care Treatment Plan: Bed Mobility, Concurrent Therapy, Education, Functional Activity Ana, Functional Strength, Group Therapy, Gait, Safety, Therapeutic Exercise, Transfers Treatment Duration: Aug 22, 2017 Frequency: At least 5 of 7 days/Wk (IRF) Estimated Hrs Per Day: 1.5 hours per day Patient and/or Family Agrees t: Yes Safety Risks/Education Patient Education: Transfer Techniques, Correct Positioning, W/C Management, Safety Issues Teaching Recipient: Patient Teaching Methods: Demonstration, Discussion Response to Teaching: Reinforcement Needed Time/GCodes Time In: 1400 Time Out: 1430 Total Billed Treatment Time: 30 Total Billed Treatment 1 visit 10 min EX 15 min [facility] 5 min LISE AVALOS PT Aug 12, 2017 14:52
--- NOTE | 2017-08-12 17:52 | PM & R (SOAP) Progress Note ---
Subjective Time Seen by Provider: 17:50 Subjective/Events-last exam Patient was seen in her room this evening Nausea resolved with adjustment in meds Patient max assist for transfers Review of Systems Cardiovascular: Edema Musculoskeletal: leg pain Neurological: Weakness Objective Exam Last Set of Vital Signs Vital Signs Date Time Temp Pulse Resp B/P (MAP) Pulse Ox O2 Delivery O2 Flow Rate FiO2 08/12/17 09:00 Room Air 08/12/17 06:00 98.2 114 18 115/76 (89) 94 Capillary Refill : I&O Intake and Output 08/12/17 00:00 Intake Total 700 ml Balance 700 ml Intake Oral 700 ml # Voids 8 General: Alert, Oriented X3, Cooperative, No Acute Distress HEENT: Atraumatic, PERRLA, EOMI, Mucous Memb Moist/[place]: Supple, No JVD Lungs: Clear to Auscultation Heart: Regular Rate, Other (S/P pacemaker) Abdomen: Normal Bowel Sounds, Soft, No Tenderness Extremities: Other (plus edeam RT ankle > left) Neuro: Other (Weakness RT leg functional BUES and LEFT LE) Psych/Mental Status: Mental Status NL Assessment/Plan Assessment Distal RT Femur FRX s/p ORIF OSH NWB RLE Prior RT TKR Postop anemia Nausea-improved HTN Renal insufficiency Hypoalbuminemia S/P pacemanker for SSS S/P cardiac ablation Plan Continue PT/OT Venous doppler negative for DVT SCDS for DVT Prophylaxis Monitor for any further nausea Next Team Conference tomorrow 08-13-17 JACQUELINE HORNE MD Aug 12, 2017 17:52
[2017-08-12 19:05] VITALS: BP 142/84
[2017-08-12] MEDS: MIRTAZAPINE 15 MG (REMERON) TAB PO SCH (21:06)
[2017-08-12] MEDS: meTOprolol TARTRATE 25 MG (LOPRESSOR) TABLET PO SCH (21:14)
[2017-08-13] MEDS: PANTOPRAZOLE 20 MG TABLET (PROTONIX) PO SCH ×2 (06:01→16:58)
[2017-08-13] MEDS: METOCLOPRAMIDE 5 MG (REGLAN) TAB PO SCH ×4 (06:01→21:01)
[2017-08-13] MEDS: PRIMIDONE 250MG (MYSOLINE) TAB PO SCH ×3 (06:01→21:01)
[2017-08-13 06:26] VITALS: BP 138/83
[2017-08-13] MEDS: FAMOTIDINE 20 MG (PEPCID) TABLET PO SCH (08:13)
[2017-08-13] MEDS: DULoxetine 30 MG (CYMBALTA) CAP PO SCH (08:13)
[2017-08-13] MEDS: clonazePAM 0.5 MG (KlonoPIN) TAB PO SCH ×3 (08:13→21:01)
[2017-08-13] MEDS: LACTOBACILLUS Acidoph/Bulgar (LACTINEX/FLORANEX) TAB PO SCH (08:13)
[2017-08-13] MEDS: ASPIRIN E.C. 325 MG (ECOTRIN) TABLET PO SCH (08:14)
[2017-08-13] MEDS: DILTIAZEM 30 MG (CARDIZEM) TAB PO SCH ×2 (08:14→21:01)
[2017-08-13] MEDS: SENNA W/DOCUSATE (SENOKOT S) TABLET PO SCH ×2 (08:14→21:01)
[2017-08-13] MEDS: meTOprolol TARTRATE 50 MG (LOPRESSOR) TAB PO SCH (08:14)
[2017-08-13] MEDS: HYDROcodone/APAP 5 MG/325 MG (LORTAB) TAB PO PRN (09:02)
--- NOTE | 2017-08-13 09:29 | PM & R (SOAP) Progress Note ---
Subjective Time Seen by Provider: 08:00 Subjective/Events-last exam Patient was seen in her room this AM RT Foot remains swollen Patient Mod to max assist for transfers.No nausea this AM. Review of Systems Cardiovascular: Edema Objective Exam Last Set of Vital Signs Vital Signs Date Time Temp Pulse Resp B/P (MAP) Pulse Ox O2 Delivery O2 Flow Rate FiO2 08/13/17 06:26 97.6 78 18 138/83 (101) 100 Room Air Capillary Refill : I&O Intake and Output 08/13/17 00:00 Intake Total 1200 ml Balance 1200 ml Intake Oral 1200 ml # Voids 6 General: Alert, Oriented X3, Cooperative, No Acute Distress HEENT: Atraumatic, PERRLA, EOMI, Mucous Memb Moist/[employer] Neck: Supple, No JVD Lungs: Clear to Auscultation Heart: Regular Rate, Other (S/P pacemaker) Abdomen: Normal Bowel Sounds, Soft, No Tenderness Extremities: Other (plus edeam RT ankle > left) Neuro: Other (Weakness RT leg functional BUES and LEFT LE) Psych/Mental Status: Mental Status NL Assessment/Plan Assessment Distal RT Femur FRX s/p ORIF OSH NWB RLE Prior RT TKR Postop anemia Nausea-improved HTN Renal insufficiency Hypoalbuminemia S/P pacemanker for SSS S/P cardiac ablation Plan Continue PT/OT Venous doppler negative for DVT SCDS for DVT Prophylaxis Monitor for any further nausea Next Team Conference later today-See report for full functional update and POC and JACQUELINE HERNANDEZ MD Aug 13, 2017 9:29 am
--- NOTE | 2017-08-13 10:12 | Occupational Ther Daily Note ---
OT Current Status-Daily Note Subjective Pt sleeping in bed, woke easily to name. Pt agreed to therapy. No c/o pain at this time. Mental Status/Objective Patient Orientation: Person, Place, Time, Situation Functional [place] Measure 0=Not Assessed/NA 4=Minimal Assistance 1=Total Assistance 5=Supervision or Setup 2=Maximal Assistance 6=Modified [place] 3=Moderate Assistance 7=Complete [place] ADL-Treatment Min A to go from supine to sitting EOB. Max A using FWW to go from EOB to BSC. Pt completed arm chair pushup while assist to hike pants over hips completed. Pt able to complete own hygiene while sitting on toilet. Pt transferred from BSC to w/c with max A using FWW. Pt doffed/donned shirt by self after set up. Max A to don/doff pants over feet. Pt able to don/doff L sock by self. Sitting in w/c, pt able to complete all grooming by self at sink. Pt requires assist to open packages/containers for breakfast, uses regular utensils. After therapy, pt sitting in w/c with call light/phone in reach. All needs met in room. Functional [place] Measure 0=Not Assessed/NA 4=Minimal Assistance 1=Total Assistance 5=Supervision or Setup 2=Maximal Assistance 6=Modified [place] 3=Moderate Assistance 7=Complete IndependenceIRFPAI Quality Coding Scale 6 Independent with activity with or without an assistive device 5 Patient requires set up or clean up by helper. Patient completes activity by themselves 4 Supervision or touching assist (CGA). [place] provide cues , steadying assist 3 The helper provides less than half the effort to complete the activity 2 The helper provides more than half the effort to complete the activity 1 Dependent. The helper does all the effort to complete an activity 7 Patient refused to complete or attempt activity 9 The patient did not perform the activity before the current illness or injury 88 Not attempted due to Medical conditions or safety concerns Eating (FIM): 5 Eating (QC): 5 Grooming (FIM): 5 Oral Hygiene (QC): 6 Upper Body (FIM): 5 Upper Body Dressing (QC): 5 Lower Body Dressing (FIM): 2 Lower Body Dressing (QC): 2 On/Off Footwear (QC): 3 OT Short Term Goals Short Term Goals Time Frame: Aug 15, 2017 Bathing(FIM): 4 Lower Body Dressing(FIM): 3 Toileting(FIM): 3 Transfers (B,C,W/C) (FIM): 3 Toilet/Commode Transfer(FIM): 3 Additional Short Term Goals: 1-Demonstrate ADL Tasks, 2-Verbalize Understanding , 3-ImproveStrength/Ana 1=Demonstrate adherence to instructed precautions during ADL tasks. 2=Patient will verbalize/demonstrate understanding of assistive devices/ modifications for ADL. 3=Patient will improve strength/tolerance for activity to enable patient to perform ADL's. OT Intermediate Goals Aircraft Stress Analyst Goals Time Frame: Aug 22, 2017 Eating (FIM): 6 Eating (QC): 6 Groomin Oral Hygiene (QC): 6 Bathing(FIM): 5 Shower/Bathe Self (QC): 5 Upper Body Dressing(FIM): 5 Upper Body Dressing (QC): 5 Lower Body Dressing(FIM): 5 Lower Body Dressing (QC): 5 On/Off Footwear (QC): 5 Toileting(FIM): 5 Toileting Hygiene (QC): 5 Toilet/Commode Transfer(FIM): 5 Toilet/Commode Transfer (QC): 5 Shower Transfer(FIM): 5 Comprehension(FIM): 5 Expression (FIM): 5 Social Interaction(FIM): 5 Problem Solving(FIM): 4 Memory(FIM): 4 Additional Goals: 1-Demonstrate ADL Tasks, 2-Verbalize Understanding, 3- ImproveStrength/Ana 1=Demonstrate adherence to instructed precautions during ADL tasks. 2=Patient will verbalize/demonstrate understanding of assistive devices/ modifications for ADL. 3=Patient will improve strength/tolerance for activity to enable patient to perform ADL's. OT Education/Plan Problem List/Assessment Pt would benefit from skilled OT to increase her independence in basic self care and to decrease caregiver burden Discharge Recommendations Plan/Recommendations: Continue POC Treatment Plan/Plan of Care Patient would benefit from OT for education, treatment and training to promote independence in ADL's, mobility, safety and/or upper extremity function for ADL' s. Plan of Care: ADL Retraining, Functional Mobility, Group Exercise/Act as Ind ( education, exercise, act tolerance, funct activities, mobility), UE Funct Exercise/Act, UE Neuromus Re-Ed/Coord Treatment Duration: Aug 22, 2017 Frequency: At least 5 of 7 days/Wk (IRF) Estimated Hrs Per Day: 1.5 hours per day Agreement: Yes Rehab Potential: Fair Time/GCodes Start Time: 07:00 Stop Time: 08:00 Total Time Billed (hr/min): 60 Billed Treatment Time 1 visit-ADL 4 (60 min) SONIA CROCKETT Aug 13, 2017 10:12
--- NOTE | 2017-08-13 12:56 | Physical Therapy Daily Note ---
PT Daily Note-Current Subjective Pt reports she is ready to participate in therapy. Mental Status Patient Orientation: Normal For Age Transfers Functional [place] Measure 0=Not Assessed/NA 4=Minimal Assistance 1=Total Assistance 5=Supervision or Setup 2=Maximal Assistance 6=Modified [place] 3=Moderate Assistance 7=Complete IndependenceIRFPAI Quality Coding Scale 6 Independent with activity with or without an assistive device 5 Patient requires set up or clean up by helper. Patient completes activity by themselves 4 Supervision or touching assist (CGA). [place] provide cues , steadying assist 3 The helper provides less than half the effort to complete the activity 2 The helper provides more than half the effort to complete the activity 1 Dependent. The helper does all the effort to complete an activity 7 Patient refused to complete or attempt activity 9 The patient did not perform the activity before the current illness or injury 88 Not attempted due to Medical conditions or safety concerns Transfers (B, C, W/C) (FIM): 2 Supine to/from Sit: 3 Sit to/from Stand: 2 Bed to/from Chair: 3 Education to forward flex at the hip when preparing to come to standing. Instructed on wt bearing restriction. Performed stand pivot transfer x 8 during therapy session. Weight Bearing Right Lower Extremity: Right Non Weight Bearing Left Lower Extremity: Left Full Weight Bearing Wheelchair Training Does the Pt Use a Wheelchair?: Yes Wheelchair (FIM): 4 Wheelchair Distance: 3=150 ft Distance: 150 Wheelchair Level of Assist: 4 Type of Wheelchair: Manual needs verbal and minimal tactile cues for negotiating chair through tight areas. Provided patient education on how to turn the chair in tight spaces and also on foot propulsion. Exercises Supine Ex: Bridging, Ankle pumps, Quad Set, Glut sets, Heel Slides, Short Arc Quads, Scooting, Resisted flex/ext, Straight leg raise, Hip abd/add Supine Reps: 40 Seated Therapy Exercises: Sit to stand Seated Reps: 12 Provided assist as needed for (B) LE to complete 2 sets of 20 exercises. Assessment Current Status: Fair Progress Transfers are improving in regard to sequencing and strength of sit to stand PT Short Term Goals Short Term Goals Time Frame: Aug 08, 2017 Transfers (B,C,W/C) (FIM): 3 Gait (FIM): 1 Distance (FIM): 2=434-90 ft Gait Distance Comment: 20' Gait Level of Assist: 4 Gait Assistive Device: FWW Wheelchair (FIM): 5 Wheelchair distance (FIM): 9=565-58 ft Wheelchair Distance: 100 feet x2 Wheelchair Level of Assist: 5 PT Manager Consumer Goals Fpc Goals PT Manager Consumer Goals Time Frame: Aug 22, 2017 Transfers (B,C,W/C) (FIM): 5 Sit to Lying (QC): 4 Lying-Sitting on Side/Bed(QC): 4 Sit to Stand (QC): 4 Rollin Roll Left to Right (QC): 4 Chair/Mgv-ye-Gfcei Xfer(QC): 4 Car Transfer (QC): 4 Does the Patient Walk: No and Walking Goal IS indicated Gait (FIM): 2 Distance: 50' Walk 10 feet (QC): 4 Walk 10ft-Uneven Surface(QC): 4 Walk 50ft with 2 Turns (QC): 4 Walk 150 ft (QC): 4 Gait Level of Assist: 5 Gait Assistive Device: FWW Does the Pt use WC or Scooter?: No Stairs (FIM): 2 # of Steps: 4 1 Step (curb) (QC): 4 4 Steps (QC): 4 12 Steps (QC): 88 Stairs Level Of Assist: 4 PT Plan Problem List Problem List: Activity Tolerance, Gait, Transfer Treatment/Plan Treatment Plan: Continue Plan of Care Treatment Plan: Bed Mobility, Concurrent Therapy, Education, Functional Activity Ana, Functional Strength, Group Therapy, Gait, Safety, Therapeutic Exercise, Transfers Treatment Duration: Aug 22, 2017 Frequency: At least 5 of 7 days/Wk (IRF) Estimated Hrs Per Day: 1.5 hours per day Patient and/or Family Agrees t: Yes Safety Risks/Education Patient Education: Transfer Techniques, Reviewed Precautions, W/C Management Teaching Recipient: Patient Teaching Methods: Demonstration, Discussion Response to Teaching: Return Demonstration Time/GCodes Time In: 1100 Time Out: 1217 Total Billed Treatment Time: 67 Total Billed Treatment visit, FA 30min, ex 37 min, JD MOSELEY PT Aug 13, 2017 12:56
--- NOTE | 2017-08-13 14:02 | Speech Therapy Daily Note ---
Speech Daily Progress Note Subjective Date Seen by Provider: Aug 13, 2017 Time Seen by Provider: 09:30 The patient was seated upright in bed. The patient greeted the clinician appropriately and was agreeable to participation in the cognitive treatment session. Objective Functional Memory Strategies: The patient stated she keeps a calendar in her house, however, rarely places appointments or important dates on it. The patient stated her daughter keeps track of all of her appointments, as well as, her medication. In addition, the patient stated she is not required to keep on a routine any longer but "most days" are pretty similar. The patient was encouraged to keep track of her appointments on her calendar, to provide a second reminder. She was also encouraged to check her calendar each day to aid in orientation throughout the week. Orientation: The patient is consistently oriented to self, location, month, date , and year. Assessment Assessment Current Status: Good Progress Treatment Plan Continue Plan of Care Communication Comprehension: 4 Expression: 4 Social Cognition Social Interaction: 5 Problem Solvin Memory: 4 Speech Short Term Goals Short Term Goals Short Term Goals 1. The patient will complete a full cognitive evaluation with limited verbal prompting from the clinician. MET (08/05/17) 2. The patient will provide simple orientation information with 90% accuracy independently or with the use of an external aid. 3. The patient will recall two functional memory strategies for use at home. 4. The patient will demonstrate 80% accuracy with safety problem solving with mild clinician verbal cueing. Time Frame-STG: Two Weeks Speech Snf Goals Snf Goals 1. The patient will demonstrate improved cognitive linguistic skills for increased function and safety with ADL's. Time Frame: Three Weeks Comprehension: 5 Expression: 5 Social Interaction: 5 Problem Solvin Memory: 4 Speech-Plan Treatment Plan Speech Therapy Treatment Plan: Continue Plan of Care Continue skilled speech pathology to target functional memory strategies and problem solving. Treatment Duration: Aug 18, 2017 Frequency: Modified Program (IRF) (Four to five times per week.) Estimated Hrs Per Day: .5 hour per day Rehab Potential: Fair Safety Risks/Education Teaching Recipient: Patient Teaching Methods: Discussion Response to Teaching: Verbalize Understanding Education Topics Provided: Orientation Strategies Time Speech Therapy Time In: 09:30 Speech Therapy Time Out: 10:00 Total Billed Time: 30 Billed Treatment Time 1QUIN ELIZABETH ST Aug 13, 2017 14:02
--- NOTE | 2017-08-13 15:00 | Therapy Group Daily Note ---
Therapy Daily Group Note Patient Education Topic Energy Cons Exercises LE Seated Exercise, UE Exercise Other/Notes Pt transported to therapy gym via w/c for OT/PT group. Group consisted of introductions (name, place living, how many siblings), socialization, UE/LE seated exercises, breathing exercises, prevention education (blood clots, pneumonia, skin break down, work simplification and energy conservation education. Pt was able to appropriately introduce self and actively listening to peers. Pt socialized and contributed to group conversations. Pt completed UE/LE seated exercises, R LE increased difficulty for AROM. Pt verbalized understanding of educational topics by giving strategies and asking questions pertaining to topics. Pt was able to complete trivia activity that promoted critical thinking and problem solving. After therapy, pt sitting on BSC with call light/phone in reach. Nrsg notified. All needs met in room. Start Time: 13:00 Stop Time: 14:25 Total Billed Treatment Time: 85 Total Billed Treatment 1-GRP SONIA CROCKETT Aug 13, 2017 15:00
[2017-08-13 18:18] VITALS: BP 138/95
[2017-08-13] MEDS: meTOprolol TARTRATE 25 MG (LOPRESSOR) TABLET PO SCH (21:01)
[2017-08-13] MEDS: MIRTAZAPINE 15 MG (REMERON) TAB PO SCH (21:01)
[2017-08-14] MEDS: PRIMIDONE 250MG (MYSOLINE) TAB PO SCH ×3 (06:07→20:33)
[2017-08-14] MEDS: METOCLOPRAMIDE 5 MG (REGLAN) TAB PO SCH ×4 (06:08→20:34)
[2017-08-14] MEDS: PANTOPRAZOLE 20 MG TABLET (PROTONIX) PO SCH ×2 (06:08→16:55)
[2017-08-14 06:09] VITALS: BP 100/66
[2017-08-14] MEDS: LACTOBACILLUS Acidoph/Bulgar (LACTINEX/FLORANEX) TAB PO SCH (08:27)
[2017-08-14 08:28] VITALS: BP 127/65
[2017-08-14] MEDS: DILTIAZEM 30 MG (CARDIZEM) TAB PO SCH ×2 (08:28→20:32)
[2017-08-14] MEDS: DULoxetine 30 MG (CYMBALTA) CAP PO SCH (08:28)
[2017-08-14] MEDS: clonazePAM 0.5 MG (KlonoPIN) TAB PO SCH ×3 (08:28→20:31)
[2017-08-14] MEDS: meTOprolol TARTRATE 50 MG (LOPRESSOR) TAB PO SCH (08:28)
[2017-08-14] MEDS: ASPIRIN E.C. 325 MG (ECOTRIN) TABLET PO SCH (08:28)
[2017-08-14] MEDS: SENNA W/DOCUSATE (SENOKOT S) TABLET PO SCH ×2 (08:28→20:33)
[2017-08-14] MEDS: FAMOTIDINE 20 MG (PEPCID) TABLET PO SCH (08:28)
[2017-08-14] MEDS: HYDROcodone/APAP 5 MG/325 MG (LORTAB) TAB PO PRN (08:29)
[2017-08-14] MEDS: ONDANSETRON 4 MG (ZOFRAN) ORAL DISSOLVE TAB PO PRN (08:57)
--- NOTE | 2017-08-14 09:06 | PM & R (SOAP) Progress Note ---
Subjective Time Seen by Provider: 08:25 Subjective/Events-last exam Patient was seen in her room this AM No Nausea this AM Ray out yesterday/ Patieny Mod to max assist for transfers Review of Systems Cardiovascular: Edema Musculoskeletal: leg pain Objective Exam Last Set of Vital Signs Vital Signs Date Time Temp Pulse Resp B/P (MAP) Pulse Ox O2 Delivery O2 Flow Rate FiO2 08/14/17 06:09 98.1 82 18 100/66 (77) 96 Room Air Capillary Refill : I&O Intake and Output 08/13/17 23:59 Intake Total 1050 ml Balance 1050 ml Intake Oral 1050 ml # Voids 10 General: Alert, Oriented X3, Cooperative, No Acute Distress HEENT: Atraumatic, PERRLA, EOMI, Mucous Memb Moist/[place] Neck: Supple, No JVD Lungs: Clear to Auscultation Heart: Regular Rate, Other (S/P pacemaker) Abdomen: Normal Bowel Sounds, Soft, No Tenderness Extremities: Other (plus edeam RT ankle > left) Neuro: Other (Weakness RT leg functional BUES and LEFT LE) Psych/Mental Status: Mental Status NL Assessment/Plan Assessment Distal RT Femur FRX s/p ORIF OSH NWB RLE Prior RT TKR Postop anemia Nausea-improved HTN Renal insufficiency Hypoalbuminemia S/P pacemanker for SSS S/P cardiac ablation Plan Continue PT/OT Venous doppler negative for DVT SCDS for DVT Prophylaxis Monitor for any further nausea Team Conference held yesterday-See report for full functional update and POC and ELOS Discharge to a SNU in patients home community planned for tomorrow --will confirm with JACQUELINE KENNEDY MD Aug 14, 2017 09:05
--- NOTE | 2017-08-14 09:31 | Speech Therapy Daily Note ---
Speech Daily Progress Note Subjective Date Seen by Provider: Aug 14, 2017 Time Seen by Provider: 08:30 The patient was seated upright in bed upon entrance. The patient reported nausea , however, was agreeable to participation in the cognitive treatment session. The patient's RN was notified and provided the patient with medication to aid in a reduction of her reported nausea. Objective Word-Finding: The patient was provided three words that "fit into" a specific category. The patient was asked to identify the category and provide a fourth word. The patient demonstrated high accuracy with this task, completing the task with higher than 90% accuracy with mild clinician verbal cueing. Assessment Assessment Current Status: Good Progress Treatment Plan Continue Plan of Care Communication Comprehension: 4 Expression: 4 Social Cognition Social Interaction: 5 Problem Solvin Memory: 4 Speech Short Term Goals Short Term Goals Short Term Goals 1. The patient will complete a full cognitive evaluation with limited verbal prompting from the clinician. MET (08/05/17) 2. The patient will provide simple orientation information with 90% accuracy independently or with the use of an external aid. 3. The patient will recall two functional memory strategies for use at home. 4. The patient will demonstrate 80% accuracy with safety problem solving with mild clinician verbal cueing. Time Frame-STG: Two Weeks Speech Usp Goals Chuck Tender Goals 1. The patient will demonstrate improved cognitive linguistic skills for increased function and safety with ADL's. Time Frame: Three Weeks Comprehension: 5 Expression: 5 Social Interaction: 5 Problem Solvin Memory: 4 Speech-Plan Treatment Plan Speech Therapy Treatment Plan: Continue Plan of Care Continue skilled speech pathology to target functional communication and problem solving. Treatment Duration: Aug 18, 2017 Frequency: Modified Program (IRF) (Four to five times per week.) Estimated Hrs Per Day: .5 hour per day Rehab Potential: Fair Safety Risks/Education Teaching Recipient: Patient Teaching Methods: Discussion Response to Teaching: Verbalize Understanding Education Topics Provided: Word-Finding Strategies Time Speech Therapy Time In: 08:30 Speech Therapy Time Out: 09:00 Total Billed Time: 30 Billed Treatment Time 1 QUIN CERONLarissaELENA Aug 14, 2017 09:31
--- NOTE | 2017-08-14 12:15 | Physical Therapy Daily Note ---
PT Daily Note-Current Subjective Pt laying Supine in bed upon arrival. Pt reports feeling increase in fatigue since showering and had an increase in numbness/tingling in LLE. Pt agrees to PT. Pain Numeric Pain Scale: 5-Moderate Pain Location: Left Location Body Site: Thigh Pain Description: Tingling, Numbness Mental Status Patient Orientation: Person, Place, Time, Situation Attachments: Other-See Comments (R knee Immobilizer) Transfers Functional [place] Measure 0=Not Assessed/NA 4=Minimal Assistance 1=Total Assistance 5=Supervision or Setup 2=Maximal Assistance 6=Modified [place] 3=Moderate Assistance 7=Complete IndependenceIRFPAI Quality Coding Scale 6 Independent with activity with or without an assistive device 5 Patient requires set up or clean up by helper. Patient completes activity by themselves 4 Supervision or touching assist (CGA). [place] provide cues , steadying assist 3 The helper provides less than half the effort to complete the activity 2 The helper provides more than half the effort to complete the activity 1 Dependent. The helper does all the effort to complete an activity 7 Patient refused to complete or attempt activity 9 The patient did not perform the activity before the current illness or injury 88 Not attempted due to Medical conditions or safety concerns Transfers (B, C, W/C) (FIM): 2 Scootin Rollin Roll Left to Right (QC): 4 Supine to/from Sit: 4 Sit to/from Stand: 2 Sit to Lying (QC): 3 Sit to Stand (QC): 2 Chair/Mlk-ir-Sgwes Xfer(QC): 2 Bed to/from Chair: 2 Car Transfer (QC): 88 it is not medically safe to complete car transfer at this time due to lack of independence pt is displaying. Weight Bearing Right Lower Extremity: Right Non Weight Bearing Left Lower Extremity: Left Full Weight Bearing Stair Training Stairs (FIM): 88 Pt is unable to complete at this time to due to inability to balance. Balance Picking up an Object (QC): 88 Special Test Comments Pt is unsafe to complete this task at this time due to inability to balance & WB. Exercises Supine Ex: Ankle pumps, Quad Set, Glut sets, Heel Slides, Straight leg raise, Hip abd/add Supine Reps: 20 Treatments Pt completes Supine Ex in bed with several rest breaks. Pt completes bed mobility. Pt is also repositioned so RLE is less IR. Pt and XM1 TANK DRIVER discuss why PT is important and what is expected at discharge since weekly meeting yesterday. Pt also reports needing to use BSC. Pt transfers from Supine to EOB at CGA then EOB to standing at Mod-Max A to BSC then back to bed. Pt resting Supine in bed at end of tx with all needs met. Assessment Current Status: Good Progress Pt is limited by RLE NWB status as well as fatigue and weakness. PT Short Term Goals Short Term Goals Time Frame: Aug 08, 2017 Transfers (B,C,W/C) (FIM): 3 Gait (FIM): 1 Distance (FIM): 8=166-42 ft Gait Distance Comment: 20' Gait Level of Assist: 4 Gait Assistive Device: FWW Wheelchair (FIM): 5 Wheelchair distance (FIM): 9=928-83 ft Wheelchair Distance: 150 Wheelchair Level of Assist: 5 PT Assisted Goals Assisted Goals PT Home Care Attendant Goals Time Frame: Aug 22, 2017 Transfers (B,C,W/C) (FIM): 5 Sit to Lying (QC): 4 Lying-Sitting on Side/Bed(QC): 4 Sit to Stand (QC): 4 Rollin Roll Left to Right (QC): 4 Chair/Ydt-oj-Tenkk Xfer(QC): 4 Car Transfer (QC): 4 Does the Patient Walk: No and Walking Goal IS indicated Gait (FIM): 2 Distance: 50' Walk 10 feet (QC): 4 Walk 10ft-Uneven Surface(QC): 4 Walk 50ft with 2 Turns (QC): 4 Walk 150 ft (QC): 4 Gait Level of Assist: 5 Gait Assistive Device: FWW Does the Pt use WC or Scooter?: No Stairs (FIM): 2 # of Steps: 4 1 Step (curb) (QC): 4 4 Steps (QC): 4 12 Steps (QC): 88 Stairs Level Of Assist: 4 PT Plan Problem List Problem List: Activity Tolerance, Functional Strength, Safety, Balance, Gait, Transfer, Bed Mobility Treatment/Plan Treatment Plan: Continue Plan of Care Treatment Plan: Bed Mobility, Concurrent Therapy, Education, Functional Activity Ana, Functional Strength, Group Therapy, Gait, Safety, Therapeutic Exercise, Transfers Treatment Duration: Aug 22, 2017 Frequency: At least 5 of 7 days/Wk (IRF) Estimated Hrs Per Day: 1.5 hours per day Patient and/or Family Agrees t: Yes Safety Risks/Education Patient Education: Transfer Techniques, Correct Positioning, Safety Issues Teaching Recipient: Patient Teaching Methods: Discussion Response to Teaching: Verbalize Understanding Time/GCodes Time In: 1100 Time Out: 1200 Total Billed Treatment Time: 60 Total Billed Treatment 1, EX x2 (30m) & FA x2 (30m) SHERITA JAY PTA Aug 14, 2017 12:15
--- NOTE | 2017-08-14 12:37 | Occupational Ther Daily Note ---
OT Current Status-Daily Note Subjective Pt alert, lying in bed. Pt agreed to therapy. No c/o pain. Mental Status/Objective Patient Orientation: Person, Place, Time, Situation Functional [place] Measure 0=Not Assessed/NA 4=Minimal Assistance 1=Total Assistance 5=Supervision or Setup 2=Maximal Assistance 6=Modified [place] 3=Moderate Assistance 7=Complete [place] ADL-Treatment Functional [place] Measure 0=Not Assessed/NA 4=Minimal Assistance 1=Total Assistance 5=Supervision or Setup 2=Maximal Assistance 6=Modified [place] 3=Moderate Assistance 7=Complete IndependenceIRFPAI Quality Coding Scale 6 Independent with activity with or without an assistive device 5 Patient requires set up or clean up by helper. Patient completes activity by themselves 4 Supervision or touching assist (CGA). [place] provide cues , steadying assist 3 The helper provides less than half the effort to complete the activity 2 The helper provides more than half the effort to complete the activity 1 Dependent. The helper does all the effort to complete an activity 7 Patient refused to complete or attempt activity 9 The patient did not perform the activity before the current illness or injury 88 Not attempted due to Medical conditions or safety concerns Eating (FIM): 5 (Assist to open containers and packages. Uses regular utensils to cut food and feed self.) Eating (QC): 5 Grooming (FIM): 6 (Sitting in front of sink, pt is able to complete all grooming by self.) Oral Hygiene (QC): 6 Bathing (FIM): 4 (Sitting on rolling shower chair with cutout, pt is able to reach all areas to bathe. Assist to dry buttocks.) Bathing Location: L Arm, R Arm, L Upper Leg, R Upper Leg, L Lower Leg ( including foot), R Lower Leg (including foot), Chest, Abdomen, Buttocks, Perineal Area Shower/Bathe Self (QC): 3 Upper Body (FIM): 5 (After set up, pt is able to complete by self.) Upper Body Dressing (QC): 5 Lower Body Dressing (FIM): 2 (Pt is able to don/doff socks. Pt unable to complete donning/doffing pants/briefs by self. Pt can bridge with L LE to hike over hips in bed. Pt can hold self up on BS with L foot on the floor and B UE pushing up from arms then assist to hike pants over hips.) Lower Body Dressing (QC): 2 On/Off Footwear (QC): 4 (Pt is able to don/doff socks on L foot, R LE in brace unable to bend to reach foot.) Toileting (FIM): 1 (Per nrsg report, pt able to cleanse self on toilet then assist x2 to manipulate clothing and stand.) Toileting Hygiene (QC): 1 Toilet/Commode Transfer (FIM): 2 (Using FWW, pt is able to complete transfer with max A.) Toilet Transfer (QC): 2 Shower Transfer(FIM): 1 (Using rolling shower chair to transfer into shower.) Other Treatment Pt c/o L LE being numb and unable to move it during transfer. After lying in bed for a few minutes, pt stated that it is feeling better. Pt is able to assist with bed mobility. After therapy, pt lying in bed with call light/phone in reach. All needs met in room. OT Short Term Goals Short Term Goals Time Frame: Aug 15, 2017 Bathing(FIM): 4 Lower Body Dressing(FIM): 3 Toileting(FIM): 3 Transfers (B,C,W/C) (FIM): 3 Toilet/Commode Transfer(FIM): 3 Additional Short Term Goals: 1-Demonstrate ADL Tasks, 2-Verbalize Understanding , 3-ImproveStrength/Ana 1=Demonstrate adherence to instructed precautions during ADL tasks. 2=Patient will verbalize/demonstrate understanding of assistive devices/ modifications for ADL. 3=Patient will improve strength/tolerance for activity to enable patient to perform ADL's. OT [place] Crew Goals [place] [employer] Goals Time Frame: Aug 22, 2017 Eating (FIM): 6 Eating (QC): 6 Groomin Oral Hygiene (QC): 6 Bathing(FIM): 5 Shower/Bathe Self (QC): 5 Upper Body Dressing(FIM): 5 Upper Body Dressing (QC): 5 Lower Body Dressing(FIM): 5 Lower Body Dressing (QC): 5 On/Off Footwear (QC): 5 Toileting(FIM): 5 Toileting Hygiene (QC): 5 Toilet/Commode Transfer(FIM): 5 Toilet/Commode Transfer (QC): 5 Shower Transfer(FIM): 5 Comprehension(FIM): 5 Expression (FIM): 5 Social Interaction(FIM): 5 Problem Solving(FIM): 4 Memory(FIM): 4 Additional Goals: 1-Demonstrate ADL Tasks, 2-Verbalize Understanding, 3- ImproveStrength/Ana 1=Demonstrate adherence to instructed precautions during ADL tasks. 2=Patient will verbalize/demonstrate understanding of assistive devices/ modifications for ADL. 3=Patient will improve strength/tolerance for activity to enable patient to perform ADL's. OT Education/Plan Problem List/Assessment Pt would benefit from skilled OT to increase her independence in basic self care and to decrease caregiver burden Discharge Recommendations Plan/Recommendations: Continue POC Treatment Plan/Plan of Care Patient would benefit from OT for education, treatment and training to promote independence in ADL's, mobility, safety and/or upper extremity function for ADL' s. Plan of Care: ADL Retraining, Functional Mobility, Group Exercise/Act as Ind ( education, exercise, act tolerance, funct activities, mobility), UE Funct Exercise/Act, UE Neuromus Re-Ed/Coord Treatment Duration: Aug 22, 2017 Frequency: At least 5 of 7 days/Wk (IRF) Estimated Hrs Per Day: 1.5 hours per day Agreement: Yes Rehab Potential: Fair Time/GCodes Start Time: 09:00 Stop Time: 10:30 Total Time Billed (hr/min): 90 Billed Treatment Time 1 visit-ADL 6 (90 min) SONIA CROCKETT Aug 14, 2017 12:37
[2017-08-14 19:21] VITALS: BP 102/53
[2017-08-14] MEDS: MIRTAZAPINE 15 MG (REMERON) TAB PO SCH (20:32)
[2017-08-14] MEDS: meTOprolol TARTRATE 25 MG (LOPRESSOR) TABLET PO SCH (20:32)
[2017-08-15] MEDS: METOCLOPRAMIDE 5 MG (REGLAN) TAB PO SCH ×4 (04:45→20:55)
[2017-08-15] MEDS: PANTOPRAZOLE 20 MG TABLET (PROTONIX) PO SCH ×2 (04:45→17:03)
[2017-08-15] MEDS: PRIMIDONE 250MG (MYSOLINE) TAB PO SCH ×3 (04:46→21:01)
[2017-08-15] MEDS: HYDROcodone/APAP 5 MG/325 MG (LORTAB) TAB PO PRN ×2 (04:46→14:26)
[2017-08-15 05:19] VITALS: BP 89/58
[2017-08-15] MEDS: ASPIRIN E.C. 325 MG (ECOTRIN) TABLET PO SCH (08:04)
[2017-08-15] MEDS: LACTOBACILLUS Acidoph/Bulgar (LACTINEX/FLORANEX) TAB PO SCH (08:04)
[2017-08-15] MEDS: FAMOTIDINE 20 MG (PEPCID) TABLET PO SCH (08:04)
[2017-08-15] MEDS: DILTIAZEM 30 MG (CARDIZEM) TAB PO SCH ×2 (08:04→20:55)
[2017-08-15] MEDS: DULoxetine 30 MG (CYMBALTA) CAP PO SCH (08:04)
[2017-08-15] MEDS: clonazePAM 0.5 MG (KlonoPIN) TAB PO SCH ×3 (08:04→20:55)
[2017-08-15] MEDS: meTOprolol TARTRATE 50 MG (LOPRESSOR) TAB PO SCH (08:04)
[2017-08-15] MEDS: SENNA W/DOCUSATE (SENOKOT S) TABLET PO SCH ×2 (08:05→20:56)
--- NOTE | 2017-08-15 09:29 | Speech Therapy Daily Note ---
Speech Daily Progress Note Subjective Date Seen by Provider: Aug 15, 2017 Time Seen by Provider: 08:30 The patient was seated upright in bed upon entrance. The patient denied nausea on this date and was agreeable to cognitive treatment therapy. Objective Word-Finding: The patient was provided three words that "fit into" a specific category. The patient was asked to identify the category and provide a fourth word. The patient demonstrated slightly reduced accuracy with this task, completing the task with 80% accuracy with mild to moderate clinician verbal cueing. Orientation: The patient was oriented to month and day of week, however, was unable to state the year "1999, no 2007." Assessment Assessment Current Status: Fair Progress Treatment Plan Continue Plan of Care Communication Comprehension: 4 Expression: 4 Social Cognition Social Interaction: 5 Problem Solvin Memory: 4 Speech Short Term Goals Short Term Goals Short Term Goals 1. The patient will complete a full cognitive evaluation with limited verbal prompting from the clinician. MET (08/05/17) 2. The patient will provide simple orientation information with 90% accuracy independently or with the use of an external aid. 3. The patient will recall two functional memory strategies for use at home. 4. The patient will demonstrate 80% accuracy with safety problem solving with mild clinician verbal cueing. Time Frame-STG: Two Weeks Speech Transcription Manager Goals Transcription Manager Goals 1. The patient will demonstrate improved cognitive linguistic skills for increased function and safety with ADL's. Time Frame: Three Weeks Comprehension: 5 Expression: 5 Social Interaction: 5 Problem Solvin Memory: 4 Speech-Plan Treatment Plan Speech Therapy Treatment Plan: Continue Plan of Care Continue skilled speech pathology to target functional problem solving, expressive communication, and memory. Treatment Duration: Aug 18, 2017 Frequency: Modified Program (IRF) (Four to five times per week.) Estimated Hrs Per Day: .5 hour per day Rehab Potential: Fair Safety Risks/Education Teaching Recipient: Patient Teaching Methods: Discussion Response to Teaching: Verbalize Understanding Education Topics Provided: Orientation Techniques (External Aids) Time Speech Therapy Time In: 08:30 Speech Therapy Time Out: 09:00 Total Billed Time: 30 Billed Treatment Time QUIN Gu ELIZABETH Aug 15, 2017 09:29
--- NOTE | 2017-08-15 09:30 | PM & R (SOAP) Progress Note ---
Subjective Time Seen by Provider: 08:25 Subjective/Events-last exam Patient was seen in her room this AM Patient set for discharge to SNU on Friday08-18-17 for ongoing care and therapies.Patient Mod assist for transfers Objective Exam Last Set of Vital Signs Vital Signs Date Time Temp Pulse Resp B/P (MAP) Pulse Ox O2 Delivery O2 Flow Rate FiO2 08/15/17 05:19 97.7 76 16 89/58 (68) 96 Room Air Capillary Refill : I&O Intake and Output 08/15/17 00:00 Intake Total 1740 ml Balance 1740 ml Intake Oral 1740 ml # Voids 14 # Bowel Movements 4 General: Alert, Oriented X3, Cooperative, No Acute Distress HEENT: Atraumatic, PERRLA, EOMI, Mucous Memb Moist/[place]: Supple, No JVD Lungs: Clear to Auscultation Heart: Regular Rate, Other (S/P pacemaker) Abdomen: Normal Bowel Sounds, Soft, No Tenderness Extremities: Other (distal edema in ankle decreasing) Neuro: Other (Weakness RT leg functional BUES and LEFT LE) Psych/Mental Status: Mental Status NL Assessment/Plan Assessment Distal RT Femur FRX s/p ORIF OSH NWB RLE Prior RT TKR Postop anemia Nausea-improved HTN Renal insufficiency Hypoalbuminemia S/P pacemanker for SSS S/P cardiac ablation Plan Continue PT/OT Venous doppler negative for DVT SCDS for DVT Prophylaxis Monitor for any further nausea Team Conference held 08-13-17-See report for full functional update and POC and ELOS Discharge to a SNU in patients home community planned for 08-18-17 [facility] reviewed JACQUELINE HORNE MD Aug 15, 2017 09:30
[2017-08-15] MEDS ORDERED: ACHD5005 PO (09:35)
[2017-08-15] MEDS ORDERED: CLON0.5T3 PO (09:35)
[2017-08-15] MEDS ORDERED: PANT20TA3 PO (09:35)
[2017-08-15] MEDS ORDERED: PRIM250T PO (09:35)
--- NOTE | 2017-08-15 11:13 | Occupational Ther Daily Note ---
OT Current Status-Daily Note Subjective Pt alert, lying in bed. Pt agreed to therapy. Pt requested shower today. No c /o pain at this time. Mental Status/Objective Patient Orientation: Person, Place, Time, Situation Functional [place] Measure 0=Not Assessed/NA 4=Minimal Assistance 1=Total Assistance 5=Supervision or Setup 2=Maximal Assistance 6=Modified [place] 3=Moderate Assistance 7=Complete [place] ADL-Treatment Functional [place] Measure 0=Not Assessed/NA 4=Minimal Assistance 1=Total Assistance 5=Supervision or Setup 2=Maximal Assistance 6=Modified [place] 3=Moderate Assistance 7=Complete IndependenceIRFPAI Quality Coding Scale 6 Independent with activity with or without an assistive device 5 Patient requires set up or clean up by helper. Patient completes activity by themselves 4 Supervision or touching assist (CGA). [place] provide cues , steadying assist 3 The helper provides less than half the effort to complete the activity 2 The helper provides more than half the effort to complete the activity 1 Dependent. The helper does all the effort to complete an activity 7 Patient refused to complete or attempt activity 9 The patient did not perform the activity before the current illness or injury 88 Not attempted due to Medical conditions or safety concerns Grooming (FIM): 6 (Sitting in w/c, pt is able to complete own grooming.) Oral Hygiene (QC): 6 Bathing (FIM): 4 (Sitting on rolling shower chair with cutout, pt is able to complete all bathing. Assistance to dry foot and buttocks. Pt needs to have cutout to be able to reach buttocks, unable to stand and cleanse self.) Bathing Location: L Arm, R Arm, L Upper Leg, R Upper Leg, L Lower Leg ( including foot), R Lower Leg (including foot), Chest, Abdomen, Buttocks, Perineal Area Shower/Bathe Self (QC): 4 Upper Body (FIM): 5 (After set up, pt is able to complete donning/doffing shirt.) Upper Body Dressing (QC): 5 Lower Body Dressing (FIM): 1 (Assist to don/doff over feet then assist x2 to stand and hike pants over hips.) Lower Body Dressing (QC): 1 On/Off Footwear (QC): 3 Shower Transfer(FIM): 1 After therapy, pt sitting in w/c with call light/phone in reach. All needs met in room. OT Short Term Goals Short Term Goals Time Frame: Aug 15, 2017 Bathing(FIM): 4 Lower Body Dressing(FIM): 3 Toileting(FIM): 3 Transfers (B,C,W/C) (FIM): 3 Toilet/Commode Transfer(FIM): 3 Additional Short Term Goals: 1-Demonstrate ADL Tasks, 2-Verbalize Understanding , 3-ImproveStrength/Ana 1=Demonstrate adherence to instructed precautions during ADL tasks. 2=Patient will verbalize/demonstrate understanding of assistive devices/ modifications for ADL. 3=Patient will improve strength/tolerance for activity to enable patient to perform ADL's. OT Half-Way Goals Half-Way Goals Time Frame: Aug 22, 2017 Eating (FIM): 6 Eating (QC): 6 Groomin Oral Hygiene (QC): 6 Bathing(FIM): 5 Shower/Bathe Self (QC): 5 Upper Body Dressing(FIM): 5 Upper Body Dressing (QC): 5 Lower Body Dressing(FIM): 5 Lower Body Dressing (QC): 5 On/Off Footwear (QC): 5 Toileting(FIM): 5 Toileting Hygiene (QC): 5 Toilet/Commode Transfer(FIM): 5 Toilet/Commode Transfer (QC): 5 Shower Transfer(FIM): 5 Comprehension(FIM): 5 Expression (FIM): 5 Social Interaction(FIM): 5 Problem Solving(FIM): 4 Memory(FIM): 4 Additional Goals: 1-Demonstrate ADL Tasks, 2-Verbalize Understanding, 3- ImproveStrength/Ana 1=Demonstrate adherence to instructed precautions during ADL tasks. 2=Patient will verbalize/demonstrate understanding of assistive devices/ modifications for ADL. 3=Patient will improve strength/tolerance for activity to enable patient to perform ADL's. OT Education/Plan Problem List/Assessment Pt would benefit from skilled OT to increase her independence in basic self care and to decrease caregiver burden Discharge Recommendations Plan/Recommendations: Continue POC Treatment Plan/Plan of Care Patient would benefit from OT for education, treatment and training to promote independence in ADL's, mobility, safety and/or upper extremity function for ADL' s. Plan of Care: ADL Retraining, Functional Mobility, Group Exercise/Act as Ind ( education, exercise, act tolerance, funct activities, mobility), UE Funct Exercise/Act, UE Neuromus Re-Ed/Coord Treatment Duration: Aug 22, 2017 Frequency: At least 5 of 7 days/Wk (IRF) Estimated Hrs Per Day: 1.5 hours per day Agreement: Yes Rehab Potential: Fair Time/GCodes Start Time: 09:00 Stop Time: 10:00 Total Time Billed (hr/min): 60 Billed Treatment Time 1 visit-ADL 4 (60 min) SONIA CROCKETT Aug 15, 2017 11:13
--- NOTE | 2017-08-15 11:18 | Physical Therapy Daily Note ---
PT Daily Note-Current Subjective Pt in w/c having just finished her bath training with OT. She has no complaint and is ready to start PT. Mental Status Patient Orientation: Normal For Age Attachments: Knee Immobilizer Transfers Functional [place] Measure 0=Not Assessed/NA 4=Minimal Assistance 1=Total Assistance 5=Supervision or Setup 2=Maximal Assistance 6=Modified [place] 3=Moderate Assistance 7=Complete IndependenceIRFPAI Quality Coding Scale 6 Independent with activity with or without an assistive device 5 Patient requires set up or clean up by helper. Patient completes activity by themselves 4 Supervision or touching assist (CGA). [place] provide cues , steadying assist 3 The helper provides less than half the effort to complete the activity 2 The helper provides more than half the effort to complete the activity 1 Dependent. The helper does all the effort to complete an activity 7 Patient refused to complete or attempt activity 9 The patient did not perform the activity before the current illness or injury 88 Not attempted due to Medical conditions or safety concerns Transfers (B, C, W/C) (FIM): 2 Rollin Supine to/from Sit: 3 Sit to/from Stand: 2 Bed to/from Chair: 2 Educated on transfer sequence, rolling technique, and use of UE for sit to stand. needs greater than 75% physical assist to come to standing. Weight Bearing Right Lower Extremity: Right Non Weight Bearing Left Lower Extremity: Left Full Weight Bearing Wheelchair Training Does the Pt Use a Wheelchair?: Yes Wheelchair (FIM): 4 Wheelchair Distance: 3=150 ft Distance: 150 Wheelchair Level of Assist: 4 Type of Wheelchair: Manual Educated on w/c management including brakes and making zero turns by moving one arm forward and one backward. Self propelled 150ft x 2 trials with min assist to negotiate tight turns in the room. Exercises Supine Ex: Bridging, Ankle pumps, Quad Set, Rolling, Glut sets, Lower trunk rotation, Heel Slides, Knee to chest, Short Arc Quads, Scooting, Resisted flex/ ext, Hip abd/add Supine Reps: 20 Modified exercise for the right LE. Worked on strength program that facilitates improved transfers and bed mobility. Assessment Current Status: Fair Progress Pt did show improvement with w/c management. Sit to stands in parallel bars were improved with patient able to come to stand with moderate assist and maintain for 4 minutes. She will benefit from continued therapy. PT Short Term Goals Short Term Goals Time Frame: Aug 08, 2017 Transfers (B,C,W/C) (FIM): 3 Gait (FIM): 1 Distance (FIM): 6=323-64 ft Gait Distance Comment: 20' Gait Level of Assist: 4 Gait Assistive Device: FWW Wheelchair (FIM): 5 Wheelchair distance (FIM): 7=899-55 ft Wheelchair Distance: 150 Wheelchair Level of Assist: 5 PT Systems Integration Manager Goals Nursing Home Goals PT Nursing Home Goals Time Frame: Aug 22, 2017 Transfers (B,C,W/C) (FIM): 5 Sit to Lying (QC): 4 Lying-Sitting on Side/Bed(QC): 4 Sit to Stand (QC): 4 Rollin Roll Left to Right (QC): 4 Chair/Suh-jx-Dbrwc Xfer(QC): 4 Car Transfer (QC): 4 Does the Patient Walk: No and Walking Goal IS indicated Gait (FIM): 2 Distance: 50' Walk 10 feet (QC): 4 Walk 10ft-Uneven Surface(QC): 4 Walk 50ft with 2 Turns (QC): 4 Walk 150 ft (QC): 4 Gait Level of Assist: 5 Gait Assistive Device: FWW Does the Pt use WC or Scooter?: No Stairs (FIM): 2 # of Steps: 4 1 Step (curb) (QC): 4 4 Steps (QC): 4 12 Steps (QC): 88 Stairs Level Of Assist: 4 PT Plan Problem List Problem List: Activity Tolerance, Balance, Transfer, Bed Mobility Treatment/Plan Treatment Plan: Continue Plan of Care Treatment Plan: Bed Mobility, Concurrent Therapy, Education, Functional Activity Ana, Functional Strength, Group Therapy, Gait, Safety, Therapeutic Exercise, Transfers Treatment Duration: Aug 22, 2017 Frequency: At least 5 of 7 days/Wk (IRF) Estimated Hrs Per Day: 1.5 hours per day Patient and/or Family Agrees t: Yes Time/GCodes Time In: 1000 Time Out: 1103 Total Billed Treatment Time: 63 Total Billed Treatment visit, ther ex 30 min, FA 33 min JD MOSELEY PT Aug 15, 2017 11:18
--- NOTE | 2017-08-15 14:36 | Therapy Group Daily Note ---
Therapy Daily Group Note Exercises Fine Motor, UE Exercise Other/Notes Pt. attended group PT OT session this date. Pt. came via w/c with max to mod assist for all TRFs. Pts introduced selves and were social sharing place of and favorite childhood game as well as at end of group; 'words of inspiration'. Pts. in small groups of 3-4 playing their choice of puzzle assembly or checkers, Sujit or dominoes. Pt. engaged in sitting balance core stabilization, fine motor, problem solving and pincer grasp during puzzle assembly while enjoying visiting and interacting with others at table. Pt. in room after group with mod to max assist to situate in bed with sosa in hand. Start Time: 13:00 Stop Time: 14:05 Total Billed Treatment Time: 65 Total Billed Treatment 1,GRP NIKKI KIM ORDER ENTRY REPRESENTATIVE Aug 15, 2017 14:36
[2017-08-15 18:15] VITALS: BP 122/77
[2017-08-15] MEDS: meTOprolol TARTRATE 25 MG (LOPRESSOR) TABLET PO SCH (20:55)
[2017-08-15] MEDS: MIRTAZAPINE 15 MG (REMERON) TAB PO SCH (20:55)
[2017-08-16] MEDS: ACETAMINOPHEN 500 MG TAB (TYLENOL) PO PRN ×2 (01:58→18:21)
[2017-08-16 03:00] VITALS: BP 129/76
[2017-08-16] MEDS: PRIMIDONE 250MG (MYSOLINE) TAB PO SCH ×3 (06:12→21:35)
[2017-08-16] MEDS: METOCLOPRAMIDE 5 MG (REGLAN) TAB PO SCH ×4 (06:12→21:36)
[2017-08-16] MEDS: PANTOPRAZOLE 20 MG TABLET (PROTONIX) PO SCH ×2 (06:12→15:51)
[2017-08-16] MEDS: ONDANSETRON 4 MG (ZOFRAN) ORAL DISSOLVE TAB PO PRN (07:43)
[2017-08-16] MEDS: HYDROcodone/APAP 5 MG/325 MG (LORTAB) TAB PO PRN (07:43)
--- NOTE | 2017-08-16 08:15 | Physical Therapy Daily Note ---
PT Daily Note-Current Subjective Pt laying Supine in bed upon arrival. Pt reports having pain around pacemaker & some tightness in L upper calf, nurse notified and meds given. Pt agrees to PT. Pain Numeric Pain Scale: 5-Moderate Pain Location: Left Location Body Site: Thigh Pain Description: Ache, Tightness Mental Status Patient Orientation: Person, Place, Situation Attachments: Other-See Comments (R knee immobilizer) Transfers Functional [place] Measure 0=Not Assessed/NA 4=Minimal Assistance 1=Total Assistance 5=Supervision or Setup 2=Maximal Assistance 6=Modified [place] 3=Moderate Assistance 7=Complete IndependenceIRFPAI Quality Coding Scale 6 Independent with activity with or without an assistive device 5 Patient requires set up or clean up by helper. Patient completes activity by themselves 4 Supervision or touching assist (CGA). [place] provide cues , steadying assist 3 The helper provides less than half the effort to complete the activity 2 The helper provides more than half the effort to complete the activity 1 Dependent. The helper does all the effort to complete an activity 7 Patient refused to complete or attempt activity 9 The patient did not perform the activity before the current illness or injury 88 Not attempted due to Medical conditions or safety concerns Weight Bearing Right Lower Extremity: Right Non Weight Bearing Left Lower Extremity: Left Full Weight Bearing Exercises Supine Ex: Ankle pumps, Quad Set, Heel Slides, Straight leg raise, Hip abd/add Supine Reps: 15 Treatments Pt received meds from Nurse at start of tx. Pt completed Supine Ex in bed with a couple short rest breaks. Pt's RLE is repositioned with pillow to help prevent additional IR. Pt resting in bed at end of tx with all needs met including Nurse ordered breakfast. Assessment Current Status: Good Progress Pt fatigues but is getting stronger. Pt reports feeling like RLE is "so heavy to try to lift/move". PT Short Term Goals Short Term Goals Time Frame: Aug 08, 2017 Transfers (B,C,W/C) (FIM): 3 Gait (FIM): 1 Distance (FIM): 6=757-40 ft Gait Distance Comment: 20' Gait Level of Assist: 4 Gait Assistive Device: FWW Wheelchair (FIM): 5 Wheelchair distance (FIM): 0=381-60 ft Wheelchair Distance: 150 Wheelchair Level of Assist: 5 PT Alf Goals Brewing Director Goals PT Brewing Director Goals Time Frame: Aug 22, 2017 Transfers (B,C,W/C) (FIM): 5 Sit to Lying (QC): 4 Lying-Sitting on Side/Bed(QC): 4 Sit to Stand (QC): 4 Rollin Roll Left to Right (QC): 4 Chair/Cyg-lt-Tmtds Xfer(QC): 4 Car Transfer (QC): 4 Does the Patient Walk: No and Walking Goal IS indicated Gait (FIM): 2 Distance: 50' Walk 10 feet (QC): 4 Walk 10ft-Uneven Surface(QC): 4 Walk 50ft with 2 Turns (QC): 4 Walk 150 ft (QC): 4 Gait Level of Assist: 5 Gait Assistive Device: FWW Does the Pt use WC or Scooter?: No Stairs (FIM): 2 # of Steps: 4 1 Step (curb) (QC): 4 4 Steps (QC): 4 12 Steps (QC): 88 Stairs Level Of Assist: 4 PT Plan Problem List Problem List: Activity Tolerance, Functional Strength, Safety, Balance, Gait, Transfer Treatment/Plan Treatment Plan: Continue Plan of Care Treatment Plan: Bed Mobility, Concurrent Therapy, Education, Functional Activity Ana, Functional Strength, Group Therapy, Gait, Safety, Therapeutic Exercise, Transfers Treatment Duration: Aug 22, 2017 Frequency: At least 5 of 7 days/Wk (IRF) Estimated Hrs Per Day: 1.5 hours per day Patient and/or Family Agrees t: Yes Safety Risks/Education Patient Education: Correct Positioning, Safety Issues Teaching Recipient: Patient Teaching Methods: Discussion Response to Teaching: Verbalize Understanding Time/GCodes Time In: 740 Time Out: 805 Total Billed Treatment Time: 25 Total Billed Treatment 1, EX (17m) & FA (8m) SHERITA JAY CURTAIN H[employer]MER [employer] Aug 16, 2017 08:15
[2017-08-16 08:40] VITALS: BP 121/63
[2017-08-16] MEDS: meTOprolol TARTRATE 50 MG (LOPRESSOR) TAB PO SCH (08:40)
[2017-08-16] MEDS: ASPIRIN E.C. 325 MG (ECOTRIN) TABLET PO SCH (08:40)
[2017-08-16] MEDS: FAMOTIDINE 20 MG (PEPCID) TABLET PO SCH (08:40)
[2017-08-16] MEDS: LACTOBACILLUS Acidoph/Bulgar (LACTINEX/FLORANEX) TAB PO SCH (08:40)
[2017-08-16] MEDS: DULoxetine 30 MG (CYMBALTA) CAP PO SCH (08:40)
[2017-08-16] MEDS: DILTIAZEM 30 MG (CARDIZEM) TAB PO SCH ×2 (08:41→21:35)
[2017-08-16] MEDS: clonazePAM 0.5 MG (KlonoPIN) TAB PO SCH ×3 (08:41→21:35)
[2017-08-16] MEDS: SENNA W/DOCUSATE (SENOKOT S) TABLET PO SCH ×2 (08:42→21:36)
[2017-08-16 17:25] VITALS: BP 134/79
[2017-08-16] MEDS: meTOprolol TARTRATE 25 MG (LOPRESSOR) TABLET PO SCH (21:35)
[2017-08-16] MEDS: MIRTAZAPINE 15 MG (REMERON) TAB PO SCH (21:36)
[2017-08-17] MEDS: ACETAMINOPHEN 500 MG TAB (TYLENOL) PO PRN (01:26)
[2017-08-17 02:00] VITALS: BP 128/77
[2017-08-17] MEDS: PRIMIDONE 250MG (MYSOLINE) TAB PO SCH ×3 (06:04→21:11)
[2017-08-17] MEDS: METOCLOPRAMIDE 5 MG (REGLAN) TAB PO SCH ×4 (06:04→20:52)
[2017-08-17] MEDS: PANTOPRAZOLE 20 MG TABLET (PROTONIX) PO SCH ×2 (06:04→16:34)
[2017-08-17 08:18] VITALS: BP 114/71
[2017-08-17] MEDS: LACTOBACILLUS Acidoph/Bulgar (LACTINEX/FLORANEX) TAB PO SCH (08:19)
[2017-08-17] MEDS: DULoxetine 30 MG (CYMBALTA) CAP PO SCH (08:19)
[2017-08-17] MEDS: ASPIRIN E.C. 325 MG (ECOTRIN) TABLET PO SCH (08:19)
[2017-08-17] MEDS: clonazePAM 0.5 MG (KlonoPIN) TAB PO SCH ×3 (08:19→20:52)
[2017-08-17] MEDS: DILTIAZEM 30 MG (CARDIZEM) TAB PO SCH ×2 (08:20→20:52)
[2017-08-17] MEDS: meTOprolol TARTRATE 50 MG (LOPRESSOR) TAB PO SCH (08:20)
[2017-08-17] MEDS: SENNA W/DOCUSATE (SENOKOT S) TABLET PO SCH ×2 (08:20→20:52)
[2017-08-17] MEDS: FAMOTIDINE 20 MG (PEPCID) TABLET PO SCH (08:20)
[2017-08-17] MEDS: HYDROcodone/APAP 5 MG/325 MG (LORTAB) TAB PO PRN ×2 (11:30→18:14)
[2017-08-17 17:21] VITALS: BP 145/82
[2017-08-17] MEDS: MIRTAZAPINE 15 MG (REMERON) TAB PO SCH (20:52)
[2017-08-17] MEDS: meTOprolol TARTRATE 25 MG (LOPRESSOR) TABLET PO SCH (20:52)
[2017-08-18] MEDS: HYDROcodone/APAP 5 MG/325 MG (LORTAB) TAB PO PRN ×2 (01:37→08:33)
[2017-08-18 02:25] VITALS: BP 110/66
[2017-08-18] MEDS: clonazePAM 0.5 MG (KlonoPIN) TAB PO SCH (04:03)
[2017-08-18] MEDS: FAMOTIDINE 20 MG (PEPCID) TABLET PO SCH ×3 (04:03→05:41)
[2017-08-18] MEDS: METOCLOPRAMIDE 5 MG (REGLAN) TAB PO SCH (04:04)
[2017-08-18] MEDS: PRIMIDONE 250MG (MYSOLINE) TAB PO SCH (05:39)
[2017-08-18] MEDS: PANTOPRAZOLE 20 MG TABLET (PROTONIX) PO SCH (05:50)
[2017-08-18] MEDS: ASPIRIN E.C. 325 MG (ECOTRIN) TABLET PO SCH (08:32)
[2017-08-18] MEDS: DILTIAZEM 30 MG (CARDIZEM) TAB PO SCH (08:32)
[2017-08-18] MEDS: SENNA W/DOCUSATE (SENOKOT S) TABLET PO SCH (08:32)
[2017-08-18] MEDS: LACTOBACILLUS Acidoph/Bulgar (LACTINEX/FLORANEX) TAB PO SCH (08:32)
[2017-08-18] MEDS: DULoxetine 30 MG (CYMBALTA) CAP PO SCH (08:32)
[2017-08-18] MEDS: meTOprolol TARTRATE 50 MG (LOPRESSOR) TAB PO SCH (08:32)
[2017-08-18] MEDS: ONDANSETRON 4 MG (ZOFRAN) ORAL DISSOLVE TAB PO PRN (09:05)
--- NOTE | 2017-08-18 09:10 | Physical Therapy Daily Note ---
PT Daily Note-Current Subjective Pt reports she is tranferring to [facility] in [place] today. Transfers Functional [place] Measure 0=Not Assessed/NA 4=Minimal Assistance 1=Total Assistance 5=Supervision or Setup 2=Maximal Assistance 6=Modified [place] 3=Moderate Assistance 7=Complete IndependenceIRFPAI Quality Coding Scale 6 Independent with activity with or without an assistive device 5 Patient requires set up or clean up by helper. Patient completes activity by themselves 4 Supervision or touching assist (CGA). [place] provide cues , steadying assist 3 The helper provides less than half the effort to complete the activity 2 The helper provides more than half the effort to complete the activity 1 Dependent. The helper does all the effort to complete an activity 7 Patient refused to complete or attempt activity 9 The patient did not perform the activity before the current illness or injury 88 Not attempted due to Medical conditions or safety concerns Transfers (B, C, W/C) (FIM): 2 Scootin Roll Left to Right (QC): 4 Sit to Lying (QC): 4 (assist with right LE) Sit to Stand (QC): 2 (max assist to come to a full stand) Chair/Ujy-mh-Jetwu Xfer(QC): 2 (max assist with use of FWW, NWB right.) Car Transfer (QC): 2 Weight Bearing Right Lower Extremity: Right Non Weight Bearing Left Lower Extremity: Left Full Weight Bearing Gait Training Does the Patient Walk?: No and Walking Goal IS indicated Gait (FIM): 0 (unable to walk at this time) Walk 10 feet (QC): 88 Walk 50 ft with 2 Turns(QC): 88 Walk 150 ft (QC): 88 Walking 10ft/uneven surface-QC: 88 Does not posess the UE Strength to ambulate with a NWB status at this time. Wheelchair Training Does the Pt Use a Wheelchair?: Yes Wheelchair (FIM): 4 Wheelchair Distance: 3=150 ft Wheelchair Level of Assist: 4 Wheel 50 ft with 2 turns (QC): 4 Wheel 150 ft (QC): 4 Type of Wheelchair: Manual Stair Training Stairs (FIM): 1 (unable; unable to hop; unable to walk) 1 Step (curb) (QC): 88 4 Steps (QC): 88 12 Steps (QC): 88 Balance Picking up an Object (QC): 88 (unsafe and unable) Treatments Co treat with OT to address functional tranfers; OT addressed dressing skills as PT addressed transfer and bed mobility to facilitate the ADL"s. Assessment Current Status: Fair Progress LImited by NWB status right and lacks the left LE and UE strength to hop to mobilize in an upright fashion. PT Short Term Goals Short Term Goals Time Frame: Aug 08, 2017 Transfers (B,C,W/C) (FIM): 3 Gait (FIM): 1 Distance (FIM): 6=731-62 ft Gait Distance Comment: 20' Gait Level of Assist: 4 Gait Assistive Device: FWW Wheelchair (FIM): 5 Wheelchair distance (FIM): 2=718-13 ft Wheelchair Distance: 150 Wheelchair Level of Assist: 5 PT Fpc Goals Outside Residential Sales Professional Goals PT Fpc Goals Time Frame: Aug 22, 2017 Transfers (B,C,W/C) (FIM): 5 Sit to Lying (QC): 4 Lying-Sitting on Side/Bed(QC): 4 Sit to Stand (QC): 4 Rollin Roll Left to Right (QC): 4 Chair/Dth-vp-Swcku Xfer(QC): 4 Car Transfer (QC): 4 Does the Patient Walk: No and Walking Goal IS indicated Gait (FIM): 2 Distance: 50' Walk 10 feet (QC): 4 Walk 10ft-Uneven Surface(QC): 4 Walk 50ft with 2 Turns (QC): 4 Walk 150 ft (QC): 4 Gait Level of Assist: 5 Gait Assistive Device: FWW Does the Pt use WC or Scooter?: No Stairs (FIM): 2 # of Steps: 4 1 Step (curb) (QC): 4 4 Steps (QC): 4 12 Steps (QC): 88 Stairs Level Of Assist: 4 No goals met. Pt to transfer to LTC facility this date. Limited by NWB status. PT Plan Problem List Problem List: Activity Tolerance, Functional Strength, Safety, Balance, Gait, Transfer, Bed Mobility Treatment/Plan Treatment Plan: Discontinue PT Treatment Plan: Bed Mobility, Concurrent Therapy, Education, Functional Activity Ana, Functional Strength, Group Therapy, Gait, Safety, Therapeutic Exercise, Transfers Treatment Duration: Aug 22, 2017 Frequency: At least 5 of 7 days/Wk (IRF) Estimated Hrs Per Day: 1.5 hours per day Patient and/or Family Agrees t: Yes Safety Risks/Education Patient Education: Transfer Techniques, Safety Issues Teaching Recipient: Patient Teaching Methods: Demonstration, Discussion Response to Teaching: Reinforcement Needed Discharge Recommendations Therapy D/C Recommendations: Half-Way (TCU/NH) (recommend PT ) Time/GCodes Time In: 845 Time Out: 900 ([id number]) Total Billed Treatment Time: 25 Total Billed Treatment visit FA 15 visit WC 10 SONIA MEYER PT Aug 18, 2017 09:10
--- NOTE | 2017-08-18 09:48 | Speech Therapy Daily Note ---
Speech Daily Progress Note Subjective Date Seen by Provider: Aug 18, 2017 Time Seen by Provider: 09:00 The patient was seated upright in bed upon entrance. The patient greeted the clinician and was agreeable to participation in the cognitive treatment session. The patient reports nausea and the patient's RN presented to the room to provide nausea medication. Objective Orientation: The patient independently provided the clinician with name, location, month, day of week, and year. The patient did not use the in-room white board (external aid) on this date. Functional Recall/Safety Problem Solving: The patient was able to independently recall therapy events of the weekend, as well as, the therapy tasks completed prior to the clinician's session. The patient additionally recalled safety precautions, including her inability to put weight on her right leg. The patient was able to recall her breakfast order, as well as, her medication. Assessment Assessment Current Status: Good Progress Treatment Plan Continue Plan of Care Communication Comprehension: 4 Expression: 4 Social Cognition Social Interaction: 5 Problem Solvin Memory: 4 Speech Short Term Goals Short Term Goals Short Term Goals 1. The patient will complete a full cognitive evaluation with limited verbal prompting from the clinician. MET (08/05/17) 2. The patient will provide simple orientation information with 90% accuracy independently or with the use of an external aid. 3. The patient will recall two functional memory strategies for use at home. 4. The patient will demonstrate 80% accuracy with safety problem solving with mild clinician verbal cueing. Time Frame-STG: Two Weeks Speech Mcfp Goals Channel Machine Operator Goals 1. The patient will demonstrate improved cognitive linguistic skills for increased function and safety with ADL's. Time Frame: Three Weeks Comprehension: 5 (NOT MET) Expression: 5 (NOT MET) Social Interaction: 5 (MET) Problem Solvin (NOT MET) Memory: 4 (MET) Speech-Plan Treatment Plan Speech Therapy Treatment Plan: Discontinue ST The patient is to discharge from inpatient rehabilitation on this date. Due to this, skilled speech pathology services are discharged. Treatment Duration: Aug 18, 2017 Frequency: Modified Program (IRF) (Four to five times per week.) Estimated Hrs Per Day: .5 hour per day Rehab Potential: Fair Safety Risks/Education Teaching Recipient: Patient Teaching Methods: Discussion Response to Teaching: Verbalize Understanding Education Topics Provided: Results, Recommendations, Plan of Care Time Speech Therapy Time In: 09:00 Speech Therapy Time Out: 09:15 Total Billed Time: 15 Billed Treatment Time 1, ELENA OTOOLE Aug 18, 2017 09:48
--- NOTE | 2017-08-18 09:50 | Therapy Team Discharge Summary ---
Therapy Discharge Summary Discharge Recommendations Date of Discharge Therapy D/C Recommendations: Assisted (TCU/NH) (recommend PT ) Occupational Therapy Decreased Activ Tolerance, Decreased UE Strength, Dependent Transfers, Impaired Bed Mobility, Impaired Cognition, Impaired Funct Balance, Impaired I ADL's, Impaired Self-Care Skills Speech-Language Pathology The patient was recently admitted to [facility] following a right leg fracture. Upon admission, the patient demonstrated increased confusion and reduced orientation. Skilled speech pathology focused on functional memory strategies, functional safety problem solving, and simple orientation. The patient demonstrated improved with cognition throughout her stay, however, did not meet problem solving goals placed by this clinician. At this time, the patient will discharge to a halfway facility. Skilled speech pathology services are not warranted following discharge. PT Shelter Goals Shelter Goals PT Shelter Goals Time Frame: Aug 22, 2017 Transfers (B,C,W/C) (FIM): 5 Roll Left to Right (QC): 4 Sit to Lying (QC): 4 Lying-Sitting on Side/Bed(QC): 4 Sit to Stand (QC): 4 Chair/Fmx-fj-Vfzdl Xfer(QC): 4 Car Transfer (QC): 4 Does the Patient Walk: No and Walking Goal IS indicated Gait (FIM): 2 Distance: 50' Walk 10 feet (QC): 4 Walk 10ft-Uneven Surface(QC): 4 Walk 50ft with 2 Turns (QC): 4 Walk 150 ft (QC): 4 Gait Level of Assist: 5 Gait Assistive Device: FWW Does the Pt use WC or Scooter?: No Stairs (FIM): 2 # of Steps: 4 1 Step (curb) (QC): 4 4 Steps (QC): 4 12 Steps (QC): 88 Stairs Level Of Assist: 4 OT Shelter Goals Washing Machine Repairer Goals Time Frame: Aug 22, 2017 Eating (FIM): 6 Eating (QC): 6 Oral Hygiene (QC): 6 Grooming(FIM): 6 Bathing(FIM): 5 Shower/Bathe Self (QC): 5 Upper Body Dressing(FIM): 5 Upper Body Dressing (QC): 5 Lower Body Dressing(FIM): 5 Lower Body Dressing (QC): 5 On/Off Footwear (QC): 5 Toileting(FIM): 5 Toileting Hygiene (QC): 5 Toilet/Commode Transfer(FIM): 5 Toilet/Commode Transfer (QC): 5 Shower Transfer(FIM): 5 Comprehension(FIM): 5 (NOT MET) Expression (FIM): 5 (NOT MET) Social Interaction(FIM): 5 (MET) Problem Solving(FIM): 4 (NOT MET) Memory(FIM): 4 (MET) Additional Goals: 1-Demonstrate ADL Tasks, 2-Verbalize Understanding, 3- ImproveStrength/Ana 1=Demonstrate adherence to instructed precautions during ADL tasks. 2=Patient will verbalize/demonstrate understanding of assistive devices/ modifications for ADL. 3=Patient will improve strength/tolerance for activity to enable patient to perform ADL's. Speech Washing Machine Repairer Goals Washing Machine Repairer Goals 1. The patient will demonstrate improved cognitive linguistic skills for increased function and safety with ADL's. Time Frame: Three Weeks Comprehension: 5 (NOT MET) Expression: 5 (NOT MET) Social Interaction: 5 (MET) Problem Solvin (NOT MET) Memory: 4 (MET) ELENA AHN Aug 18, 2017 09:50
[2017-08-18 10:40] VITALS: BP 113/68
--- NOTE | 2017-08-18 10:51 | Therapy Team Discharge Summary ---
Therapy Discharge Summary Discharge Recommendations Date of Discharge Therapy D/C Recommendations: Retirement (TCU/NH) (recommend PT ) Occupational Therapy Decreased Activ Tolerance, Decreased UE Strength, Dependent Transfers, Impaired Bed Mobility, Impaired Cognition, Impaired Funct Balance, Impaired I ADL's, Impaired Self-Care Skills Speech-Language Pathology This patient was seen on ARU post acute stay due to fall with distal right femur fracture. Prior to fall, she was indep to mod indep with all functional mobility. Upon admit, she was dependent with transfers, unable to functionally stand or take steps. Treatment has consisted of LE strength, transfer training , standing activities, wheelchair mobiolity and safety education. At discharge , she is max assist with transfers, needs assist to lift her right leg into bed , min assist wity wheelchair mobiltiy. Her primary limitation is NWB status and impaired left LE and B UE strength to compensate. Feel with continued therapy and extended time, as WB restriction is lifted, she will make functional progress in terms of tranfers and gait. No goals met at this time. Pt to discharge to LTC in [place]. DC PT. PT Dental Surgeon Goals Dental Surgeon Goals PT Intermediate Goals Time Frame: Aug 22, 2017 Transfers (B,C,W/C) (FIM): 5 Roll Left to Right (QC): 4 Sit to Lying (QC): 4 Lying-Sitting on Side/Bed(QC): 4 Sit to Stand (QC): 4 Chair/Kdk-ot-Amzvs Xfer(QC): 4 Car Transfer (QC): 4 Does the Patient Walk: No and Walking Goal IS indicated Gait (FIM): 2 Distance: 50' Walk 10 feet (QC): 4 Walk 10ft-Uneven Surface(QC): 4 Walk 50ft with 2 Turns (QC): 4 Walk 150 ft (QC): 4 Gait Level of Assist: 5 Gait Assistive Device: FWW Does the Pt use WC or Scooter?: No Stairs (FIM): 2 # of Steps: 4 1 Step (curb) (QC): 4 4 Steps (QC): 4 12 Steps (QC): 88 Stairs Level Of Assist: 4 No goals met. Pt is making slow progress but will need extended time due to NWB status R LE. OT Intermediate Goals Intermediate Goals Time Frame: Aug 22, 2017 Eating (FIM): 6 Eating (QC): 6 Oral Hygiene (QC): 6 Grooming(FIM): 6 Bathing(FIM): 5 Shower/Bathe Self (QC): 5 Upper Body Dressing(FIM): 5 Upper Body Dressing (QC): 5 Lower Body Dressing(FIM): 5 Lower Body Dressing (QC): 5 On/Off Footwear (QC): 5 Toileting(FIM): 5 Toileting Hygiene (QC): 5 Toilet/Commode Transfer(FIM): 5 Toilet/Commode Transfer (QC): 5 Shower Transfer(FIM): 5 Comprehension(FIM): 5 (NOT MET) Expression (FIM): 5 (NOT MET) Social Interaction(FIM): 5 (MET) Problem Solving(FIM): 4 (NOT MET) Memory(FIM): 4 (MET) Additional Goals: 1-Demonstrate ADL Tasks, 2-Verbalize Understanding, 3- ImproveStrength/Ana 1=Demonstrate adherence to instructed precautions during ADL tasks. 2=Patient will verbalize/demonstrate understanding of assistive devices/ modifications for ADL. 3=Patient will improve strength/tolerance for activity to enable patient to perform ADL's. Speech Intermediate Goals Intermediate Goals 1. The patient will demonstrate improved cognitive linguistic skills for increased function and safety with ADL's. Time Frame: Three Weeks Comprehension: 5 (NOT MET) Expression: 5 (NOT MET) Social Interaction: 5 (MET) Problem Solvin (NOT MET) Memory: 4 (MET) SONIA MEYER PT Aug 18, 2017 10:51
--- NOTE | 2017-08-18 11:09 | Occupational Ther Daily Note ---
OT Current Status-Daily Note Subjective Pt alert, sitting on BSC. Pt agreed to therapy. Pt c/o nausea, nrsg notified. Mental Status/Objective Patient Orientation: Person, Place, Time, Situation Functional [place] Measure 0=Not Assessed/NA 4=Minimal Assistance 1=Total Assistance 5=Supervision or Setup 2=Maximal Assistance 6=Modified [place] 3=Moderate Assistance 7=Complete [place] ADL-Treatment Functional [place] Measure 0=Not Assessed/NA 4=Minimal Assistance 1=Total Assistance 5=Supervision or Setup 2=Maximal Assistance 6=Modified [place] 3=Moderate Assistance 7=Complete IndependenceIRFPAI Quality Coding Scale 6 Independent with activity with or without an assistive device 5 Patient requires set up or clean up by helper. Patient completes activity by themselves 4 Supervision or touching assist (CGA). [place] provide cues , steadying assist 3 The helper provides less than half the effort to complete the activity 2 The helper provides more than half the effort to complete the activity 1 Dependent. The helper does all the effort to complete an activity 7 Patient refused to complete or attempt activity 9 The patient did not perform the activity before the current illness or injury 88 Not attempted due to Medical conditions or safety concerns Eating (FIM): 5 (Set up required due to increased tremors. Pt able to use regular utensils to cut food and feed self.) Eating (QC): 5 Grooming (FIM): 6 (Sitting in w/c, pt is able to complete all grooming by self. ) Oral Hygiene (QC): 6 Bathing (FIM): 5 (Using transport shower chair with cutout and hand held shower pt is able to reach all areas without standing. Pt is able to use hand held shower to rinse off. Pt dries self sitting on shower chair. Pt unable to cleanse R LE due to brace.) Bathing Location: L Arm, R Arm, L Upper Leg, R Upper Leg, L Lower Leg ( including foot), Chest, Abdomen, Buttocks, Perineal Area Shower/Bathe Self (QC): 4 (Supervision) Upper Body (FIM): 5 (After set up, pt is able to don/doff upper body clothing.) Upper Body Dressing (QC): 5 Lower Body Dressing (FIM): 1 (Assist to don/doff pants and briefs over feet and hips. Pt is able to assist with rolling side to side to don/doff clothing in bed. When standing to hike pants over hips, assist x2.) Lower Body Dressing (QC): 1 On/Off Footwear (QC): 4 (Pt is able to don/doff socks sitting up in bed for L foot. Unable to bend R knee to reach R foot.) Toileting (FIM): 1 (Sitting on BSC, pt is able to cleanse self. Assist x2 to manipulate clothing.) Toileting Hygiene (QC): 1 Toilet/Commode Transfer (FIM): 2 (Max A with FWW and without FWW.) Toilet Transfer (QC): 2 Shower Transfer(FIM): 1 (Using rolling shower chair with cutout.) PT co-treat for 15 min. PT working on functional transfers and bed mobility while OT worked on dressing skills. After therapy, pt lying in bed with call light/phone in reach. All needs met in room. OT Short Term Goals Short Term Goals Time Frame: Aug 15, 2017 Bathing(FIM): 4 Lower Body Dressing(FIM): 3 Toileting(FIM): 3 Transfers (B,C,W/C) (FIM): 3 Toilet/Commode Transfer(FIM): 3 Additional Short Term Goals: 1-Demonstrate ADL Tasks, 2-Verbalize Understanding , 3-ImproveStrength/Ana 1=Demonstrate adherence to instructed precautions during ADL tasks. 2=Patient will verbalize/demonstrate understanding of assistive devices/ modifications for ADL. 3=Patient will improve strength/tolerance for activity to enable patient to perform ADL's. OT Alf Goals Alf Goals Time Frame: Aug 22, 2017 Eating (FIM): 6 (not met) Eating (QC): 6 (not met) Groomin (met-08/18/2017) Oral Hygiene (QC): 6 (met-08/18/2017) Bathing(FIM): 5 (met-08/18/2017) Shower/Bathe Self (QC): 5 (met-08/18/2017) Upper Body Dressing(FIM): 5 (met-08/18/2017) Upper Body Dressing (QC): 5 (met-08/18/2017) Lower Body Dressing(FIM): 5 (not met) Lower Body Dressing (QC): 5 (not met) On/Off Footwear (QC): 5 (not met) Toileting(FIM): 5 (not met) Toileting Hygiene (QC): 5 (not met) Toilet/Commode Transfer(FIM): 5 (not met) Toilet/Commode Transfer (QC): 5 (not met) Shower Transfer(FIM): 5 (not met) Comprehension(FIM): 5 (NOT MET) Expression (FIM): 5 (NOT MET) Social Interaction(FIM): 5 (MET) Problem Solving(FIM): 4 (NOT MET) Memory(FIM): 4 (MET) Additional Goals: 1-Demonstrate ADL Tasks, 2-Verbalize Understanding, 3- ImproveStrength/Ana 1=Demonstrate adherence to instructed precautions during ADL tasks. 2=Patient will verbalize/demonstrate understanding of assistive devices/ modifications for ADL. 3=Patient will improve strength/tolerance for activity to enable patient to perform ADL's. OT Education/Plan Problem List/Assessment Pt would benefit from skilled OT to increase her independence in basic self care and to decrease caregiver burden Discharge Recommendations Plan/Recommendations: Continue POC Treatment Plan/Plan of Care Patient would benefit from OT for education, treatment and training to promote independence in ADL's, mobility, safety and/or upper extremity function for ADL' s. Plan of Care: ADL Retraining, Functional Mobility, Group Exercise/Act as Ind ( education, exercise, act tolerance, funct activities, mobility), UE Funct Exercise/Act, UE Neuromus Re-Ed/Coord Treatment Duration: Aug 22, 2017 Frequency: At least 5 of 7 days/Wk (IRF) Estimated Hrs Per Day: 1.5 hours per day Agreement: Yes Rehab Potential: Fair Time/GCodes Start Time: 08:00 Stop Time: 09:00 Total Time Billed (hr/min): 60 Billed Treatment Time 1 visit-ADL 4 (60 min) individual time 45 min ([id number]) co-treat with PT 15 min ([id number]) SONIA CROCKETT Aug 18, 2017 11:09
--- NOTE | 2017-08-18 11:14 | Therapy Team Discharge Summary ---
Therapy Discharge Summary Discharge Recommendations Date of Discharge 08-18-17 Therapy D/C Recommendations: [facility] (TCU/NH) (recommend PT ) Occupational Therapy Pt was seen for skilled OT to increase her independence in basic self care after a fall at home, with femur fx and ORIF. On admission pt needed setup for grooming and upper body dressing, mod assist bathing, max assist toilet transfer and was dependant with lower body dressing and toileting. By discharge she had improved to setup for eating, modified independent with grooming at w/c level, setup for upper body dressing, min assist bathing, max assist toilet transfer and dependant with lower body dressing and toileting. She used FWW, BSC , wheeled shower chair. She was transferred to retirement near home for continued therapy. See tx plan for goals met. DC OT. Decreased Activ Tolerance, Decreased UE Strength, Dependent Transfers, Impaired Bed Mobility, Impaired Cognition, Impaired Funct Balance, Impaired I ADL's, Impaired Self-Care Skills PT Microsoft Developer Goals Microsoft Developer Goals PT Microsoft Developer Goals Time Frame: Aug 22, 2017 Transfers (B,C,W/C) (FIM): 5 Roll Left to Right (QC): 4 Sit to Lying (QC): 4 Lying-Sitting on Side/Bed(QC): 4 Sit to Stand (QC): 4 Chair/Ons-qs-Buwdk Xfer(QC): 4 Car Transfer (QC): 4 Does the Patient Walk: No and Walking Goal IS indicated Gait (FIM): 2 Distance: 50' Walk 10 feet (QC): 4 Walk 10ft-Uneven Surface(QC): 4 Walk 50ft with 2 Turns (QC): 4 Walk 150 ft (QC): 4 Gait Level of Assist: 5 Gait Assistive Device: FWW Does the Pt use WC or Scooter?: No Stairs (FIM): 2 # of Steps: 4 1 Step (curb) (QC): 4 4 Steps (QC): 4 12 Steps (QC): 88 Stairs Level Of Assist: 4 OT Half-Way Goals Half-Way Goals Time Frame: Aug 22, 2017 Eating (FIM): 6 (not met) Eating (QC): 6 (not met) Oral Hygiene (QC): 6 (met) Grooming(FIM): 6 (met) Bathing(FIM): 5 (not met) Shower/Bathe Self (QC): 5 (not met) Upper Body Dressing(FIM): 5 (met) Upper Body Dressing (QC): 5 (met) Lower Body Dressing(FIM): 5 (not met) Lower Body Dressing (QC): 5 (not met) On/Off Footwear (QC): 5 (not met) Toileting(FIM): 5 (not met) Toileting Hygiene (QC): 5 (not met) Toilet/Commode Transfer(FIM): 5 (not met) Toilet/Commode Transfer (QC): 5 (not met) Shower Transfer(FIM): 5 (not met) Comprehension(FIM): 5 (NOT MET) Expression (FIM): 5 (NOT MET) Social Interaction(FIM): 5 (MET) Problem Solving(FIM): 4 (NOT MET) Memory(FIM): 4 (MET) Additional Goals: 1-Demonstrate ADL Tasks, 2-Verbalize Understanding, 3- ImproveStrength/Ana 1=Demonstrate adherence to instructed precautions during ADL tasks. 2=Patient will verbalize/demonstrate understanding of assistive devices/ modifications for ADL. 3=Patient will improve strength/tolerance for activity to enable patient to perform ADL's. Speech Half-Way Goals Half-Way Goals 1. The patient will demonstrate improved cognitive linguistic skills for increased function and safety with ADL's. Time Frame: Three Weeks Comprehension: 5 (NOT MET) Expression: 5 (NOT MET) Social Interaction: 5 (MET) Problem Solvin (NOT MET) Memory: 4 (MET) MINOO HOLLAND OT Aug 18, 2017 11:14
--- NOTE | 2017-08-18 19:06 | PM & R (SOAP) Progress Note ---
Subjective Time Seen by Provider: 12:00 Subjective/Events-last exam Patient had diificulty making gains with therapy due to limited WBS and SW assisted patient and her family with placement at SNU in her home community for ongoing care and therapies Objective Exam Last Set of Vital Signs Vital Signs Date Time Temp Pulse Resp B/P (MAP) Pulse Ox O2 Delivery O2 Flow Rate FiO2 08/18/17 10:40 77 16 113/68 98 Room Air 08/18/17 02:25 97.4 Capillary Refill : I&O Intake and Output 08/18/17 00:00 Intake Total 1140 ml Balance 1140 ml Intake Oral 1140 ml # Voids 10 General: Alert, Oriented X3, Cooperative, No Acute Distress HEENT: Atraumatic, PERRLA, EOMI, Mucous Memb Moist/[place] Neck: Supple, No JVD Lungs: Clear to Auscultation Heart: Regular Rate, Other (S/P pacemaker) Abdomen: Normal Bowel Sounds, Soft, No Tenderness Extremities: Other (distal edema in ankle decreasing) Neuro: Other (Weakness RT leg functional BUES and LEFT LE) Psych/Mental Status: Mental Status NL Assessment/Plan Assessment Distal RT Femur FRX s/p ORIF OSH NWB RLE Prior RT TKR Postop anemia Nausea-improved HTN Renal insufficiency Hypoalbuminemia S/P pacemanker for SSS S/P cardiac ablation Plan Discharge to SNu for ongoing care as per above F/U with her PCP and ortho See orders. JACQUELINE HORNE MD Aug 18, 2017 19:06
--- NOTE | 2017-08-20 10:16 | DISCHARGE SUMMARY ---
DATE OF SERVICE: HISTORY OF PRESENT ILLNESS: The patient is an 82-year-old female who has been living alone in an apartment in [facility] with her daughter looking on her daily, who fell at home and sustained a distal right femur fracture. The patient was admitted to [facility] and underwent ORIF of the right distal femur. The patient was made nonweightbearing right lower extremity and was referred to inpatient rehabilitation unit [facility] so as to be closer to home for ongoing care and therapies with goal of return home with daughter at home health care. She had been modified independent with a front wheel walker for the most part prior to this. PAST MEDICAL HISTORY: Postop anemia requiring transfusion. She had acute renal failure due to dehydration and she was provided with IV fluids. She has a history of SVT and is on diltiazem, also sick sinus syndrome, status post pacemaker. She has had bilateral total knee replacement and right total hip arthroplasty as well. MEDICAL COURSE: The patient was followed by Dr. Rodriguez and Dr. Alvarado while on rehab unit. She had significant swelling in the right ankle. A Doppler was done, which was negative for DVT. She was provided with a diuretic with some improvement; however, due to her nonweightbearing status and her recent fracture and repair, she was unable to make significant goals in therapies and social studies teacher assisted the patient and her daughter with placement at a local care center. She was somewhat hypotensive upon admission to rehab, some meds were held and blood pressure is 113/68 on 08/18/2017, heart rate 77 and irregular. She was afebrile during her stay. O2 sat 98% on room air. She did have some abdominal pain, which was apparently due to calcification. Medications were adjusted. Degenerative changes were noted in the left hip. Incidentally surgical clips in the gallbladder fossa were noted. Calcific densities in the pelvis were noted as well. No acute abnormalities were noted. CBC on 08/04/2017 revealed WBC 8.2, H and H 9.6/, platelet count 374 K. Chemistry showed chloride 109, CO2 19, BUN 21, creatinine 1.36, albumin 3.1, total protein 5.9, blood glucose 105. Medications were adjusted for pain control. Her incision site was healing well and carlos were removed on 08/13/2017. She did have some nausea, which improved with medication adjustment and treatment of her constipation. REHABILITATION COURSE: Due to her nonweightbearing status, general comorbidities functional gains were limited. OT notes that upon admission, she was supervision for eating, min assist for lower body dressing, independent for the remainder of her ADLs as she remained the same. PT notes upon admission, she is dependent for transfers, bed mobility, nonambulatory. Upon discharge, she was max assist for transfers and min assist for wheelchair mobility, which had improved. Speech therapy noted that upon admission, the patient demonstrated increased confusion and reduced orientation. The patient demonstrated improvement with cognition throughout her stay; however, did not meet all the problem solving goals placed by this clinician and at this time, the patient will discharge to a longterm facility. She is mod assist for problem solving, min assist for memory, standby assist for social interaction, min assist for expression and comprehension. DISCHARGE INSTRUCTIONS: She will have followup with orthopedics and her PCP. Follow up therapies receiving at longterm facility, continue current diet and nonweightbearing status right lower extremity. DISCHARGE MEDICATIONS: Hydrocodone and APAP 5/325 mg one tablet p.o. q.4h, p.r.n. moderate pain, Protonix 20 mg p.o. b.i.d., primidone 125 mg p.o. q.8h., ASA 325 mg p.o. daily, clonazepam 0.5 mg p.o. t.i.d., diltiazem 30 mg p.o. b.i.d., Colace 100 mg p.o. daily, Cymbalta 60 mg p.o. daily, metoprolol 50 mg p.o. daily and 25 mg p.o. at bedtime, mirtazapine 30 mg p.o. at bedtime, Zantac 150 mg p.o. b.i.d., Prempro 0.5 mg p.o. daily. DISCHARGE DIAGNOSES: 1. Rehabilitation ambulatory dysfunction secondary to fall with resulting distal right femur fracture status post ORIF at [facility] orthopaedic, nonweightbearing right lower extremity. 2. Osteoarthritis with prior total knee replacements and right total hip arthroplasty. 3. Postop anemia status post transfusion, improving. 4. Supraventricular tachycardia, controlled with diltiazem. 5. Sick sinus syndrome, status post pacemaker. 6. renal insufficiency. 7. S/P fall at home. 8. Nausea related to meds and constipation improved. 9. Constipation, improved. 10. Episode of hypotension resolved with adjustment in medications. 11. Hypertension, controlled with medications. 12. Postop confusion, improving with some baseline memory loss apparently. 13. Hypoalbuminemia. 14. OA left hand 15. OA Rt hand 16. RT Leg swelling 17. Mild cognitive deficit CONDITION AT DISCHARGE: Improved and stable. PROGNOSIS: Rehab prognosis appears good for some continued improvement once her weightbearing status is advanced by orthopedics in the next several weeks. Hopefully she will be able to return home with her daughter or to more formal assisted living setting. Job ID: [id number] DocumentID: [id number] Dictated Date: 08/19/2017 14:31:44 Metal Building Assembler Date: 08/20/2017 10:15:17 Dictated By: JACQUELINE RODRIGUEZ MD MTDD
== END 2017-08-18 10:45 | DRG 560 ==
PROVIDERS: ADMIT Physical Medicine & Rehabilitation; ATTEND Physical Medicine & Rehabilitation
DX: S72.401D Unspecified fracture of lower end of right femur, subsequent encounter for closed fracture with routine healing (principal); I49.5 Sick sinus syndrome; I47.1 Supraventricular tachycardia; M19.042 Primary osteoarthritis, left hand; M19.041 Primary osteoarthritis, right hand; D64.9 Anemia, unspecified; R41.89 Other symptoms and signs involving cognitive functions and awareness; N28.9 Disorder of kidney and ureter, unspecified; E88.09 Other disorders of plasma-protein metabolism, not elsewhere classified; M79.89 Other specified soft tissue disorders; Z95.0 Presence of cardiac pacemaker; W19.XXXD Unspecified fall, subsequent encounter; Y92.009 Unspecified place in unspecified non-institutional (private) residence as the place of occurrence of the external cause
CPT/HCPCS: 36415; 74018; 80053; 85027